=== PATIENT | male | born 1960 ===

== ENCOUNTER 2019-01-14 19:57 | Inpatient (IN) | payer BC ==
--- NOTE | 2019-01-14 20:28 | C.PDOC ---
History Of Present Illness The patient presents to the ED after being sent from his PMD's office for evaluation of abnormal labs noted today. Patient underwent blood work this morning and was found to have low hemoglobin and potassium levels. Patient denies chest pain, nausea, vomiting, diarrhea, and black/tarry stools. Time Seen by Provider: 01/14/19 20:28 Chief Complaint (Nursing): Abnormal Labs History Per: Patient History/Exam Limitations: no limitations Onset/Duration Of Symptoms: Hrs Current Symptoms Are (Timing): Still Present Additional History Per: Patient Past Medical History Reviewed: Historical Data, Nursing Documentation, Vital Signs Vital Signs: Last Vital Signs Temp 98.8 F 01/14/19 20:10 Pulse 100 H 01/14/19 20:10 Resp 20 01/14/19 20:10 BP 200/91 H 01/14/19 20:10 Pulse Ox 100 01/14/19 20:10 Primary Care Provider: Logan Aguirre - Medical History PMH: HTN Surgical History: Cholecystectomy Family History: States: Unknown Family Hx - Social History Hx Alcohol Use: No Hx Substance Use: No - Immunization History Hx Tetanus Toxoid Vaccination: No Hx Influenza Vaccination: No Hx Pneumococcal Vaccination: No Review Of Systems Constitutional: Positive for: Other (abnornal labs: low hemoglobin and potassium ). Negative for: Fever, Chills Cardiovascular: Negative for: Chest Pain, Palpitations Respiratory: Negative for: Cough, Shortness of Breath Gastrointestinal: Negative for: Nausea, Vomiting, Diarrhea, Hematochezia Genitourinary: Negative for: Dysuria, Frequency, Hematuria Musculoskeletal: Negative for: Back Pain Skin: Negative for: Rash, Lesions, Jaundice, Bruising Neurological: Negative for: Weakness, Numbness Physical Exam - Physical Exam Appears: Non-toxic, No Acute Distress Skin: Warm, Dry, Pale (slight) Head: Normacephalic Oral Mucosa: Moist Neck: Supple Chest: Symmetrical, No Deformity, No Tenderness Cardiovascular: Rhythm Regular, No Murmur Respiratory: No Rales, No Rhonchi, No Wheezing Extremity: Normal ROM Neurological/Psych: Oriented x3 ED Course And Treatment - Laboratory Results Result Diagrams: 01/14/19 20:40 01/14/19 20:40 ECG: Interpreted By Me, Viewed By Me ECG Rhythm: Sinus Rhythm (98), Nonspecific Changes O2 Sat by Pulse Oximetry: 100 (on RA) Pulse Ox Interpretation: Normal - Radiology CXR Interpretation: No: Infiltrates, Fracture, Pnemothorax Progress Note: Bloodwork, urinalysis, CXR, and EKG ordered and reviewed. Disposition Discussed With : Logan Aguirre Comment: acepted the pt on his service and took over the care at 9:34 PM Doctor Will See Patient In The: Hospital Counseled Patient/Family Regarding: Studies Performed, Diagnosis - Disposition Disposition: HOSPITALIZED Disposition Time: 20:28 Condition: FAIR Forms: #waywire (Kyrgyz) - POA Present On Arrival: Poor Glycemic Control - Clinical Impression Clinical Impression: Anemia, Renal failure, Hypokalemia - Scribe Statement The provider has reviewed the documentation as recorded by the Scribe (Fide Rose) Provider Attestation: All medical record entries made by the Scribe were at my direction and personally dictated by me. I have reviewed the chart and agree that the record accurately reflects my personal performance of the history, physical exam, medical decision making, and the department course for this patient. I have also personally directed, reviewed, and agree with the discharge instructions and disposition. Decision To Admit - Pt Status Changed To: Hospital Disposition Of: Observation - . Bed Request Type: Regular Admitting Physician: Logan Aguirre Patient Diagnosis: Anemia, Renal failure, Hypokalemia
[2019-01-14 20:45] LABS: BASO # 0.1 K/uL (0.0-0.2); EOS # 0.3 K/uL (0.0-0.7); EOS % 4.1 % (0.0-4.0); HEMOGLOBIN 7.5 g/dL (12.0-18.0); LYMPH # 1.2 K/uL (1.0-4.3); LYMPH % 17.6 % (20.0-40.0); MEAN CELL VOLUME 87.4 fL (80.0-94.0); MEAN CORPUSCULAR HEMOGLOBIN 30.4 pg (27.0-31.0); MEAN CORPUSCULAR HGB CONC 34.8 g/dL (33.0-37.0); MONO # 0.8 K/uL (0.0-0.8); MONO % 11.4 % (0.0-10.0); NEUT # 4.4 K/uL (1.8-7.0); NEUT % 65.9 % (50.0-75.0); RBC 2.48 Mil/uL (4.40-5.90); RED CELL DISTRIBUTION WIDTH 12.7 % (11.5-14.5); WHITE BLOOD COUNT 6.6 K/uL (4.8-10.8)
[2019-01-14 20:55] LABS: INR 1.1
[2019-01-14 21:15] LABS: ALB/GLOB RATIO 1.3 (1.0-2.1); ALBUMIN 3.4 g/dL (3.5-5.0); CALCIUM 6.4 mg/dl (8.6-10.4)
[2019-01-14] MEDS ORDERED: Potassium Chloride 10 mEq ER Tab PO STA (21:23)
[2019-01-14] MEDS ORDERED: Sodium Chloride 0.9% 1,000 ML IV ONE (21:26)
[2019-01-14] MEDS ORDERED: Potassium Chloride 20 mEq ER Tab PO ONE ×2 (21:38→22:37)
[2019-01-14] MEDS ORDERED: Potassium Chloride 20 mEq/15 ml LIQ UD PO ONE (21:59)
[2019-01-14 22:12] LABS: URINE BACTERIA RARE (<OCC); URINE BILIRUBIN NEGATIVE (NEGATIVE); URINE BLOOD 1+ (NEGATIVE); URINE CLARITY Clear (Clear); URINE COLOR Straw (YELLOW); URINE GLUCOSE (UA) 3+ mg/dL (Normal); URINE LEUKOCYTE ESTERASE NEG Leu/uL (Negative); URINE PROTEIN 2+ mg/dL (NEGATIVE); URINE UROBILINOGEN NORMAL mg/dL (0.2-1.0)
[2019-01-14] MEDS ORDERED: Magnesium Sulfate 1 gm in D5W 2 GM/200 ML BAG IVPB ONE (22:37)
[2019-01-14] MEDS: Magnesium Sulfate 1 gm in D5W 1 GM/100 ML BAG IVPB SCH ×2 (23:00→23:30)
--- NOTE | 2019-01-14 23:41 | CP.PCM.HP ---
History of Present Illness - History of Present Illness History of Present Illness: Chief complaint: Abnormal labs in the office, I advised the patient to go to the emergency room. History of present illness: 58-year-old male with h/o hypertension, diabetes, hypercholesterolemia, history of hyperuricemia, recurrent gout attack, renal insufficiency, uncontrolled diabetes, diabetic related complication including diabetic nephropathy. Patient recently came to my office, at that time he was complaining of increasing leg swelling. 3 weeks ago I did blood works in the office, he was noted to have high potassium level, creatinine was 7.7, and also hemoglobin was 7.8. At that time I advised the patient to go to the emergency room, patient refused to go. Then I advised the patient to come to the office, repeat blood test was done, as the patient persistently having high potassium level I advised the patient to st art Kayexalate. Patient started on Kayexalate, but he continues to take a daily. He came to the office with the complaining of leg cramps, immediately labs was done today, showing evidence of very low potassium level. He did not have any chest pain. No palpitation. No nausea no vomiting no other systemic symptoms. Blood sugar still on the high side. Patient supposed to have a follow-up with nephrology but the patient did not make any appointment until recently. He is currently full-time working. He has no problem in working. But complaining of increasing fatigue and weakness and tiredness. His leg swelling is improving. He describes that he is making good urine now Past medical history: Hypertension, diabetes, hypercholesterolemia, hyperuricemia, gout, diabetic nephropathy, renal in sufficiency Surgical history: Cholecystectomy in 2014, appendectomy many years ago. Family history: Father diabetes, hypertension Mother also in 2006 4 sisters and 4 brothers no medical history, no kids Social history: Occasional drinks alcohol. Denies any smoking now drinking daily walking exercise normally, he is working full-time Current medications: Glipizide 10 mg in the morning, 5 mg in the evening, Crestor 10 mg daily. Long-acting insulin ROS: No headache, occasional tiredness noted, no chest pain or shortness of breath, occasional lower back pain On and off leg swelling noted. Leg cramps present. Weakness present. Fatigue and tiredness easily noted. No chest pain. No palpitation. On examination: Patient has elevated blood pressure. Systolic pressure is more than diastolic. Chest bilateral good air entry Regular heart sounds noted Nontender abdomen. No pedal edema. [employer] alert awake oriented x3 No signs of uremia noted Reviewed the patient's labs. Hemoglobin is 7.5 Normal platelet count Sodium is 132, potassium is 2.8, BUN is 88, creatinine is 8.2. Calcium is 6.4, magnesium is 1.3 slight elevation of the liver enzymes present, also lipase is elevated. Urine analysis showing 2+ protein Patient is a creatinine level is 3.6 in December 2017. Assessment/recommendation: 58-year-old male with a history of uncontrolled diabetes Diabetes related complication Hypertension. Mostly uncontrolled. Hypercholesterolemia Renal insufficiency Likely anemia secondary to chronic disease. Now admitted to the hospital with multiple problems: Patient has possible pancreatitis secondary to medications, underlying pancreatic disease cannot be ruled out. Electrolyte imbalance. Will improve magnesium level first. Added potassium p.o. Worsening renal insufficiency Acute on chronic renal failure. We will control the blood pressure. Nephrology evaluation. DVT prophylaxis. Overall prognosis is guarded. I explained to the patient regarding the importance of dialysis. We will continue the telemetry monitoring. Nephrology evaluation, may need cardiology evaluation, echocardiogram, and further work-up. But the patient is clinically sound, he is alert awake oriented. He is not in any distress. We will continue to monitor in the telemetry. If there is any change will call ICU evaluation Orders placed already Present on Admission - Present on Admission Any Indicators Present on Admission: No History of DVT/PE: No History of Uncontrolled Diabetes: No Urinary Catheter: No Decubitus Ulcer Present: No Past Patient History - Infectious Disease Hx of Infectious Diseases: None - Past Social History Smoking Status: Never Smoked - CARDIAC Hx Hypertension: Yes - ENDOCRINE/METABOLIC Hx Endocrine Disorders: Yes Hx Diabetes Mellitus Type 1: Yes - PSYCHIATRIC Hx Substance Use: No - SURGICAL HISTORY Hx Cholecystectomy: Yes - ANESTHESIA Hx Anesthesia: Yes Hx Anesthesia Reactions: No Meds Allergies/Adverse Reactions: Allergies Allergy/AdvReac Type Severity Reaction Status Date / Time No Known Allergies Allergy Verified 01/14/19 20:14 Results - Vital Signs Recent Vital Signs: Last Vital Signs Temp 98.3 F 01/14/19 22:30 Pulse 98 H 01/14/19 22:30 Resp 14 01/14/19 22:30 BP 201/104 H 01/14/19 22:30 Pulse Ox 98 01/14/19 22:30 - Labs Result Diagrams: 01/14/19 20:40 01/14/19 20:40 Labs: Laboratory Results - last 24 hr 01/14/19 01/14/19 01/14/19 20:40 20:40 20:40 WBC 6.6 RBC 2.48 L Hgb 7.5 L Hct 21.6 L MCV 87.4 MCH 30.4 MCHC 34.8 RDW 12.7 Plt Count 248 MPV 8.0 Neut % (Auto) 65.9 Lymph % (Auto) 17.6 L [place] % (Auto) 11.4 H Eos % (Auto) 4.1 H Baso % (Auto) 1.0 Neut # (Auto) 4.4 Lymph # (Auto) 1.2 [place] # (Auto) 0.8 Eos # (Auto) 0.3 Baso # (Auto) 0.1 PT 12.0 INR 1.1 APTT 38.0 H Sodium 132 Potassium 2.8 L Chloride 95 L Carbon Dioxide 23 Anion Gap 17 BUN 88 H Creatinine 8.2 H* Est GFR ( Amer) 8 Est GFR (Non-Af Amer) 7 Random Glucose 396 H Calcium 6.4 L Magnesium 1.3 L Total Bilirubin 0.1 L AST 60 H ALT 91 H Alkaline Phosphatase 97 Total Protein 6.1 L Albumin 3.4 L Globulin 2.7 Albumin/Globulin Ratio 1.3 Lipase 1295 H Urine Color Urine Clarity Urine pH Ur Specific [place] Urine Protein Urine Glucose (UA) Urine Ketones Urine Blood Urine Nitrate Urine Bilirubin Urine Urobilinogen Ur Leukocyte Esterase Urine WBC (Auto) Urine RBC (Auto) Urine Bacteria Blood Type Antibody Screen 01/14/19 01/14/19 20:40 21:59 WBC RBC Hgb Hct MCV MCH MCHC RDW Plt Count MPV Neut % (Auto) Lymph % (Auto) [place] % (Auto) Eos % (Auto) Baso % (Auto) Neut # (Auto) Lymph # (Auto) [place] # (Auto) Eos # (Auto) Baso # (Auto) PT INR APTT Sodium Potassium Chloride Carbon Dioxide Anion Gap BUN Creatinine Est GFR ( Amer) Est GFR (Non-Af Amer) Random Glucose Calcium Magnesium Total Bilirubin AST ALT Alkaline Phosphatase Total Protein Albumin Globulin Albumin/Globulin Ratio Lipase Urine Color Straw Urine Clarity Clear Urine pH 7.0 Ur Specific [place] 1.005 Urine Protein 2+ H Urine Glucose (UA) 3+ H Urine Ketones Negative Urine Blood 1+ H Urine Nitrate Negative Urine Bilirubin Negative Urine Urobilinogen Normal Ur Leukocyte Esterase Neg Urine WBC (Auto) 1 Urine RBC (Auto) 2 Urine Bacteria Rare Blood Type A NEGATIVE Antibody Screen Negative
[2019-01-15 07:19] LABS: BASO # 0.1 K/uL (0.0-0.2); BASO % 0.9 % (0.0-2.0); EOS # 0.2 K/uL (0.0-0.7); EOS % 3.1 % (0.0-4.0); HEMOGLOBIN 7.6 g/dL (12.0-18.0); LYMPH % 15.1 % (20.0-40.0); MEAN CELL VOLUME 88.2 fL (80.0-94.0); MEAN CORPUSCULAR HEMOGLOBIN 30.2 pg (27.0-31.0); MEAN CORPUSCULAR HGB CONC 34.3 g/dL (33.0-37.0); MEAN PLATELET VOLUME 7.9 fL (7.2-11.7); MONO # 0.6 K/uL (0.0-0.8); MONO % 9.5 % (0.0-10.0); NEUT # 4.8 K/uL (1.8-7.0); NEUT % 71.4 % (50.0-75.0); RBC 2.53 Mil/uL (4.40-5.90); RED CELL DISTRIBUTION WIDTH 12.5 % (11.5-14.5); WHITE BLOOD COUNT 6.7 K/uL (4.8-10.8)
[2019-01-15 08:08] LABS: ALBUMIN 3.3 g/dL (3.5-5.0); CALCIUM 6.7 mg/dl (8.6-10.4)
[2019-01-15 08:26] LABS: % IRON SATURATION 21.15 (20-55)
[2019-01-15] MEDS ORDERED: Potassium Chloride 20 mEq ER Tab PO ONE (08:30)
[2019-01-15 08:35] LABS: CK-MB 1.22 ng/mL (0.0-3.38)
--- NOTE | 2019-01-15 08:54 | CP.PCM.PN ---
Subjective - Date & Time of Evaluation Date of Evaluation: 01/15/19 Time of Evaluation: 08:52 - Subjective Subjective: Patient is sitting up comfortably, he is not in any distress. He denies any chest pain. No palpitation noted. Denies any nausea no vomiting noted Patient today had abdominal sonogram and renal sonogram. Awaiting for nephrology consultation. I reviewed the patient's labs. Still potassium is on the low side. Hemoglobin is on the low side. Creatinine level is worsening at this time. I started the patient on IV supplementation of the potassium today. We will closely monitor the hemoglobin. Patient will benefit with Erythropoietin. Patient is with acute on chronic renal failure. Worsening at this time. We will also get an echocardiogram. We will follow the patient Objective - Vital Signs/Intake and Output Vital Signs (last 24 hours): Temp Pulse Resp BP Pulse Ox 98.8 F 89 20 190/88 H 98 01/15/19 08:40 01/15/19 08:40 01/15/19 08:40 01/15/19 08:40 01/15/19 08:40 Intake and Output: 01/15/19 01/15/19 06:59 18:59 Intake Total 250 Balance 250 - Medications Medications: Current Medications Amlodipine Besylate (Norvasc) 10 mg PO DAILY [facility] Carvedilol (Coreg) 6.25 mg PO BID [facility] Hydralazine HCl (Apresoline) 10 mg PO QID [facility] Sodium Chloride (Sodium Chloride 0.45%) 500 mls @ 50 mls/hr IV .Q10H [facility] Last Admin: 01/14/19 22:49 Dose: 50 mls/hr Potassium Chloride (Potassium Chloride 10 Meq/100 Ml) 10 meq in 100 mls @ 100 mls/hr IVPB Q1H [facility] Stop: 01/15/19 10:59 Potassium Chloride (Potassium Chloride 10 Meq/100 Ml) 10 meq in 100 mls @ 100 mls/hr IVPB ONCE ONE Stop: 01/15/19 09:49 Insulin Glargine (Lantus) 15 unit SC DAILY [facility] Insulin Human Regular (Novolin R) 0 unit SC ACHS [facility]; Protocol - Labs Labs: 01/15/19 06:44 01/15/19 06:44 PT 12.0 SECONDS (9.7-12.2) 01/14/19 20:40 INR 1.1 01/14/19 20:40 APTT 38.0 SECONDS (21-34) H 01/14/19 20:40
[2019-01-15 09:14] LABS: TROPONIN I 0.229 ng/mL (0.00-0.120)
[2019-01-15] MEDS: (Novolin R) Insulin Human Regular 100 units/ml vial SC SCH ×4 (09:18→21:18)
[2019-01-15] MEDS: (Lantus) Insulin Glargine, Recombinant SC SCH (09:19)
--- NOTE | 2019-01-15 10:27 | CP.PCM.CON ---
History of Present Illness - History of Present Illness History of Present Illness: 58-year-old male with h/o hypertension, diabetes type 2, hypercholesterolemia, history of hyperuricemia, recurrent gout attack, renal insufficiency with creatinine 3-4 range reported.Recently has had uncontrolled diabetes, diabetic related complication including diabetic nephropathy. Patient recently camePMD office, at that time he was complaining of increasing leg swelling. 3 weeks ago blood works revealed to have high potassium level, creatinine was 7.7, and also hemoglobin was 7.8. At that time the patient advised to go to the emergency room, patient refused to go. Then the patient to come to the office, repeat blood test was done, and due to persistently having high potassium level patient advised to start Kayexalate. PMH: DM 2 DIABETIC NEPHROPATHY HTN DL PSH: AP CJHOLEYCYSTECTOMY FH- NO CKD Review of Systems - Constitutional Constitutional: Fatigue, Weakness - EENT Eyes: absent: As Per HPI, Blind Spots, Blurred Vision, Change in Vision, Decreased Night Vision, Diplopia, Discharge, Dry Eye, Exophthalmos, Floaters, Irritation, Itchy Eyes, Loss of Peripheral Vision, Pain, Photophobia, Requires Corrective Lenses, Sees Flashes, Spots in Vision, Tunnel Vision, Other Visual Disturbances, Loss of Vision, Other Ears: absent: As Per HPI, Decreased Hearing, Ear Discharge, Ear Pain, Tinnitus, Abnormal Hearing, Disequilibrium, Dizziness, Other Nose/Mouth/Throat: absent: As Per HPI, Epistaxis, Nasal Congestion, Nasal Discharge, Nasal Obstruction, Nasal Trauma, Nose Pain, Post Nasal Drip, Sinus Pain, Sinus Pressure, Bleeding Gums, Change in Voice, Dental Pain, Dry Mouth, Dysphagia, Halitosis, Hoarsness, Lip Swelling, Mouth Lesions, Mouth Pain, Odynophagia, Sore Throat, Throat Swelling, Tongue Swelling, Facial Pain, Neck Pain, Neck Mass, Other - Cardiovascular Cardiovascular: Dyspnea on Exertion - Respiratory Respiratory: absent: As Per HPI, Cough, Dyspnea, Hemoptysis, Dyspnea on Exertion, Wheezing, Snoring, Stridor, Pain on Inspiration, Chest Congestion, Excessive Mucous Production, Change in Mucous Color, Pain with Coughing, Other - Gastrointestinal Gastrointestinal: absent: As Per HPI, Abdominal Pain, Belching, Bloating, Change in Bowel Habits, Change in Stool Character, Coffee Ground Emesis, Constipation, Cramping, Diarrhea, Dyspepsia, Dysphagia, Early Satiety, Excessive Flatus, Fecal Incontinence, Heartburn, Hematemesis, Hematochezia, Loose Stools, Melena, Nausea, Odynophagia, Temesmus, Vomiting, Other - Genitourinary Genitourinary: As Per HPI - Musculoskeletal Musculoskeletal: Muscle Weakness, Myalgias - Neurological Neurological: Weakness Past Patient History - Infectious Disease Hx of Infectious Diseases: None - Past Medical History & Family History Past Medical History?: Yes Past Family History: Reviewed and not pertinent - Past Social History Smoking Status: Never Smoked Chewing Tobacco Use: No Cigar Use: No Alcohol: None Drugs: Denies Home Situation {Lives}: With Family - CARDIAC Hx Hypertension: Yes - ENDOCRINE/METABOLIC Hx Endocrine Disorders: Yes Hx Diabetes Mellitus Type 1: Yes - MUSCULOSKELETAL/RHEUMATOLOGICAL Hx Falls: No - PSYCHIATRIC Hx Substance Use: No - SURGICAL HISTORY Hx Cholecystectomy: Yes - ANESTHESIA Hx Anesthesia: Yes Hx Anesthesia Reactions: No Meds Allergies/Adverse Reactions: Allergies Allergy/AdvReac Type Severity Reaction Status Date / Time No Known Allergies Allergy Verified 01/14/19 20:14 - Medications Medications: Current Medications Amlodipine Besylate (Norvasc) 10 mg PO DAILY [facility] Last Admin: 01/15/19 09:18 Dose: 10 mg Carvedilol (Coreg) 6.25 mg PO BID [facility] Last Admin: 01/15/19 09:19 Dose: 6.25 mg Heparin Sodium (Porcine) (Heparin) 5,000 units SC Q12 [facility] Hydralazine HCl (Apresoline) 10 mg PO QID [facility] Last Admin: 01/15/19 09:19 Dose: 10 mg Sodium Chloride (Sodium Chloride 0.45%) 500 mls @ 50 mls/hr IV .Q10H [facility] Last Admin: 01/15/19 08:59 Dose: 50 mls/hr Potassium Chloride (Potassium Chloride 10 Meq/100 Ml) 10 meq in 100 mls @ 100 mls/hr IVPB Q1H [facility] [place] Stop: 01/15/19 10:59 Last Admin: 01/15/19 08:59 Dose: 100 mls/hr Potassium Chloride (Potassium Chloride 10 Meq/100 Ml) 10 meq in 100 mls @ 100 mls/hr IVPB ONCE ONE Stop: 01/15/19 12:59 Insulin Glargine (Lantus) 15 unit SC DAILY [facility] Last Admin: 01/15/19 09:19 Dose: 15 u Insulin Human Regular (Novolin R) 0 unit SC ACHS [facility]; Protocol Last Admin: 01/15/19 09:18 Dose: 2 u Physical Exam - Constitutional Appears: No Acute Distress, Chronically Ill - Head Exam Head Exam: ATRAUMATIC, NORMAL INSPECTION - Eye Exam Eye Exam: EOMI, Normal appearance - Neck Exam Neck exam: Positive for: Normal Inspection. Negative for: Tenderness - Respiratory Exam Respiratory Exam: Clear to Auscultation Bilateral, NORMAL BREATHING PATTERN - Cardiovascular Exam Cardiovascular Exam: REGULAR RHYTHM, +S1 - GI/Abdominal Exam GI & Abdominal Exam: Soft. absent: Tenderness - Extremities Exam Extremities exam: Positive for: normal inspection. Negative for: tenderness - Neurological Exam Neurological exam: Alert, CN II-XII Intact - Skin Skin Exam: Dry, Warm Results - Vital Signs Recent Vital Signs: Last Vital Signs Temp 98.8 F 01/15/19 08:40 Pulse 99 H 01/15/19 09:23 Resp 20 01/15/19 09:23 BP 198/95 H 01/15/19 09:23 Pulse Ox 98 01/15/19 08:40 - Labs Result Diagrams: 01/15/19 06:44 01/15/19 06:44 Labs: Laboratory Results - last 24 hr 01/14/19 01/14/19 01/14/19 20:40 20:40 20:40 WBC 6.6 RBC 2.48 L Hgb 7.5 L Hct 21.6 L MCV 87.4 MCH 30.4 MCHC 34.8 RDW 12.7 Plt Count 248 MPV 8.0 Neut % (Auto) 65.9 Lymph % (Auto) 17.6 L [place] % (Auto) 11.4 H Eos % (Auto) 4.1 H Baso % (Auto) 1.0 Neut # (Auto) 4.4 Lymph # (Auto) 1.2 [place] # (Auto) 0.8 Eos # (Auto) 0.3 Baso # (Auto) 0.1 Retic Count PT 12.0 INR 1.1 APTT 38.0 H Sodium 132 Potassium 2.8 L Chloride 95 L Carbon Dioxide 23 Anion Gap 17 BUN 88 H Creatinine 8.2 H* Est GFR ( Amer) 8 Est GFR (Non-Af Amer) 7 POC Glucose (mg/dL) Random Glucose 396 H Uric Acid Calcium 6.4 L Phosphorus Magnesium 1.3 L Iron TIBC % Saturation Ferritin Total Bilirubin 0.1 L AST 60 H ALT 91 H Alkaline Phosphatase 97 Total Creatine Kinase CK-MB (Mass) Troponin I Total Protein 6.1 L Albumin 3.4 L Globulin 2.7 Albumin/Globulin Ratio 1.3 Lipase 1295 H Urine Color Urine Clarity Urine pH Ur Specific [place] Urine Protein Urine Glucose (UA) Urine Ketones Urine Blood Urine Nitrate Urine Bilirubin Urine Urobilinogen Ur Leukocyte Esterase Urine WBC (Auto) Urine RBC (Auto) Urine Bacteria Blood Type Antibody Screen 01/14/19 01/14/19 01/15/19 20:40 21:59 06:16 WBC RBC Hgb Hct MCV MCH MCHC RDW Plt Count MPV Neut % (Auto) Lymph % (Auto) [place] % (Auto) Eos % (Auto) Baso % (Auto) Neut # (Auto) Lymph # (Auto) [place] # (Auto) Eos # (Auto) Baso # (Auto) Retic Count PT INR APTT Sodium Potassium Chloride Carbon Dioxide Anion Gap BUN Creatinine Est GFR ( Amer) Est GFR (Non-Af Amer) POC Glucose (mg/dL) 204 H Random Glucose Uric Acid Calcium Phosphorus Magnesium Iron TIBC % Saturation Ferritin Total Bilirubin AST ALT Alkaline Phosphatase Total Creatine Kinase CK-MB (Mass) Troponin I Total Protein Albumin Globulin Albumin/Globulin Ratio Lipase Urine Color Straw Urine Clarity Clear Urine pH 7.0 Ur Specific [place] 1.005 Urine Protein 2+ H Urine Glucose (UA) 3+ H Urine Ketones Negative Urine Blood 1+ H Urine Nitrate Negative Urine Bilirubin Negative Urine Urobilinogen Normal Ur Leukocyte Esterase Neg Urine WBC (Auto) 1 Urine RBC (Auto) 2 Urine Bacteria Rare Blood Type A NEGATIVE Antibody Screen Negative 01/15/19 01/15/19 01/15/19 06:44 06:44 06:44 WBC 6.7 RBC 2.53 L Hgb 7.6 L Hct 22.3 L MCV 88.2 MCH 30.2 MCHC 34.3 RDW 12.5 Plt Count 258 MPV 7.9 Neut % (Auto) 71.4 Lymph % (Auto) 15.1 L [place] % (Auto) 9.5 Eos % (Auto) 3.1 Baso % (Auto) 0.9 Neut # (Auto) 4.8 Lymph # (Auto) 1.0 [place] # (Auto) 0.6 Eos # (Auto) 0.2 Baso # (Auto) 0.1 Retic Count 1.4 PT INR APTT Sodium 136 Potassium 2.4 L* Chloride 100 Carbon Dioxide 22 Anion Gap 17 BUN 90 H Creatinine 9.0 H* Est GFR ( Amer) 7 Est GFR (Non-Af Amer) 6 POC Glucose (mg/dL) Random Glucose 201 H D Uric Acid 15.0 H Calcium 6.7 L Phosphorus 6.4 H Magnesium 2.0 Iron 66 TIBC 312 % Saturation 21.15 Ferritin 104.0 Total Bilirubin 0.2 AST 67 H ALT 84 H Alkaline Phosphatase 93 Total Creatine Kinase 604 H CK-MB (Mass) 1.22 Troponin I 0.2290 H* Total Protein 6.6 Albumin 3.3 L Globulin 3.4 Albumin/Globulin Ratio 1.0 Lipase 1133 H Urine Color Urine Clarity Urine pH Ur Specific [place] Urine Protein Urine Glucose (UA) Urine Ketones Urine Blood Urine Nitrate Urine Bilirubin Urine Urobilinogen Ur Leukocyte Esterase Urine WBC (Auto) Urine RBC (Auto) Urine Bacteria Blood Type Antibody Screen Assessment & Plan (1) Chronic kidney disease, stage V Status: Acute (2) Type 2 diabetes mellitus with diabetic nephropathy Status: Acute (3) Hypertensive chronic kidney disease with stage 5 chronic kidney disease or end stage renal disease Status: Acute - Assessment and Plan (Free Text) Plan: renal US treat hypokalemia- low due to kayexalate check hep panel considering advanced azotemia, best to start dialysis - will need cath then dialysis in AM
--- NOTE | 2019-01-15 10:32 | RAD ---
Date of service: 01/14/2019 PROCEDURE: CHEST RADIOGRAPH, 1 VIEW HISTORY: SOB COMPARISON: None available. FINDINGS: LUNGS: No infiltrate. There is a vaguely nodular opacity in right upper lobe in the interspace between the anterior ends of the 1st and 2nd ribs. Recommend evaluation with computed tomography. PLEURA: No pneumothorax or pleural fluid seen. CARDIOVASCULAR: No aortic atherosclerotic calcification present. Normal. OSSEOUS STRUCTURES: No significant abnormalities. VISUALIZED UPPER ABDOMEN: Normal. OTHER FINDINGS: None. IMPRESSION: Possible nodule in right upper lobe. Recommend further evaluation with computed tomography.
--- NOTE | 2019-01-15 10:40 | CP.PCM.CON ---
History of Present Illness - History of Present Illness History of Present Illness: Vascular surgery consult note for Dr. Mode Dawkins, PGY-2 Pt seen/examined at bedside 58M w/PMH sig for ESRD requiring HD consulted for permacath placement. Pt sent to ED for abnormal labs on PMD office visit, had hyperkalemia. Pt treated with kayexelate with hypokalemia, sent to hospital. Pt reports still makes some urine. Denies N & V, F & C, SOB, changes in bowel or bladder habits, other complaints. PMH: ESRD requiring HD, DM, HTN, HLD, hx hyperuricemia, gout, diabetic nephropathy PSH: Appy, cholecystectomy All: NKDA SH: Denies ETOH, tobacco or illicit drug use PMD: Dr. Rodriguez Review of Systems - Review of Systems All systems: reviewed and no additional remarkable complaints except - Constitutional Constitutional: absent: Chills, Fever - EENT Ears: absent: Dizziness Nose/Mouth/Throat: absent: Sore Throat - Cardiovascular Cardiovascular: absent: Chest Pain - Gastrointestinal Gastrointestinal: absent: Abdominal Pain, Nausea, Vomiting - Genitourinary Genitourinary: absent: Change in Urinary Stream, Hematuria - Musculoskeletal Musculoskeletal: absent: Back Pain - Integumentary Integumentary: absent: Rash - Neurological Neurological: absent: Weakness - Psychiatric Psychiatric: absent: Change in Appetite Past Patient History - Infectious Disease Hx of Infectious Diseases: None - Past Medical History & Family History Past Medical History?: Yes Past Family History: Reviewed and not pertinent - Past Social History Smoking Status: Never Smoked Chewing Tobacco Use: No Cigar Use: No Alcohol: None Drugs: Denies Home Situation {Lives}: With Family - CARDIAC Hx Hypertension: Yes - ENDOCRINE/METABOLIC Hx Endocrine Disorders: Yes Hx Diabetes Mellitus Type 1: Yes - MUSCULOSKELETAL/RHEUMATOLOGICAL Hx Falls: No - PSYCHIATRIC Hx Substance Use: No - SURGICAL HISTORY Hx Cholecystectomy: Yes - ANESTHESIA Hx Anesthesia: Yes Hx Anesthesia Reactions: No Meds Allergies/Adverse Reactions: Allergies Allergy/AdvReac Type Severity Reaction Status Date / Time No Known Allergies Allergy Verified 01/14/19 20:14 - Medications Medications: Current Medications Amlodipine Besylate (Norvasc) 10 mg PO DAILY [facility] Last Admin: 01/15/19 09:18 Dose: 10 mg Carvedilol (Coreg) 6.25 mg PO BID [facility] Last Admin: 01/15/19 09:19 Dose: 6.25 mg Heparin Sodium (Porcine) (Heparin) 5,000 units SC Q12 [facility] Hydralazine HCl (Apresoline) 10 mg PO QID [facility] Last Admin: 01/15/19 09:19 Dose: 10 mg Sodium Chloride (Sodium Chloride 0.45%) 500 mls @ 50 mls/hr IV .Q10H [facility] Last Admin: 01/15/19 08:59 Dose: 50 mls/hr Potassium Chloride (Potassium Chloride 10 Meq/100 Ml) 10 meq in 100 mls @ 100 mls/hr IVPB Q1H [facility] Stop: 01/15/19 10:59 Last Admin: 01/15/19 08:59 Dose: 100 mls/hr Potassium Chloride (Potassium Chloride 10 Meq/100 Ml) 10 meq in 100 mls @ 100 mls/hr IVPB ONCE ONE Stop: 01/15/19 12:59 Insulin Glargine (Lantus) 15 unit SC DAILY [facility] Last Admin: 01/15/19 09:19 Dose: 15 u Insulin Human Regular (Novolin R) 0 unit SC ACHS [facility]; Protocol Last Admin: 01/15/19 09:18 Dose: 2 u Physical Exam - Constitutional Appears: Non-toxic, No Acute Distress - Head Exam Head Exam: ATRAUMATIC, NORMAL INSPECTION, NORMOCEPHALIC - Eye Exam Eye Exam: EOMI, Normal appearance - ENT Exam ENT Exam: Mucous Membranes Moist, Normal Exam - Neck Exam Neck exam: Positive for: Full Rom, Normal Inspection - Respiratory Exam Respiratory Exam: NORMAL BREATHING PATTERN - Cardiovascular Exam Cardiovascular Exam: REGULAR RHYTHM, +S1, +S2 - GI/Abdominal Exam GI & Abdominal Exam: Normal Bowel Sounds, Soft. absent: Tenderness Additional comments: well healed linear scar over RLQ, RUQ - Extremities Exam Extremities exam: Positive for: normal inspection - Neurological Exam Neurological exam: Alert, CN II-XII Intact, Oriented x3 - Psychiatric Exam Psychiatric exam: Normal Affect, Normal Mood - Skin Skin Exam: Dry, Intact, Normal Color, Warm Results - Vital Signs Recent Vital Signs: Last Vital Signs Temp 98.8 F 01/15/19 08:40 Pulse 99 H 01/15/19 09:23 Resp 20 01/15/19 09:23 BP 198/95 H 01/15/19 09:23 Pulse Ox 98 01/15/19 08:40 - Labs Result Diagrams: 01/15/19 06:44 01/15/19 06:44 Labs: Laboratory Results - last 24 hr 01/14/19 01/14/19 01/14/19 20:40 20:40 20:40 WBC 6.6 RBC 2.48 L Hgb 7.5 L Hct 21.6 L MCV 87.4 MCH 30.4 MCHC 34.8 RDW 12.7 Plt Count 248 MPV 8.0 Neut % (Auto) 65.9 Lymph % (Auto) 17.6 L [place] % (Auto) 11.4 H Eos % (Auto) 4.1 H Baso % (Auto) 1.0 Neut # (Auto) 4.4 Lymph # (Auto) 1.2 [place] # (Auto) 0.8 Eos # (Auto) 0.3 Baso # (Auto) 0.1 Retic Count PT 12.0 INR 1.1 APTT 38.0 H Sodium 132 Potassium 2.8 L Chloride 95 L Carbon Dioxide 23 Anion Gap 17 BUN 88 H Creatinine 8.2 H* Est GFR ( Amer) 8 Est GFR (Non-Af Amer) 7 POC Glucose (mg/dL) Random Glucose 396 H Uric Acid Calcium 6.4 L Phosphorus Magnesium 1.3 L Iron TIBC % Saturation Ferritin Total Bilirubin 0.1 L AST 60 H ALT 91 H Alkaline Phosphatase 97 Total Creatine Kinase CK-MB (Mass) Troponin I Total Protein 6.1 L Albumin 3.4 L Globulin 2.7 Albumin/Globulin Ratio 1.3 Lipase 1295 H Urine Color Urine Clarity Urine pH Ur Specific [place] Urine Protein Urine Glucose (UA) Urine Ketones Urine Blood Urine Nitrate Urine Bilirubin Urine Urobilinogen Ur Leukocyte Esterase Urine WBC (Auto) Urine RBC (Auto) Urine Bacteria Blood Type Antibody Screen 01/14/19 01/14/19 01/15/19 20:40 21:59 06:16 WBC RBC Hgb Hct MCV MCH MCHC RDW Plt Count MPV Neut % (Auto) Lymph % (Auto) [place] % (Auto) Eos % (Auto) Baso % (Auto) Neut # (Auto) Lymph # (Auto) [place] # (Auto) Eos # (Auto) Baso # (Auto) Retic Count PT INR APTT Sodium Potassium Chloride Carbon Dioxide Anion Gap BUN Creatinine Est GFR ( Amer) Est GFR (Non-Af Amer) POC Glucose (mg/dL) 204 H Random Glucose Uric Acid Calcium Phosphorus Magnesium Iron TIBC % Saturation Ferritin Total Bilirubin AST ALT Alkaline Phosphatase Total Creatine Kinase CK-MB (Mass) Troponin I Total Protein Albumin Globulin Albumin/Globulin Ratio Lipase Urine Color Straw Urine Clarity Clear Urine pH 7.0 Ur Specific [place] 1.005 Urine Protein 2+ H Urine Glucose (UA) 3+ H Urine Ketones Negative Urine Blood 1+ H Urine Nitrate Negative Urine Bilirubin Negative Urine Urobilinogen Normal Ur Leukocyte Esterase Neg Urine WBC (Auto) 1 Urine RBC (Auto) 2 Urine Bacteria Rare Blood Type A NEGATIVE Antibody Screen Negative 01/15/19 01/15/19 01/15/19 06:44 06:44 06:44 WBC 6.7 RBC 2.53 L Hgb 7.6 L Hct 22.3 L MCV 88.2 MCH 30.2 MCHC 34.3 RDW 12.5 Plt Count 258 MPV 7.9 Neut % (Auto) 71.4 Lymph % (Auto) 15.1 L [place] % (Auto) 9.5 Eos % (Auto) 3.1 Baso % (Auto) 0.9 Neut # (Auto) 4.8 Lymph # (Auto) 1.0 [place] # (Auto) 0.6 Eos # (Auto) 0.2 Baso # (Auto) 0.1 Retic Count 1.4 PT INR APTT Sodium 136 Potassium 2.4 L* Chloride 100 Carbon Dioxide 22 Anion Gap 17 BUN 90 H Creatinine 9.0 H* Est GFR ( Amer) 7 Est GFR (Non-Af Amer) 6 POC Glucose (mg/dL) Random Glucose 201 H D Uric Acid 15.0 H Calcium 6.7 L Phosphorus 6.4 H Magnesium 2.0 Iron 66 TIBC 312 % Saturation 21.15 Ferritin 104.0 Total Bilirubin 0.2 AST 67 H ALT 84 H Alkaline Phosphatase 93 Total Creatine Kinase 604 H CK-MB (Mass) 1.22 Troponin I 0.2290 H* Total Protein 6.6 Albumin 3.3 L Globulin 3.4 Albumin/Globulin Ratio 1.0 Lipase 1133 H Urine Color Urine Clarity Urine pH Ur Specific [place] Urine Protein Urine Glucose (UA) Urine Ketones Urine Blood Urine Nitrate Urine Bilirubin Urine Urobilinogen Ur Leukocyte Esterase Urine WBC (Auto) Urine RBC (Auto) Urine Bacteria Blood Type Antibody Screen Assessment & Plan - Assessment and Plan (Free Text) Assessment: 58M w/ESRD requiring HD access Plan: NPO pMN Plan for permacath placement on 01/16 Hold [facility] Further care as per primary team DW Dr. Amna Dawkins, PGY-2 - Date & Time Date: 01/15/19 Time: 10:43
--- NOTE | 2019-01-15 11:54 | US ---
Abdominal ultrasound HISTORY: Chronic renal insufficiency. Pancreatitis. Abdominal pain. COMPARISON: Renal ultrasound dated 01/15/2018 TECHNIQUE: Real-time sonography was performed through the abdomen. FINDINGS: Liver: 14.4 centimeters in length. Increased echogenicity of the hepatic parenchymal cortex suggestive for fatty infiltration versus hepatic parenchymal disease. Clinical correlation. Gallbladder: Prior cholecystectomy. Common bile duct measures 3.7 millimeters, within normal limits. Heterogeneous appearance of the pancreas with limited visualization of the pancreatic head and tail. Clinical correlation. Correlation with CT scan may be helpful if clinically indicated to better evaluate the pancreas. Spleen measures 9.2 centimeters in length, within normal limits. Visualized aorta and IVC are preserved. Right kidney: 11.1 x 5.9 x 5.8 centimeters. Increased echogenicity of the renal parenchymal cortex suggestive for medical renal disease. No calculi or hydronephrosis. Upper pole hypoechoic cyst measuring 9.2 x 7.2 x 8.0 centimeters. Additional midpole hypoechoic cyst measuring 1.4 x 1.4 x 1.3 centimeters. Left Kidney: 11.3 x 5.3 x 5.0 centimeters. Increased echogenicity of the renal parenchymal cortex suggestive for medical renal disease. No calculi or hydronephrosis. Midpole hypoechoic cyst measuring 1.6 x 1.1 x 1.2 centimeters. Additional lower pole hypoechoic cyst measuring 1.4 x 1.3 x 1.4 centimeters. Impression: 1. Increased echogenicity of the bilateral renal parenchymal cortices suggestive for medical renal disease. Clinical correlation. 2. Bilateral renal cysts, the largest of which measures up to 9.2 centimeters in the upper pole of the right kidney. 3. Heterogeneous appearance of the visualized pancreas. If there is concern for pancreatitis, correlation with contrast-enhanced CT scan of the abdomen and pelvis may be helpful if clinically indicated. Clinical correlation. 4. Increased echogenicity of the hepatic parenchymal cortex suggestive for fatty infiltration versus hepatic parenchymal disease. Clinical correlation. 5. Prior cholecystectomy.
--- NOTE | 2019-01-15 12:10 | CARD ---
APPROVED REPORT Date of service: 01/14/2019 EKG Measurement Heart [id number] <Conclusion> Normal sinus rhythm ST & T wave abnormality, consider inferior ischemia Prolonged QT Abnormal ECG
--- NOTE | 2019-01-15 12:49 | CARD ---
APPROVED REPORT Date of service: 01/15/2019 EXAM: Two-dimensional and M-mode echocardiogram with Doppler and color Doppler. INDICATION Chest Pain RISK FACTORS Hypertension Hyperlipidemia Diabetes 2D DIMENSIONS IVSd1.1 (0.7-1.1cm)LVDd4.6 (3.9-5.9cm) PWd1.2 (0.7-1.1cm)LA [id number] (18-58mL) LVDs2.9 (2.5-4.0cm)FS (%) 37.1 % LVEF (%)67.0 (>50%)LVEF (Steel's)64.87 % M-Mode DIMENSIONS Left Atrium (MM)4.16 (2.5-4.0cm)IVSd1.24 (0.7-1.1cm) Aortic Root3.70 (2.2-3.7cm)LVDd4.56 (4.0-5.6cm) Aortic Cusp Exc.1.84 (1.5-2.0cm)PWd1.24 (0.7-1.1cm) FS (%) 34 %LVDs3.01 (2.0-3.8cm) LVEF (%)63 (>50%) Mitral Valve MV E Updrsauk11.3cm/sMV A Slyorlpl549.6cm/sE/A ratio0.6 TDI Lateral E' Peak V8.04cm/sMedial E' Peak V6.32cm/sE/Lateral E'8.9 E/Medial E'11.3 Tricuspid Valve TR Peak Hftqgnso621jj/sTR Peak Gr.90nkJuKIRV22exCb LEFT VENTRICLE The left ventricle is normal size. There is normal left ventricular wall thickness. The left ventricular function is normal. The left ventricular ejection fraction is within the normal range. No regional wall motion abnormalities noted. Transmitral Doppler flow pattern is Grade I-abnormal relaxation pattern. No left ventricle thrombus noted on this study. There is no ventricular septal defect visualized. There is no left ventricular aneurysm. There is no mass noted in the left ventricle. RIGHT VENTRICLE The right ventricle is normal size. There is normal right ventricular wall thickness. The right ventricular systolic function is normal. ATRIA The left atrium size is normal. The right atrium size is normal. The interatrial septum is intact with no evidence for an atrial septal defect. AORTIC VALVE The aortic valve is normal in structure and function. No aortic regurgitation is present. There is no aortic valvular stenosis. There is no aortic valvular vegetation. MITRAL VALVE The mitral valve is normal in structure and function. There is no evidence of mitral valve prolapse. There is no mitral valve stenosis. Mitral regurgitation is mild. TRICUSPID VALVE The tricuspid valve is normal in structure and function. There is mild tricuspid regurgitation. Right ventricular systolic pressure is estimated at less than 30 mmHg. There is no tricuspid valve prolapse or vegetation. There is no tricuspid valve stenosis. PULMONIC VALVE The pulmonary valve is normal in structure and function. There is no pulmonic valvular regurgitation. There is no pulmonic valvular stenosis. GREAT VESSELS The aortic root is normal in size. The ascending aorta is normal in size. The pulmonary artery is normal. The IVC is normal in size and collapses >50% with inspiration. PERICARDIAL EFFUSION The pericardium appears normal. There is no pleural effusion. <Conclusion> The left ventricular function is normal. The left ventricular ejection fraction is within the normal range. No regional wall motion abnormalities noted. Mitral regurgitation is mild.
[2019-01-15 14:20] LABS: BLOOD UREA NITROGEN 82 mg/dL (9-20); CALCIUM 6.8 mg/dl (8.6-10.4); GFR NON-AFRICAN AMERICAN 6
[2019-01-15 14:46] LABS: HEPATITIS B SURFACE AG Negative (NEGATIVE)
[2019-01-15 14:51] LABS: HEPATITIS B CORE AB NEGATIVE (NEGATIVE)
[2019-01-15 15:03] LABS: HEPATITIS C ANTIBODY NEGATIVE (NEGATIVE)
[2019-01-16 07:16] LABS: HEMOGLOBIN 8.9 g/dL (12.0-18.0); MEAN CELL VOLUME 88.8 fL (80.0-94.0); MEAN CORPUSCULAR HEMOGLOBIN 30.4 pg (27.0-31.0); MEAN CORPUSCULAR HGB CONC 34.2 g/dL (33.0-37.0); MEAN PLATELET VOLUME 7.9 fL (7.2-11.7); RBC 2.94 Mil/uL (4.40-5.90); RED CELL DISTRIBUTION WIDTH 12.9 % (11.5-14.5); WHITE BLOOD COUNT 6.8 K/uL (4.8-10.8)
[2019-01-16] MEDS: (Novolin R) Insulin Human Regular 100 units/ml vial SC SCH ×4 (07:20→21:26)
[2019-01-16 07:52] LABS: ALBUMIN (PEP) 2.6 g/dL (3.8-4.8); ALPHA-1-GLOBULIN (PEP) 0.4 g/dL (0.2-0.3)
[2019-01-16 08:10] LABS: ALBUMIN 3.4 g/dL (3.5-5.0); CALCIUM 7.4 mg/dl (8.6-10.4)
--- NOTE | 2019-01-16 08:10 | CP.PCM.CON ---
History of Present Illness - History of Present Illness History of Present Illness: ASked to see pt for anemia. PMH- DM, HTN- now with elev Cr- for HD Denies GI bleed Review of Systems - Constitutional Constitutional: Fatigue. absent: Weight Loss - EENT Eyes: absent: Diplopia Nose/Mouth/Throat: absent: Mouth Pain - Cardiovascular Cardiovascular: absent: Chest Pain, Dyspnea - Respiratory Respiratory: absent: Dyspnea, Hemoptysis, Wheezing - Gastrointestinal Gastrointestinal: absent: Abdominal Pain, Belching, Coffee Ground Emesis, Dysphagia, Heartburn, Hematemesis, Hematochezia, Loose Stools, Melena, Nausea, Odynophagia, Vomiting - Genitourinary Genitourinary: absent: Hematuria, Nocturia - Musculoskeletal Musculoskeletal: absent: Muscle Cramps - Integumentary Integumentary: absent: Rash, Jaundice - Neurological Neurological: absent: Convulsions Past Patient History - Infectious Disease Hx of Infectious Diseases: None - Past Medical History & Family History Past Medical History?: Yes Past Family History: Reviewed and not pertinent - Past Social History Smoking Status: Never Smoked Chewing Tobacco Use: No Cigar Use: No Alcohol: None Drugs: Denies Home Situation {Lives}: With Family - CARDIAC Hx Hypertension: Yes - PULMONARY Hx Respiratory Disorders: No - NEUROLOGICAL Hx Neurological Disorder: No - RENAL Hx Chronic Kidney Disease: Yes - ENDOCRINE/METABOLIC Hx Endocrine Disorders: Yes Hx Diabetes Mellitus Type 1: Yes - HEMATOLOGICAL/ONCOLOGICAL Hx Blood Disorders: No - INTEGUMENTARY Hx Dermatological Problems: No - MUSCULOSKELETAL/RHEUMATOLOGICAL Hx Falls: No - GASTROINTESTINAL Hx Gastrointestinal Disorders: No - GENITOURINARY/GYNECOLOGICAL Hx Genitourinary Disorders: No - PSYCHIATRIC Hx Substance Use: No - SURGICAL HISTORY Hx Cholecystectomy: Yes - ANESTHESIA Hx Anesthesia: Yes Hx Anesthesia Reactions: No Meds Allergies/Adverse Reactions: Allergies Allergy/AdvReac Type Severity Reaction Status Date / Time No Known Allergies Allergy Verified 01/14/19 20:14 - Medications Medications: Current Medications Amlodipine Besylate (Norvasc) 10 mg PO DAILY [facility] Last Admin: 01/15/19 09:18 Dose: 10 mg Carvedilol (Coreg) 6.25 mg PO BID [facility] Last Admin: 01/15/19 17:01 Dose: 6.25 mg Heparin Sodium (Porcine) (Heparin) 5,000 units SC Q12 [facility] Last Admin: 01/15/19 11:59 Dose: 5,000 units Hydralazine HCl (Apresoline) 10 mg PO QID [facility] Last Admin: 01/15/19 21:44 Dose: 10 mg Sodium Chloride (Sodium Chloride 0.45%) 500 mls @ 50 mls/hr IV .Q10H [facility] Last Admin: 01/16/19 05:09 Dose: Not Given Insulin Glargine (Lantus) 15 unit SC DAILY [facility] Last Admin: 01/15/19 09:19 Dose: 15 u Insulin Human Regular (Novolin R) 0 unit SC ACHS [facility]; Protocol Last Admin: 01/16/19 07:20 Dose: Not Given Physical Exam - Constitutional Appears: Well - Neck Exam Neck exam: Negative for: Tenderness - Respiratory Exam Respiratory Exam: Clear to Auscultation Bilateral - Cardiovascular Exam Cardiovascular Exam: RRR - GI/Abdominal Exam GI & Abdominal Exam: Normal Bowel Sounds, Soft. absent: Distended, Guarding, Mass, Rebound, Tenderness - Extremities Exam Extremities exam: Positive for: pedal edema - Neurological Exam Neurological exam: Alert, Oriented x3 - Psychiatric Exam Psychiatric exam: Normal Mood - Skin Skin Exam: Intact Results - Vital Signs Recent Vital Signs: Last Vital Signs Temp 97.9 F 01/16/19 07:10 Pulse 93 H 01/16/19 07:10 Resp 20 01/16/19 07:10 BP 170/90 H 01/16/19 07:10 Pulse Ox 96 01/16/19 07:10 - Labs Result Diagrams: 01/16/19 06:45 01/15/19 13:44 Labs: Laboratory Results - last 24 hr 01/14/19 01/15/19 01/15/19 20:40 06:16 06:44 WBC RBC Hgb Hct MCV MCH MCHC RDW Plt Count MPV Sodium 136 Potassium 2.4 L* Chloride 100 Carbon Dioxide 22 Anion Gap 17 BUN 90 H Creatinine 9.0 H* Est GFR ( Amer) 7 Est GFR (Non-Af Amer) 6 POC Glucose (mg/dL) 204 H Random Glucose 201 H D Uric Acid 15.0 H Calcium 6.7 L Phosphorus 6.4 H Magnesium 2.0 % Saturation Ferritin 104.0 Total Bilirubin 0.2 AST 67 H ALT 84 H Alkaline Phosphatase 93 Total Creatine Kinase 604 H CK-MB (Mass) 1.22 Troponin I 0.2290 H* Total Protein 6.6 Total Protein (PEP) Albumin 3.3 L Albumin (PEP) Globulin 3.4 Albumin/Globulin Ratio 1.0 Meldr-0-Enwdsceab Fxhvm-8-Paoazdahd Qpri-1-Cigyvhkl Kpxv-5-Anxbjrvk Gamma Globulins Abnorm Protein Band 1 Abnorm Protein Band 2 Abnorm Protein Band 3 Lipase 1133 H Stool Occult Blood VIC & SPEP Interp Hep Bs Antigen Hep Bs Antibody Hep B Core IgM Ab Hepatitis C Antibody Blood Type A NEGATIVE Blood Type Confirm A NEGATIVE Antibody Screen Negative 01/15/19 01/15/19 01/15/19 06:44 06:44 13:44 WBC RBC Hgb Hct MCV MCH MCHC RDW Plt Count MPV Sodium 134 Potassium 3.4 L Chloride 98 Carbon Dioxide 22 Anion Gap 17 BUN 82 H Creatinine 8.6 H* Est GFR ( Amer) 8 Est GFR (Non-Af Amer) 6 POC Glucose (mg/dL) Random Glucose 366 H D Uric Acid Calcium 6.8 L Phosphorus 7.2 H Magnesium % Saturation 21.15 Ferritin 130.0 Total Bilirubin AST ALT Alkaline Phosphatase Total Creatine Kinase CK-MB (Mass) Troponin I Total Protein Total Protein (PEP) 5.7 L Albumin Albumin (PEP) 2.6 L Globulin Albumin/Globulin Ratio Abhws-0-Vwiaijdfx 0.4 H Pmkxf-6-Chdqqydsh 0.9 Ilqh-8-Usxlhvga 0.4 Fthj-9-Czddhbfu 0.4 Gamma Globulins 1.0 Abnorm Protein Band 1 TEST NOT PERFORMED Abnorm Protein Band 2 TEST NOT PERFORMED Abnorm Protein Band 3 TEST NOT PERFORMED Lipase Stool Occult Blood VIC & SPEP Interp See note Hep Bs Antigen Negative Hep Bs Antibody Hep B Core IgM Ab Negative Hepatitis C Antibody Negative Blood Type Blood Type Confirm Antibody Screen 01/15/19 01/15/19 01/15/19 13:44 13:44 16:19 WBC RBC Hgb Hct MCV MCH MCHC RDW Plt Count MPV Sodium Potassium Chloride Carbon Dioxide Anion Gap BUN Creatinine Est GFR ( Amer) Est GFR (Non-Af Amer) POC Glucose (mg/dL) 274 H Random Glucose Uric Acid Calcium Phosphorus Magnesium % Saturation 24 Ferritin Total Bilirubin AST ALT Alkaline Phosphatase Total Creatine Kinase CK-MB (Mass) Troponin I Total Protein Total Protein (PEP) Albumin Albumin (PEP) Globulin Albumin/Globulin Ratio Jmtly-1-Rmjvfbkqg Khbbe-1-Moslstxvv Hose-1-Goyuqzvb Wbwz-6-Nvrowcgg Gamma Globulins Abnorm Protein Band 1 Abnorm Protein Band 2 Abnorm Protein Band 3 Lipase Stool Occult Blood VIC & SPEP Interp Hep Bs Antigen Hep Bs Antibody Positive Hep B Core IgM Ab Hepatitis C Antibody Blood Type Blood Type Confirm Antibody Screen 01/15/19 01/15/19 01/16/19 16:27 20:58 06:23 WBC RBC Hgb Hct MCV MCH MCHC RDW Plt Count MPV Sodium Potassium Chloride Carbon Dioxide Anion Gap BUN Creatinine Est GFR ( Amer) Est GFR (Non-Af Amer) POC Glucose (mg/dL) 312 H 261 H Random Glucose Uric Acid Calcium Phosphorus Magnesium % Saturation Ferritin Total Bilirubin AST ALT Alkaline Phosphatase Total Creatine Kinase CK-MB (Mass) Troponin I Total Protein Total Protein (PEP) Albumin Albumin (PEP) Globulin Albumin/Globulin Ratio Nadgn-9-Belgmwmdw Pdjuz-2-Pfhqikctc Jjbv-4-Dtnhccfb Byst-9-Dkrxbztb Gamma Globulins Abnorm Protein Band 1 Abnorm Protein Band 2 Abnorm Protein Band 3 Lipase Stool Occult Blood Positive H VIC & SPEP Interp Hep Bs Antigen Hep Bs Antibody Hep B Core IgM Ab Hepatitis C Antibody Blood Type Blood Type Confirm Antibody Screen 01/16/19 06:45 WBC 6.8 RBC 2.94 L Hgb 8.9 L Hct 26.1 L MCV 88.8 MCH 30.4 MCHC 34.2 RDW 12.9 Plt Count 268 MPV 7.9 Sodium Potassium Chloride Carbon Dioxide Anion Gap BUN Creatinine Est GFR ( Amer) Est GFR (Non-Af Amer) POC Glucose (mg/dL) Random Glucose Uric Acid Calcium Phosphorus Magnesium % Saturation Ferritin Total Bilirubin AST ALT Alkaline Phosphatase Total Creatine Kinase CK-MB (Mass) Troponin I Total Protein Total Protein (PEP) Albumin Albumin (PEP) Globulin Albumin/Globulin Ratio Cvwtu-0-Jzvmyvvjv Dwphw-0-Vrdiyoeyo Yzzb-2-Zgderwrc Osyy-3-Qguvwdxw Gamma Globulins Abnorm Protein Band 1 Abnorm Protein Band 2 Abnorm Protein Band 3 Lipase Stool Occult Blood VIC & SPEP Interp Hep Bs Antigen Hep Bs Antibody Hep B Core IgM Ab Hepatitis C Antibody Blood Type Blood Type Confirm Antibody Screen Assessment & Plan (1) OB + stool Assessment and Plan: anemia. Anemia is likely c hronic- CRF. G pos- consider hemorrhoids, gastritis, polyp. Denies GI symptoms. Rec- PPI, check Hb. Will need colonsocopy. Consider EGD. Status: Acute (2) Anemia Status: Acute (3) Chronic kidney disease, stage V Status: Acute (4) Renal failure Status: Acute (5) Type 2 diabetes mellitus with diabetic nephropathy Status: Acute
[2019-01-16] MEDS ORDERED: Potassium Chloride 20 mEq ER Tab PO ONE (08:29)
[2019-01-16] MEDS: (Lantus) Insulin Glargine, Recombinant SC SCH (09:53)
[2019-01-16] MEDS: Pantoprazole 40 mg EC Tab PO SCH (10:10)
[2019-01-16] MEDS ORDERED: HEPARIN-NS 5,000 UNITS/500 ML 5,000 UNIT/500 ML BAG IV ONE (10:36)
--- NOTE | 2019-01-16 11:20 | CP.PCM.PN ---
Subjective - Date & Time of Evaluation Date of Evaluation: 01/16/19 Time of Evaluation: 11:17 - Subjective Subjective: for permcath now K still low despite repletion HTN elevated Hg low phos elevated feels about same- no new complaint no dyspnea, CP, n, v, diarrhea Objective - Vital Signs/Intake and Output Vital Signs (last 24 hours): Temp Pulse Resp BP Pulse Ox 97.9 F 93 H 20 161/85 H 96 01/16/19 07:10 01/16/19 10:10 01/16/19 07:10 01/16/19 10:10 01/16/19 07:10 Intake and Output: 01/16/19 01/16/19 06:59 18:59 Intake Total 0 Balance 0 - Medications Medications: Current Medications Amlodipine Besylate (Norvasc) 10 mg PO DAILY [facility] Last Admin: 01/15/19 09:18 Dose: 10 mg Carvedilol (Coreg) 6.25 mg PO BID [facility] Last Admin: 01/16/19 10:10 Dose: 6.25 mg Heparin Sodium (Porcine) (Heparin) 5,000 units SC Q12 [facility] Last Admin: 01/15/19 11:59 Dose: 5,000 units Hydralazine HCl (Apresoline) 10 mg PO QID [facility] Last Admin: 01/15/19 21:44 Dose: 10 mg Sodium Chloride (Sodium Chloride 0.45%) 500 mls @ 50 mls/hr IV .Q10H [facility] Last Admin: 01/16/19 05:09 Dose: Not Given Insulin Glargine (Lantus) 15 unit SC DAILY [facility] Last Admin: 01/16/19 09:53 Dose: Not Given Insulin Human Regular (Novolin R) 0 unit SC [facility]; Protocol Last Admin: 01/16/19 07:20 Dose: Not Given Pantoprazole Sodium (Protonix Ec Tab) 40 mg PO DAILY [facility] Last Admin: 01/16/19 10:10 Dose: 40 mg - Labs Labs: 01/16/19 06:45 01/16/19 06:45 PT 12.0 SECONDS (9.7-12.2) 01/14/19 20:40 INR 1.1 01/14/19 20:40 APTT 38.0 SECONDS (21-34) H 01/14/19 20:40 - Constitutional Appears: No Acute Distress, Chronically Ill - Head Exam Head Exam: ATRAUMATIC, NORMAL INSPECTION - Eye Exam Eye Exam: EOMI, Normal appearance - Neck Exam Neck Exam: Normal Inspection. absent: Tenderness - Respiratory Exam Respiratory Exam: Clear to Ausculation Bilateral, NORMAL BREATHING PATTERN - Cardiovascular Exam Cardiovascular Exam: REGULAR RHYTHM, +S1 - GI/Abdominal Exam GI & Abdominal Exam: Soft. absent: Tenderness - Extremities Exam Extremities Exam: Normal Inspection. absent: Tenderness - Neurological Exam Neurological Exam: Awake, CN II-XII Intact - Skin Skin Exam: Dry, Warm Assessment and Plan (1) Chronic kidney disease, stage V Status: Acute (2) Type 2 diabetes mellitus with diabetic nephropathy Status: Acute (3) Hypertensive chronic kidney disease with stage 5 chronic kidney disease or end stage renal disease Status: Acute (4) ESRD (end stage renal disease) Status: Acute - Assessment and Plan (Free Text) Plan: dialysis post cath- 3X weekly 4K dialysate bath EPO IV Fe phos binders better BP control
[2019-01-16] MEDS ORDERED: Lactated Ringer's 1,000 ML IV ONE (12:05)
[2019-01-16] MEDS: ceFAZolin 1 gm in NS 2 GM/200 ML BAG IVPB ONE ×2 (12:10→12:34)
[2019-01-16] MEDS ORDERED: Lidocaine Hydrochloride 0 ML INJ ONE (12:11)
[2019-01-16] MEDS: LIDOCAINE 2% PF (2ML) ONE ×2 (12:12→12:34)
--- NOTE | 2019-01-16 12:47 | PCM.SURG1 ---
Surgeon's Initial Post Op Note - Surgeon's Notes Surgeon: kenneth Control Room Agent: 0 Type of Anesthesia: IV Sedation Anesthesia Administered By: darwin Pre-Operative Diagnosis: renal failure Operative Findings: cath to svc right jugular Post-Operative Diagnosis: same Operation Performed: permacath via right jugular Specimen/Specimens Removed: 0 Estimated Blood Loss: EBL {In ML}: 5 Blood Products Given: N/A Drains Used: No Drains Post-Op Condition: Good Date of Surgery/Procedure: 01/16/19 Time of Surgery/Procedure: 12:47
--- NOTE | 2019-01-16 12:58 | VASCLAB ---
Date of service: 01/15/2019 PROCEDURE: Lower Extremity Venous Duplex Exam. HISTORY: DVT PRIORS: None. TECHNIQUE: Bilateral common femoral, femoral, popliteal and posterior tibial, peroneal and great saphenous veins were evaluated. Flow was assessed with color Doppler, compressibility, assessment of phasic flow and augmentation response. Report prepared by MONSE Agee, RVT FINDINGS: RIGHT: 1. Common Femoral Vein: 1.1. Compressibility - Fully compressible: Thrombus - None : Flow - Phasic: Augmentation -Normal: Reflux - None. 2. Femoral Vein: 2.1. Compressibility - Fully compressible: Thrombus - None : Flow - Phasic: Augmentation -Normal: Reflux - None. 3. Popliteal Vein: 3.1. Compressibility - Fully compressible: Thrombus - None : Flow - Phasic: Augmentation -Normal: Reflux - None. 4. Posterior Tibial Vein: 4.1. Compressibility - Fully compressible: Thrombus - None: Flow - Phasic: Augmentation -Normal: Reflux - None. 5. Peroneal Vein: 5.1. Compressibility - Fully compressible: Thrombus - None: Flow - Phasic: Augmentation -Normal: Reflux - None. 6. Great Saphenous Vein: 6.1. Compressibility - Fully compressible: Thrombus - None: Flow - Phasic: Augmentation - Normal: Reflux - Severe >4.74s LEFT: 1. Common Femoral Vein: 1.1. Compressibility - Fully compressible: Thrombus - None: Flow - Phasic: Augmentation -Normal: Reflux - None. 2. Femoral Vein: 2.1. Compressibility - Fully compressible: Thrombus - None: Flow - Phasic: Augmentation -Normal: Reflux - None. 3. Popliteal Vein: 3.1. Compressibility - Fully compressible: Thrombus - None : Flow - Phasic: Augmentation -Normal: Reflux - None. 4. Posterior Tibial Vein: 4.1. Compressibility - Fully compressible: Thrombus - None: Flow - Phasic: Augmentation -Normal: Reflux - None. 5. Peroneal Vein: 5.1. Compressibility - Fully compressible: Thrombus - None: Flow - Phasic: Augmentation -Normal: Reflux - None. 6. Great Saphenous Vein: 6.1. Compressibility - Fully compressible: Thrombus - None: Flow - Phasic: Augmentation - Normal: Reflux - None. OTHER FINDINGS: None significant. IMPRESSION: Right: No evidence of deep vein thrombosis or venous obstruction in the right lower extremity. Severe valvular incompetence noted of the right great saphenous vein. Left: No evidence of deep or superficial vein thrombosis of the left lower extremity. Normal valve function noted of the left side.
--- NOTE | 2019-01-16 13:57 | RAD ---
Date of service: 01/16/2019 HISTORY: permacath placement COMPARISON: 01/14/2019 FINDINGS: Right-sided dual-lumen dialysis catheter terminates in the right atrium. LUNGS: The lungs are well inflated and clear. PLEURA: No pleural effusions or pneumothorax. CARDIOVASCULAR: The heart is normal in size. No aortic atherosclerotic calcifications present. OSSEOUS STRUCTURES: Within normal limits for the patient's age. VISUALIZED UPPER ABDOMEN: Normal. OTHER FINDINGS: None. IMPRESSION: Right-sided dialysis catheter terminates in the right atrium. No acute findings.
[2019-01-16 14:47] LABS: URINE CREATININE 45.4 mg/dL
[2019-01-16 15:08] LABS: URINE 24 HOUR TOTAL PROTEIN 20562.8 {null, mg/24hr} (42-225)
[2019-01-16] MEDS: Epoetin Alfa 10,000 unit/ml Dialysis IV SCH (17:35)
[2019-01-16] MEDS: Ferric Sodium Gluconat Complex 62.5 mg/5 ml Vial IVPB SCH (18:30)
--- NOTE | 2019-01-16 21:19 | CP.PCM.PN ---
Subjective - Date & Time of Evaluation Date of Evaluation: 01/16/19 Time of Evaluation: 21:17 - Subjective Subjective: Patient today seen by editor news, vascular surgery, senior stereo compiler team lead and cardiology. Patient received a permacath on the right side of the neck. Also patient had hemodialysis today. During the hemodialysis 500 mL fluid removed Patient did not feel any changes. He is feeling okay. He has no chest pain. No shortness of breath. No leg swelling Vital signs are stable. Chest good air entry bilaterally Regular regular heart sounds Currently receiving intravenous iron infusion Patient's labs reviewed I spoke with principal librarian. Possible angiogram may be needed. We will continue the current supportive treatment. Glucose control. Patient is a 58-year-old male with a history of diabetes. Diabetic related complication. Diabetic nephropathy. Nephrotic syndrome. Renal insufficiency acute on chronic. Electrolyte imbalance. Hypertension. Spoke with the patient in detail as well as patient's family regarding the further management. We will continue the antihypertensives glucose control DVT prophylaxis and will follow the patient Objective - Vital Signs/Intake and Output Vital Signs (last 24 hours): Temp Pulse Resp BP Pulse Ox 98.4 F 89 20 139/73 95 01/16/19 20:45 01/16/19 20:45 01/16/19 20:45 01/16/19 20:45 01/16/19 20:45 - Medications Medications: Current Medications Amlodipine Besylate (Norvasc) 10 mg PO DAILY [facility] Last Admin: 01/16/19 17:33 Dose: 10 mg Calcium Acetate (Phoslo) 667 mg PO TIDCC [facility] Last Admin: 01/16/19 18:30 Dose: 667 mg Carvedilol (Coreg) 12.5 mg PO BID [facility] Last Admin: 01/16/19 17:33 Dose: 12.5 mg Epoetin Venu (Procrit) 10,000 unit IV MWF [facility] Last Admin: 01/16/19 17:35 Dose: 10,000 unit Ferric Sodium Gluconate Complex (Ferrlecit) 125 mg IVPB DAILY [facility] Stop: 01/22/19 12:31 Last Admin: 01/16/19 18:30 Dose: 125 mg Heparin Sodium (Porcine) (Heparin) 5,000 units SC Q12 [facility] Last Admin: 01/15/19 11:59 Dose: 5,000 units Hydralazine HCl (Apresoline) 10 mg PO QID [facility] Last Admin: 01/16/19 18:39 Dose: 10 mg Insulin Glargine (Lantus) 15 unit SC DAILY [facility] Last Admin: 01/16/19 09:53 Dose: Not Given Insulin Human Regular (Novolin R) 0 unit SC ACHS [facility]; Protocol Last Admin: 01/16/19 18:29 Dose: 3 u Pantoprazole Sodium (Protonix Ec Tab) 40 mg PO DAILY [facility] Last Admin: 01/16/19 10:10 Dose: 40 mg - Labs Labs: 01/16/19 06:45 01/16/19 14:28 PT 12.0 SECONDS (9.7-12.2) 01/14/19 20:40 INR 1.1 01/14/19 20:40 APTT 38.0 SECONDS (21-34) H 01/14/19 20:40
--- NOTE | 2019-01-16 21:54 | CP.PCM.CON ---
History of Present Illness - History of Present Illness History of Present Illness: The patient presents to the ED after being sent from his PMD's office for evaluation of abnormal labs noted today. Patient underwent blood work this morning and was found to have low hemoglobin and potassium levels. Patient denies chest pain, nausea, vomiting, diarrhea, and black/tarry stools. Chief Complaint (Nursing): Abnormal Labs History Per: Patient History/Exam Limitations: no limitations Onset/Duration Of Symptoms: Hrs Current Symptoms Are (Timing): Still Present Additional History Per: Patient Primary Care Provider: Logan Aguirre - Medical History PMH: HTN Surgical History: Cholecystectomy Family History: States: Unknown Family Hx - Social History Hx Alcohol Use: No Hx Substance Use: No - Immunization History Hx Tetanus Toxoid Vaccination: No Hx Influenza Vaccination: No Hx Pneumococcal Vaccination: No Review Of Systems Constitutional: Positive for: Other (abnornal labs: low hemoglobin and potassium ). Negative for: Fever, Chills Cardiovascular: Negative for: Chest Pain, Palpitations Respiratory: Negative for: Cough, Shortness of Breath Gastrointestinal: Negative for: Nausea, Vomiting, Diarrhea, Hematochezia Genitourinary: Negative for: Dysuria, Frequency, Hematuria Musculoskeletal: Negative for: Back Pain Skin: Negative for: Rash, Lesions, Jaundice, Bruising Neurological: Negative for: Weakness, Numbness Physical Exam - Physical Exam Appears: Non-toxic, No Acute Distress Skin: Warm, Dry, Pale (slight) Head: Normacephalic Oral Mucosa: Moist Neck: Supple Chest: Symmetrical, No Deformity, No Tenderness Cardiovascular: Rhythm Regular, No Murmur Respiratory: No Rales, No Rhonchi, No Wheezing Extremity: Normal ROM Neurological/Psych: Oriented x3 Past Patient History - Infectious Disease Hx of Infectious Diseases: None - Past Medical History & Family History Past Medical History?: Yes Past Family History: Reviewed and not pertinent - Past Social History Smoking Status: Never Smoked Chewing Tobacco Use: No Cigar Use: No Alcohol: None Drugs: Denies Home Situation {Lives}: With Family - CARDIAC Hx Hypertension: Yes - PULMONARY Hx Respiratory Disorders: No - NEUROLOGICAL Hx Neurological Disorder: No - RENAL Hx Chronic Kidney Disease: Yes - ENDOCRINE/METABOLIC Hx Endocrine Disorders: Yes Hx Diabetes Mellitus Type 1: Yes - HEMATOLOGICAL/ONCOLOGICAL Hx Blood Disorders: No - INTEGUMENTARY Hx Dermatological Problems: No - MUSCULOSKELETAL/RHEUMATOLOGICAL Hx Falls: No - GASTROINTESTINAL Hx Gastrointestinal Disorders: No - GENITOURINARY/GYNECOLOGICAL Hx Genitourinary Disorders: No - PSYCHIATRIC Hx Substance Use: No - SURGICAL HISTORY Hx Cholecystectomy: Yes - ANESTHESIA Hx Anesthesia: Yes Hx Anesthesia Reactions: No Meds Allergies/Adverse Reactions: Allergies Allergy/AdvReac Type Severity Reaction Status Date / Time No Known Allergies Allergy Verified 01/14/19 20:14 - Medications Medications: Current Medications Amlodipine Besylate (Norvasc) 10 mg PO DAILY [facility] Last Admin: 01/16/19 17:33 Dose: 10 mg Calcium Acetate (Phoslo) 667 mg PO TIDCC [facility] Last Admin: 01/16/19 18:30 Dose: 667 mg Carvedilol (Coreg) 12.5 mg PO BID [facility] Last Admin: 01/16/19 17:33 Dose: 12.5 mg Epoetin Venu (Procrit) 10,000 unit IV MWF [facility] Last Admin: 01/16/19 17:35 Dose: 10,000 unit Ferric Sodium Gluconate Complex (Ferrlecit) 125 mg IVPB DAILY [facility] Stop: 01/22/19 12:31 Last Admin: 01/16/19 18:30 Dose: 125 mg Heparin Sodium (Porcine) (Heparin) 5,000 units SC Q12 [facility] Last Admin: 01/16/19 21:43 Dose: 5,000 units Hydralazine HCl (Apresoline) 10 mg PO QID [facility] Last Admin: 01/16/19 21:43 Dose: 10 mg Insulin Glargine (Lantus) 15 unit SC DAILY [facility] Last Admin: 01/16/19 09:53 Dose: Not Given Insulin Human Regular (Novolin R) 0 unit SC [facility]; Protocol Last Admin: 01/16/19 21:26 Dose: Not Given Pantoprazole Sodium (Protonix Ec Tab) 40 mg PO DAILY [facility] Last Admin: 01/16/19 10:10 Dose: 40 mg Results - Vital Signs Recent Vital Signs: Last Vital Signs Temp 98.4 F 01/16/19 20:45 Pulse 89 01/16/19 20:45 Resp 20 01/16/19 20:45 BP 139/73 01/16/19 20:45 Pulse Ox 95 01/16/19 20:45 - Labs Result Diagrams: 01/16/19 06:45 01/16/19 14:28 Labs: Laboratory Results - last 24 hr 01/14/19 01/15/19 01/15/19 20:40 06:44 13:44 WBC RBC Hgb Hct MCV MCH MCHC RDW Plt Count MPV Sodium Potassium Chloride Carbon Dioxide Anion Gap BUN Creatinine Est GFR ( Amer) Est GFR (Non-Af Amer) POC Glucose (mg/dL) Random Glucose Calcium Total Bilirubin AST ALT Alkaline Phosphatase Total Protein Total Protein (PEP) 5.7 L Albumin Albumin (PEP) 2.6 L Globulin Albumin/Globulin Ratio Xwdda-4-Yustdgjwv 0.4 H Wvlju-0-Ojkznzwfh 0.9 Xrdu-7-Cbfmnwpp 0.4 Jtid-0-Cdrmduay 0.4 Gamma Globulins 1.0 Abnorm Protein Band 1 TEST NOT PERFORMED Abnorm Protein Band 2 TEST NOT PERFORMED Abnorm Protein Band 3 TEST NOT PERFORMED PTH Intact Whole Molec 483 H Urine Collection Time Urine Total Volume Ur Creatinine 24 Hour Creatinine Clearance Ur Protein 24 Hr Calc VIC & SPEP Interp See note Blood Type A NEGATIVE Blood Type Confirm A NEGATIVE Antibody Screen Negative 01/16/19 01/16/19 01/16/19 06:23 06:45 06:45 WBC 6.8 RBC 2.94 L Hgb 8.9 L Hct 26.1 L MCV 88.8 MCH 30.4 MCHC 34.2 RDW 12.9 Plt Count 268 MPV 7.9 Sodium 135 Potassium 3.0 L Chloride 101 Carbon Dioxide 20 L Anion Gap 18 BUN 83 H Creatinine 8.7 H* Est GFR ( Amer) 8 Est GFR (Non-Af Amer) 6 POC Glucose (mg/dL) 261 H Random Glucose 243 H D Calcium 7.4 L Total Bilirubin 0.3 AST 36 ALT 71 Alkaline Phosphatase 91 Total Protein 6.6 Total Protein (PEP) Albumin 3.4 L Albumin (PEP) Globulin 3.3 Albumin/Globulin Ratio 1.0 Suhns-2-Hdjzikttt Mpopw-1-Jcnxtjokf Kcrp-5-Abnedqcd Ejuf-9-Jercgoqa Gamma Globulins Abnorm Protein Band 1 Abnorm Protein Band 2 Abnorm Protein Band 3 PTH Intact Whole Molec Urine Collection Time Urine Total Volume Ur Creatinine 24 Hour Creatinine Clearance Ur Protein 24 Hr Calc VIC & SPEP Interp Blood Type Blood Type Confirm Antibody Screen 01/16/19 01/16/19 01/16/19 11:09 13:09 14:28 WBC RBC Hgb Hct MCV MCH MCHC RDW Plt Count MPV Sodium Potassium Chloride Carbon Dioxide Anion Gap BUN Creatinine 8.7 H* Est GFR ( Amer) Est GFR (Non-Af Amer) POC Glucose (mg/dL) 193 H 171 H Random Glucose Calcium Total Bilirubin AST ALT Alkaline Phosphatase Total Protein Total Protein (PEP) Albumin Albumin (PEP) Globulin Albumin/Globulin Ratio Zoaiu-2-Yvbrrbmqv Qvhuj-3-Cjuexwurb Tzzq-7-Wrasntig Kvxz-4-Bojkoggh Gamma Globulins Abnorm Protein Band 1 Abnorm Protein Band 2 Abnorm Protein Band 3 PTH Intact Whole Molec Urine Collection Time 24 Urine Total Volume 2925 Ur Creatinine 24 Hour 1328.0 Creatinine Clearance 10.0 L Ur Protein 24 Hr Calc 52616.8 H VIC & SPEP Interp Blood Type Blood Type Confirm Antibody Screen 01/16/19 16:41 WBC RBC Hgb Hct MCV MCH MCHC RDW Plt Count MPV Sodium Potassium Chloride Carbon Dioxide Anion Gap BUN Creatinine Est GFR ( Amer) Est GFR (Non-Af Amer) POC Glucose (mg/dL) 208 H Random Glucose Calcium Total Bilirubin AST ALT Alkaline Phosphatase Total Protein Total Protein (PEP) Albumin Albumin (PEP) Globulin Albumin/Globulin Ratio Sqbau-4-Ostkjpurc Htboz-2-Rdklosyto Ctds-2-Euhplepf Vxks-4-Gouljoec Gamma Globulins Abnorm Protein Band 1 Abnorm Protein Band 2 Abnorm Protein Band 3 PTH Intact Whole Molec Urine Collection Time Urine Total Volume Ur Creatinine 24 Hour Creatinine Clearance Ur Protein 24 Hr Calc VIC & SPEP Interp Blood Type Blood Type Confirm Antibody Screen Assessment & Plan - Assessment and Plan (Free Text) Assessment: Patient is a 58-year-old male with a history of diabetes. Diabetic related complication. Diabetic nephropathy. Nephrotic syndrome. Renal insufficiency acute on chronic. Electrolyte imbalance. Hypertension. NonSTMI Cardiac cath Saturday
--- NOTE | 2019-01-16 22:35 | OP ---
PROCEDURE DATE: 01/16/2019 PREOPERATIVE DIAGNOSIS: Renal failure. POSTOPERATIVE DIAGNOSIS: Renal failure. PROCEDURE: PermCath in the right jugular vein with C-arm fluoroscopy, ultrasound-guided puncture, and micropuncture technique. SURGEON: Anoop Woo Jr, MD DIRECTOR OF ACQUISITIONS: None. ANESTHESIOLOGIST: . ESTIMATED BLOOD LOSS: 5 mL. INDICATIONS: The patient is a 58-year-old [place] man, recently admitted with renal failure and now requiring dialysis. OPERATIVE FINDINGS: Catheter was inserted uneventfully into the right jugular vein. DESCRIPTION OF PROCEDURE: The patient was given local anesthesia. Using ultrasound guidance and micropuncture technique, the right jugular vein was punctured. Under fluoroscopic control, a guidewire and a small sheath dilator were then passed centrally. This was exchanged for an 0.035 wire and then the catheter was delivered with the tip in the superior vena cava and right atrial junction, drooped down on the right chest wall. It originated on the right chest wall, went through the jugular vein and terminated in the superior vena cava. It was secured to the skin. Blood loss for the procedure was 5 mL. OPERATION CARRIED OUT: PermCath in the right jugular vein. Ultrasound images of the neck showed that the vein was approximately 12 mm in diameter with normal compressibility and no intraluminal thrombosis. Anoop Woo Jr., MD
[2019-01-17 07:01] LABS: ALBUMIN 3.3 g/dL (3.5-5.0); CALCIUM 8.4 mg/dl (8.6-10.4)
[2019-01-17 07:35] LABS: HEMOGLOBIN 9.5 g/dL (12.0-18.0); MEAN CELL VOLUME 89.4 fL (80.0-94.0); MEAN CORPUSCULAR HEMOGLOBIN 32.1 pg (27.0-31.0); MEAN PLATELET VOLUME 7.9 fL (7.2-11.7); RBC 2.95 Mil/uL (4.40-5.90); RED CELL DISTRIBUTION WIDTH 13.1 % (11.5-14.5); WHITE BLOOD COUNT 6.5 K/uL (4.8-10.8)
[2019-01-17] MEDS: (Novolin R) Insulin Human Regular 100 units/ml vial SC SCH ×4 (08:12→21:46)
[2019-01-17] MEDS: Ferric Sodium Gluconat Complex 62.5 mg/5 ml Vial IVPB SCH (09:34)
[2019-01-17] MEDS: (Lantus) Insulin Glargine, Recombinant SC SCH ×2 (09:34→22:53)
[2019-01-17] MEDS: Pantoprazole 40 mg EC Tab PO SCH (09:35)
--- NOTE | 2019-01-17 09:43 | CP.PCM.PN ---
Subjective - Date & Time of Evaluation Date of Evaluation: 01/17/19 Time of Evaluation: 09:41 - Subjective Subjective: post first dialysis 01/16- tolerated well; UF- 500ml feels better PTH elevated HTN controlled Objective - Vital Signs/Intake and Output Vital Signs (last 24 hours): Temp Pulse Resp BP Pulse Ox 97.7 F 101 H 20 143/88 96 01/17/19 08:23 01/17/19 08:23 01/17/19 08:23 01/17/19 09:35 01/17/19 08:23 - Medications Medications: Current Medications Amlodipine Besylate (Norvasc) 10 mg PO DAILY [facility] Last Admin: 01/17/19 09:35 Dose: 10 mg Calcium Acetate (Phoslo) 667 mg PO TIDCC [facility] Last Admin: 01/17/19 08:12 Dose: 667 mg Carvedilol (Coreg) 12.5 mg PO BID [facility] Last Admin: 01/17/19 09:35 Dose: 12.5 mg Epoetin Venu (Procrit) 10,000 unit IV MWF [facility] Last Admin: 01/16/19 17:35 Dose: 10,000 unit Ferric Sodium Gluconate Complex (Ferrlecit) 125 mg IVPB DAILY [facility] Stop: 01/22/19 12:31 Last Admin: 01/17/19 09:34 Dose: 125 mg Heparin Sodium (Porcine) (Heparin) 5,000 units SC Q12 [facility] Last Admin: 01/17/19 09:32 Dose: 5,000 units Hydralazine HCl (Apresoline) 10 mg PO QID [facility] Last Admin: 01/17/19 09:35 Dose: 10 mg Insulin Glargine (Lantus) 15 unit SC DAILY [facility] Last Admin: 01/17/19 09:34 Dose: 15 u Insulin Human Regular (Novolin R) 0 unit SC ACHS [facility]; Protocol Last Admin: 01/17/19 08:12 Dose: 4 u Pantoprazole Sodium (Protonix Ec Tab) 40 mg PO DAILY [facility] Last Admin: 01/17/19 09:35 Dose: 40 mg - Labs Labs: 01/17/19 06:36 01/17/19 06:36 PT 12.0 SECONDS (9.7-12.2) 01/14/19 20:40 INR 1.1 01/14/19 20:40 APTT 38.0 SECONDS (21-34) H 01/14/19 20:40 - Constitutional Appears: No Acute Distress, Chronically Ill - Head Exam Head Exam: ATRAUMATIC, NORMAL INSPECTION - Eye Exam Eye Exam: EOMI, Normal appearance - Neck Exam Neck Exam: Normal Inspection. absent: Tenderness - Respiratory Exam Respiratory Exam: Clear to Ausculation Bilateral, NORMAL BREATHING PATTERN - Cardiovascular Exam Cardiovascular Exam: REGULAR RHYTHM, +S1 - GI/Abdominal Exam GI & Abdominal Exam: Soft. absent: Tenderness - Extremities Exam Extremities Exam: Normal Inspection. absent: Tenderness - Neurological Exam Neurological Exam: Awake, CN II-XII Intact - Skin Skin Exam: Dry, Warm Assessment and Plan (1) Chronic kidney disease, stage V Status: Acute (2) Type 2 diabetes mellitus with diabetic nephropathy Status: Acute (3) Hypertensive chronic kidney disease with stage 5 chronic kidney disease or end stage renal disease Status: Acute (4) ESRD (end stage renal disease) Status: Acute - Assessment and Plan (Free Text) Plan: repeat dialysis today then MWF add calcitriol continue ESAs, IV Fe will need LAURY eventual HD placememt
--- NOTE | 2019-01-17 10:51 | CP.PCM.PN ---
Subjective - Date & Time of Evaluation Date of Evaluation: 01/17/19 Time of Evaluation: 10:48 - Subjective Subjective: Patient denies having nausea, vomiting, abdominal pain. He had a formed bowel movement this morning. Objective - Vital Signs/Intake and Output Vital Signs (last 24 hours): Temp Pulse Resp BP Pulse Ox 97.7 F 101 H 20 143/88 96 01/17/19 08:23 01/17/19 08:23 01/17/19 08:23 01/17/19 09:35 01/17/19 08:23 - Medications Medications: Current Medications Amlodipine Besylate (Norvasc) 10 mg PO DAILY [facility] Last Admin: 01/17/19 09:35 Dose: 10 mg Calcitriol (Rocaltrol) 0.25 mcg PO DAILY [facility] Last Admin: 01/17/19 10:44 Dose: 0.25 mcg Calcium Acetate (Phoslo) 667 mg PO TIDCC [facility] Last Admin: 01/17/19 08:12 Dose: 667 mg Carvedilol (Coreg) 12.5 mg PO BID [facility] Last Admin: 01/17/19 09:35 Dose: 12.5 mg Epoetin Venu (Procrit) 10,000 unit IV MWF [facility] Last Admin: 01/16/19 17:35 Dose: 10,000 unit Ferric Sodium Gluconate Complex (Ferrlecit) 125 mg IVPB DAILY [facility] Stop: 01/22/19 12:31 Last Admin: 01/17/19 09:34 Dose: 125 mg Heparin Sodium (Porcine) (Heparin) 5,000 units SC Q12 [facility] Last Admin: 01/17/19 09:32 Dose: 5,000 units Hydralazine HCl (Apresoline) 10 mg PO QID [facility] Last Admin: 01/17/19 09:35 Dose: 10 mg Insulin Glargine (Lantus) 15 unit SC DAILY [facility] Last Admin: 01/17/19 09:34 Dose: 15 u Insulin Human Regular (Novolin R) 0 unit SC ACHS [facility]; Protocol Last Admin: 01/17/19 08:12 Dose: 4 u Pantoprazole Sodium (Protonix Ec Tab) 40 mg PO DAILY [facility] Last Admin: 01/17/19 09:35 Dose: 40 mg - Labs Labs: 01/17/19 06:36 01/17/19 06:36 PT 12.0 SECONDS (9.7-12.2) 01/14/19 20:40 INR 1.1 01/14/19 20:40 APTT 38.0 SECONDS (21-34) H 01/14/19 20:40 - Constitutional Appears: No Acute Distress - Head Exam Head Exam: ATRAUMATIC, NORMOCEPHALIC - Eye Exam Eye Exam: EOMI, PERRL - Neck Exam Neck Exam: absent: Lymphadenopathy, Thyromegaly - Respiratory Exam Respiratory Exam: NORMAL BREATHING PATTERN. absent: Rales, Rhonchi, Wheezes - Cardiovascular Exam Cardiovascular Exam: REGULAR RHYTHM, +S1, +S2. absent: Gallop, Rubs, Murmur - GI/Abdominal Exam GI & Abdominal Exam: Soft, Normal Bowel Sounds. absent: Tenderness, Mass, Organomegaly - Rectal Exam Rectal Exam: Deferred - Extremities Exam Extremities Exam: absent: Calf Tenderness, Pedal Edema Assessment and Plan (1) OB + stool Assessment & Plan: Patient has not had any overt bleeding. Hemoglobin is stable at 9.5. Plan is for colonoscopy, possible EGD; may be done as an outpatient. Status: Acute
--- NOTE | 2019-01-17 14:24 | CARD ---
APPROVED REPORT Date of service: 01/15/2019 EKG Measurement Heart [id number] <Conclusion> Normal sinus rhythm Nonspecific ST and T wave abnormality Prolonged QT Abnormal ECG
--- NOTE | 2019-01-17 19:53 | CP.PCM.PN ---
Subjective - Date & Time of Evaluation Date of Evaluation: 01/17/19 Time of Evaluation: 19:53 - Subjective Subjective: Patient had his a second hemodialysis today. He is feeling well. He did not have any new symptoms. He is feeling as usual. He has no leg swelling no. He is eating well, no chest pain, no shortness of breath noted. left arm will be used for AV fistula. Patient has a right internal jugular vein hemodialysis catheter. On examination: Today vital signs are stable. Blood pressure is controlled well than before. Heart rate is also better. He is still making good urine output. Chest bilateral good air entry regular heart sounds, nontender abdomen, no pedal edema. Today labs reviewed Nonspecific. Hemoglobin is 9.5 BUN is 38 creatinine is 5.7 blood sugar is varying Assessment and recommendation: Patient is a 58-year-old male with a history of renal disease diabetes hypertension high cholesterol. Patient has a diabetic nephropathy with significant proteinuria nephrotic syndrome. With worsening acute on chronic renal failure with hyperkalemia hypokalemia and also uremia. I adjusted the Lantus. Added Januvia and Glucotrol. Added Cozaar 25 mg daily Reduce hydralazine 10 mg 3 times daily Monitor the labs closely. On iron supplementation, EP and will follow the patient Objective - Vital Signs/Intake and Output Vital Signs (last 24 hours): Temp Pulse Resp BP Pulse Ox 97.7 F 90 16 140/84 97 01/17/19 16:55 01/17/19 16:55 01/17/19 16:55 01/17/19 17:37 01/17/19 16:55 Intake and Output: 01/17/19 01/18/19 18:59 06:59 Intake Total 430 Balance 430 - Medications Medications: Current Medications Amlodipine Besylate (Norvasc) 10 mg PO DAILY [facility] Last Admin: 01/17/19 09:35 Dose: 10 mg Calcitriol (Rocaltrol) 0.25 mcg PO DAILY [facility] Last Admin: 01/17/19 10:44 Dose: 0.25 mcg Calcium Acetate (Phoslo) 667 mg PO TIDCC [facility] Last Admin: 01/17/19 17:37 Dose: 667 mg Carvedilol (Coreg) 12.5 mg PO BID [facility] Last Admin: 01/17/19 17:37 Dose: 12.5 mg Epoetin Venu (Procrit) 10,000 unit IV MWF [facility] Last Admin: 01/16/19 17:35 Dose: 10,000 unit Ferric Sodium Gluconate Complex (Ferrlecit) 125 mg IVPB DAILY [facility] Stop: 01/22/19 12:31 Last Admin: 01/17/19 09:34 Dose: 125 mg Heparin Sodium (Porcine) (Heparin) 5,000 units SC Q12 [facility] Last Admin: 01/17/19 09:32 Dose: 5,000 units Hydralazine HCl (Apresoline) 10 mg PO QID [facility] Last Admin: 01/17/19 17:37 Dose: 10 mg Insulin Glargine (Lantus) 15 unit SC DAILY [facility] Last Admin: 01/17/19 09:34 Dose: 15 u Insulin Human Regular (Novolin R) 0 unit SC ACHS [facility]; Protocol Last Admin: 01/17/19 18:11 Dose: Not Given Pantoprazole Sodium (Protonix Ec Tab) 40 mg PO DAILY [facility] Last Admin: 01/17/19 09:35 Dose: 40 mg - Labs Labs: 01/17/19 06:36 01/17/19 06:36 PT 12.0 SECONDS (9.7-12.2) 01/14/19 20:40 INR 1.1 01/14/19 20:40 APTT 38.0 SECONDS (21-34) H 01/14/19 20:40
[2019-01-18] MEDS: (Novolin R) Insulin Human Regular 100 units/ml vial SC SCH ×4 (08:24→21:18)
[2019-01-18] MEDS: Ferric Sodium Gluconat Complex 62.5 mg/5 ml Vial IVPB SCH (09:37)
[2019-01-18] MEDS: Pantoprazole 40 mg EC Tab PO SCH (09:38)
[2019-01-18] MEDS: (Lantus) Insulin Glargine, Recombinant SC SCH (21:18)
--- NOTE | 2019-01-18 23:32 | CP.PCM.PN ---
Subjective - Date & Time of Evaluation Date of Evaluation: 01/18/19 Time of Evaluation: 18:40 - Subjective Subjective: Patient seen and evaluated Abnormal Trop For Cath Saturday Objective - Vital Signs/Intake and Output Vital Signs (last 24 hours): Temp Pulse Resp BP Pulse Ox 98.1 F 93 H 20 140/90 96 01/18/19 09:00 01/18/19 09:00 01/18/19 09:00 01/18/19 21:27 01/18/19 09:00 - Medications Medications: Current Medications Amlodipine Besylate (Norvasc) 10 mg PO DAILY [facility] Last Admin: 01/18/19 09:40 Dose: 10 mg Calcitriol (Rocaltrol) 0.25 mcg PO DAILY [facility] Last Admin: 01/18/19 09:39 Dose: 0.25 mcg Calcium Acetate (Phoslo) 667 mg PO TIDCC [facility] Last Admin: 01/18/19 17:34 Dose: 667 mg Carvedilol (Coreg) 6.25 mg PO BID [facility] Last Admin: 01/18/19 17:34 Dose: 6.25 mg Epoetin Venu (Procrit) 10,000 unit IV MWF [facility] Last Admin: 01/16/19 17:35 Dose: 10,000 unit Ferric Sodium Gluconate Complex (Ferrlecit) 125 mg IVPB DAILY [facility] Stop: 01/22/19 12:31 Last Admin: 01/18/19 09:37 Dose: 125 mg Glipizide (Glucotrol) 5 mg PO ACB [facility] Last Admin: 01/18/19 08:24 Dose: 5 mg Heparin Sodium (Porcine) (Heparin) 5,000 units SC Q12 [facility] Last Admin: 01/18/19 21:25 Dose: 5,000 units Hydralazine HCl (Apresoline) 10 mg PO Q8 [facility] Last Admin: 01/18/19 21:25 Dose: 10 mg Insulin Glargine (Lantus) 20 unit SC HS [facility] Last Admin: 01/18/19 21:18 Dose: Not Given Insulin Human Regular (Novolin R) 0 unit SC ACHS [facility]; Protocol Last Admin: 01/18/19 21:18 Dose: Not Given Losartan Potassium (Cozaar) 25 mg PO DAILY [facility] Last Admin: 01/18/19 09:39 Dose: 25 mg Pantoprazole Sodium (Protonix Ec Tab) 40 mg PO DAILY [facility] Last Admin: 01/18/19 09:38 Dose: 40 mg Sitagliptin Phosphate (Januvia) 25 mg PO DAILY [facility] Last Admin: 01/18/19 09:39 Dose: 25 mg - Labs Labs: 01/17/19 06:36 01/17/19 06:36 PT 12.0 SECONDS (9.7-12.2) 01/14/19 20:40 INR 1.1 01/14/19 20:40 APTT 38.0 SECONDS (21-34) H 01/14/19 20:40
--- NOTE | 2019-01-18 23:32 | CP.PCM.PN ---
Subjective - Date & Time of Evaluation Date of Evaluation: 01/17/19 Time of Evaluation: 09:45 - Subjective Subjective: Patient seen and evaluated Abnormal Trop For Cath Saturday Objective - Vital Signs/Intake and Output Vital Signs (last 24 hours): Temp Pulse Resp BP Pulse Ox 98.1 F 93 H 20 140/90 96 01/18/19 09:00 01/18/19 09:00 01/18/19 09:00 01/18/19 21:27 01/18/19 09:00 - Medications Medications: Current Medications Amlodipine Besylate (Norvasc) 10 mg PO DAILY [facility] Last Admin: 01/18/19 09:40 Dose: 10 mg Calcitriol (Rocaltrol) 0.25 mcg PO DAILY [facility] Last Admin: 01/18/19 09:39 Dose: 0.25 mcg Calcium Acetate (Phoslo) 667 mg PO TIDCC [facility] Last Admin: 01/18/19 17:34 Dose: 667 mg Carvedilol (Coreg) 6.25 mg PO BID [facility] Last Admin: 01/18/19 17:34 Dose: 6.25 mg Epoetin Venu (Procrit) 10,000 unit IV MWF [facility] Last Admin: 01/16/19 17:35 Dose: 10,000 unit Ferric Sodium Gluconate Complex (Ferrlecit) 125 mg IVPB DAILY [facility] Stop: 01/22/19 12:31 Last Admin: 01/18/19 09:37 Dose: 125 mg Glipizide (Glucotrol) 5 mg PO ACB [facility] Last Admin: 01/18/19 08:24 Dose: 5 mg Heparin Sodium (Porcine) (Heparin) 5,000 units SC Q12 [facility] Last Admin: 01/18/19 21:25 Dose: 5,000 units Hydralazine HCl (Apresoline) 10 mg PO Q8 [facility] Last Admin: 01/18/19 21:25 Dose: 10 mg Insulin Glargine (Lantus) 20 unit SC HS [facility] Last Admin: 01/18/19 21:18 Dose: Not Given Insulin Human Regular (Novolin R) 0 unit SC ACHS [facility]; Protocol Last Admin: 01/18/19 21:18 Dose: Not Given Losartan Potassium (Cozaar) 25 mg PO DAILY [facility] Last Admin: 01/18/19 09:39 Dose: 25 mg Pantoprazole Sodium (Protonix Ec Tab) 40 mg PO DAILY [facility] Last Admin: 01/18/19 09:38 Dose: 40 mg Sitagliptin Phosphate (Januvia) 25 mg PO DAILY [facility] Last Admin: 01/18/19 09:39 Dose: 25 mg - Labs Labs: 01/17/19 06:36 01/17/19 06:36 PT 12.0 SECONDS (9.7-12.2) 01/14/19 20:40 INR 1.1 01/14/19 20:40 APTT 38.0 SECONDS (21-34) H 01/14/19 20:40
[2019-01-19] MEDS: (Novolin R) Insulin Human Regular 100 units/ml vial SC SCH ×4 (07:30→21:35)
--- NOTE | 2019-01-19 07:53 | CP.PCM.PN ---
Subjective - Date & Time of Evaluation Date of Evaluation: 01/19/19 Time of Evaluation: 07:52 - Subjective Subjective: Vascular surgery progress note for Dr. Mode Dawkins, PGY-2 Pt seen/examined at bedside Pt resting comfortably in bed, no complaints. Pt reports having HD via permacath without problems. Denies N & V, F & C, SOB, CP. Objective - Vital Signs/Intake and Output Vital Signs (last 24 hours): Temp Pulse Resp BP Pulse Ox 98.3 F 92 H 20 146/71 96 01/18/19 23:10 01/19/19 05:30 01/18/19 23:10 01/19/19 05:30 01/18/19 23:10 Intake and Output: 01/19/19 01/19/19 06:59 18:59 Intake Total 50 Balance 50 - Medications Medications: Current Medications Amlodipine Besylate (Norvasc) 10 mg PO DAILY [facility] Last Admin: 01/18/19 09:40 Dose: 10 mg Calcitriol (Rocaltrol) 0.25 mcg PO DAILY [facility] Last Admin: 01/18/19 09:39 Dose: 0.25 mcg Calcium Acetate (Phoslo) 667 mg PO TIDCC [facility] Last Admin: 01/18/19 17:34 Dose: 667 mg Carvedilol (Coreg) 6.25 mg PO BID [facility] Last Admin: 01/18/19 17:34 Dose: 6.25 mg Epoetin Venu (Procrit) 10,000 unit IV MWF [facility] Last Admin: 01/16/19 17:35 Dose: 10,000 unit Ferric Sodium Gluconate Complex (Ferrlecit) 125 mg IVPB DAILY [facility] Stop: 01/22/19 12:31 Last Admin: 01/18/19 09:37 Dose: 125 mg Glipizide (Glucotrol) 5 mg PO ACB [facility] Last Admin: 01/18/19 08:24 Dose: 5 mg Heparin Sodium (Porcine) (Heparin) 5,000 units SC Q12 [facility] Last Admin: 01/18/19 21:25 Dose: 5,000 units Hydralazine HCl (Apresoline) 10 mg PO Q8 [facility] Last Admin: 01/19/19 05:32 Dose: 10 mg Insulin Glargine (Lantus) 20 unit SC HS [facility] Last Admin: 01/18/19 21:18 Dose: Not Given Insulin Human Regular (Novolin R) 0 unit SC ACHS [facility]; Protocol Last Admin: 01/19/19 07:30 Dose: Not Given Losartan Potassium (Cozaar) 25 mg PO DAILY [facility] Last Admin: 01/18/19 09:39 Dose: 25 mg Pantoprazole Sodium (Protonix Ec Tab) 40 mg PO DAILY [facility] Last Admin: 01/18/19 09:38 Dose: 40 mg Sitagliptin Phosphate (Januvia) 25 mg PO DAILY [facility] Last Admin: 01/18/19 09:39 Dose: 25 mg - Labs Labs: 01/17/19 06:36 01/17/19 06:36 PT 12.0 SECONDS (9.7-12.2) 01/14/19 20:40 INR 1.1 01/14/19 20:40 APTT 38.0 SECONDS (21-34) H 01/14/19 20:40 - Constitutional Appears: Non-toxic, No Acute Distress - Head Exam Head Exam: ATRAUMATIC, NORMAL INSPECTION, NORMOCEPHALIC - Eye Exam Eye Exam: EOMI, Normal appearance - ENT Exam ENT Exam: Mucous Membranes Moist, Normal Exam - Neck Exam Neck Exam: Full ROM Additional comments: RIJ permcath in place- dressing clean/dry/intact - Respiratory Exam Respiratory Exam: NORMAL BREATHING PATTERN - Cardiovascular Exam Cardiovascular Exam: REGULAR RHYTHM, +S1, +S2 - GI/Abdominal Exam GI & Abdominal Exam: Soft. absent: Tenderness - Extremities Exam Extremities Exam: Normal Inspection - Neurological Exam Neurological Exam: Alert, Awake, CN II-XII Intact, Oriented x3 - Psychiatric Exam Psychiatric exam: Normal Affect, Normal Mood - Skin Skin Exam: Dry, Intact, Normal Color, Warm Assessment and Plan - Assessment and Plan (Free Text) Assessment: 58M w/ESRD on HD POD#3 s/p RIJ permacath placement Plan: NPO pMN LUE precautions Plan for AVF 01/20 Will Consent Hold anticoagulation Further care as per primary team Will DW Dr. Aman Dawkins, PGY-2
[2019-01-19] MEDS ORDERED: Lidocaine 2% MPF (5 ml) Inj ONE (08:37)
[2019-01-19] MEDS ORDERED: Iodixanol 320 MG/ML 200 ML BOTTLE IV ONE (08:38)
[2019-01-19] MEDS ORDERED: Midazolam 2 MG/2 ML VIAL ONE (08:38)
[2019-01-19] MEDS ORDERED: Epoetin Alfa 10,000 unit/ml Dialysis IV SCH (09:00)
--- NOTE | 2019-01-19 09:15 | VASCLAB ---
Date of service: 01/15/2019 PROCEDURE: Upper Extremity Venous Mapping HISTORY: ESRD, Vein mapping for AVF. PRIORS: None. TECHNIQUE: Bilateral upper extremity, internal jugular, subclavian, axillary, brachial, ulnar, radial, basilic and upper cephalic veins were evaluated. Flow was assessed with color Doppler, compressibility, assessment of phasic flow and augmentation response. Report prepared by ASPEN Wilkins FINDINGS: RIGHT: 1. Internal Jugular Vein: Compressibility - Fully compressible: Thrombus - None : Flow - Phasic 2. Subclavian Vein:Compressibility - Fully compressible: Thrombus - None : Flow - Phasic 3. Axillary Vein: Compressibility - Fully compressible: Thrombus - None 4. Brachial Vein: Compressibility - Fully compressible: Thrombus - None 5. Ulnar Vein:Compressibility - Fully compressible: Thrombus - None 6. Radial Vein:Compressibility - Fully compressible: Thrombus - None 7. Cephalic Vein: Compressibility - Fully compressible: thrombus - None 7.1. Upper Arm: Proximal Diameter: 0.41cm. Mid Diameter: 0.16cm. Distal Diameter: n/a 7.2. Forearm: Not visualized. 8. Basilic Vein:Compressibility - Fully compressible: thrombus - None 8.1. Upper Arm:Proximal Diameter: 0.32cm. Mid Diameter: 0.38cm. Distal Diameter: 0.20cm. 8.2. Forearm: Proximal Diameter: 0.22cm. Mid Diameter:0.22cm. Distal Diameter: 0.12cm. LEFT: 1. Internal Jugular Vein: Compressibility - Fully compressible: Thrombus - None : Flow - Phasic 2. Subclavian Vein:Compressibility - Fully compressible: Thrombus - None : Flow - Phasic 3. Axillary Vein: Compressibility - Fully compressible: Thrombus - None 4. Brachial Vein: Compressibility - Fully compressible: Thrombus - None 5. Ulnar Vein:Compressibility - Fully compressible: Thrombus - None 6. Radial Vein:Compressibility - Fully compressible: Thrombus - None 7. Cephalic Vein: Compressibility - Fully compressible: thrombus - None 7.1. Upper Arm: Proximal Diameter: 0.38cm. Mid Diameter: 0.29cm. Distal Diameter: 0.28cm. 7.2. Forearm: Proximal Diameter: 0.22cm. Mid Diameter:0.18cm. Distal Diameter: 0.21cm 8. Basilic Vein:Compressibility - Fully compressible: thrombus - None 8.1. Upper Arm:Proximal Diameter: 0.39cm. Mid Diameter: 0.39cm. Distal Diameter: 0.28cm. 8.2. Forearm: Proximal Diameter: 0.23cm. Mid Diameter:0.25cm. Distal Diameter: 0.12cm. OTHER FINDINGS: No evidence of venous thrombosis in bilateral upper extremities. IMPRESSION: Refer to the above listed measurements for vein size.
--- NOTE | 2019-01-19 09:19 | CP.PCM.PN ---
Subjective - Date & Time of Evaluation Date of Evaluation: 01/19/19 Time of Evaluation: 09:16 - Subjective Subjective: Patient s/p Cath 1. L main: patent 2. LAD: prox 80%, Mid 99% 3. L Cx/OM: patent 4. RCA: Dominant, Distal 60% 5. EF: 60%, EDP 24 Plan: 1. Critical LAD disease 2. Non STEMI 3. Multiple Cardiac risk factors ICU observation ASA, Plavix, statins, CLARA I, B blockers Heparin drip 2 days. start after 1pm today PCI of LAD at [facility] on Saturday Resume diet Objective - Vital Signs/Intake and Output Vital Signs (last 24 hours): Temp Pulse Resp BP Pulse Ox 98.3 F 92 H 20 146/71 96 01/18/19 23:10 01/19/19 05:30 01/18/19 23:10 01/19/19 05:30 01/18/19 23:10 Intake and Output: 01/19/19 01/19/19 06:59 18:59 Intake Total 50 Balance 50 - Medications Medications: Current Medications Amlodipine Besylate (Norvasc) 10 mg PO DAILY [facility] Last Admin: 01/18/19 09:40 Dose: 10 mg Calcitriol (Rocaltrol) 0.25 mcg PO DAILY [facility] Last Admin: 01/18/19 09:39 Dose: 0.25 mcg Calcium Acetate (Phoslo) 667 mg PO TIDCC [facility] Last Admin: 01/18/19 17:34 Dose: 667 mg Carvedilol (Coreg) 6.25 mg PO BID [facility] Last Admin: 01/18/19 17:34 Dose: 6.25 mg Epoetin Venu (Procrit) 10,000 unit IV MWF [facility] Last Admin: 01/16/19 17:35 Dose: 10,000 unit Ferric Sodium Gluconate Complex (Ferrlecit) 125 mg IVPB DAILY [facility] Stop: 01/22/19 12:31 Last Admin: 01/18/19 09:37 Dose: 125 mg Glipizide (Glucotrol) 5 mg PO ACB [facility] Last Admin: 01/18/19 08:24 Dose: 5 mg Heparin Sodium (Porcine) (Heparin) 5,000 units SC Q12 [facility] Last Admin: 01/18/19 21:25 Dose: 5,000 units Hydralazine HCl (Apresoline) 10 mg PO Q8 [facility] Last Admin: 01/19/19 05:32 Dose: 10 mg Insulin Glargine (Lantus) 20 unit SC HS [facility] Last Admin: 01/18/19 21:18 Dose: Not Given Insulin Human Regular (Novolin R) 0 unit SC ACHS [facility]; Protocol Last Admin: 01/19/19 07:30 Dose: Not Given Losartan Potassium (Cozaar) 25 mg PO DAILY [facility] Last Admin: 01/18/19 09:39 Dose: 25 mg Pantoprazole Sodium (Protonix Ec Tab) 40 mg PO DAILY [facility] Last Admin: 01/18/19 09:38 Dose: 40 mg Sitagliptin Phosphate (Januvia) 25 mg PO DAILY [facility] Last Admin: 01/18/19 09:39 Dose: 25 mg - Labs Labs: 01/17/19 06:36 01/17/19 06:36 PT 12.0 SECONDS (9.7-12.2) 01/14/19 20:40 INR 1.1 01/14/19 20:40 APTT 38.0 SECONDS (21-34) H 01/14/19 20:40
[2019-01-19] MEDS ORDERED: Heparin25000 units/250ml 1/2NS 25,000 UNITS/250 ML BAG IV PRN ×4 (11:28→23:23)
--- NOTE | 2019-01-19 11:46 | CP.PCM.CON ---
History of Present Illness - History of Present Illness History of Present Illness: ICU CONSULT NOTE FOR DR. CARLA MONTOYA ERICKA PGY1 58 y/o M with PMH CRI now ESRD likely 2/2 diabetic nephropathy 2/2 uncontrolled DM, newly diagnosed CAD, HTN, HLD, hyperuricemia, gout, initially presented to ED after being sent in by Dr. Aguirre after presenting to clinic with multiple lab abnormalities including Hgb 7.5, K: 2.8, Cr: 8.2. He had initial complaints of leg cramping and swelling. During hospital course, he was started on kayexalate. Pt was evaluated by nephrology and deemed to be a candidate for hemodialysis given advanced azotemia. Pt reported still making some urine. Pt was also found to have occult blood positive in stool, evaluated by GI who attributed anemia likely 2/2 CRI and recommended colonoscopy/EGD in outpatient setting. Pt was evaluated by vascular surgery and underwent permcath placement for HD access in [facility] 01/16. Pt underwent HD with 500ml fluid removed on 01/16. Pt was evaluated by cardiology for elevated troponins. He underwent cardiac cath today, 01/19, and was found to have 80% stenosis in proximal LAD, 99% stenosis in mid LAD. Patient was transferred to ICU today for monitoring of critical LAD disease with initiation of heparin drip, loading dose plavix, aspirin, statin. Pt is to be on heparin drip for 48 hours with plan for PCI [place]. Upon interview: Pt is denying complaints. He is resting comfortably in bed, awake, alert talking, protecting his airway, with no complaints of chest pain. He denies 12 point ROS PMH: CRI now ESRD likely 2/2 diabetic nephropathy, HTN, uncontrolled DM2, HLD, Hyperuricemia, gout All: NKDA PSH: cholecystectomy 2014 SH: Denies tobacco use. Occasional ETOH use Hosp: Admitted 01/14 after being sent from Dr. Aguirre's office for abnormal labs, including elevated Cr, K & lipase FH: Father: : DM, HTN. Mother: 2006. Meds: Glipizide 10mg QAM, 5mg QPM; Crestor 10mg daily, long acting insulin PMD: Dr. Aguirre Cardio: Dr. Mujica Nephro: Dr. Lu Vascular: Dr. Woo GI: Dr. Limon Review of Systems - Review of Systems Review of Systems: per HPI Past Patient History - Infectious Disease Hx of Infectious Diseases: None - Past Medical History & Family History Past Medical History?: Yes Past Family History: Reviewed and not pertinent - Past Social History Smoking Status: Never Smoked Chewing Tobacco Use: No Cigar Use: No Alcohol: None Drugs: Denies Home Situation {Lives}: With Family - CARDIAC Hx Hypertension: Yes - PULMONARY Hx Respiratory Disorders: No - NEUROLOGICAL Hx Neurological Disorder: No - RENAL Hx Chronic Kidney Disease: Yes - ENDOCRINE/METABOLIC Hx Endocrine Disorders: Yes Hx Diabetes Mellitus Type 1: Yes - HEMATOLOGICAL/ONCOLOGICAL Hx Blood Disorders: No - INTEGUMENTARY Hx Dermatological Problems: No - MUSCULOSKELETAL/RHEUMATOLOGICAL Hx Falls: No - GASTROINTESTINAL Hx Gastrointestinal Disorders: No - GENITOURINARY/GYNECOLOGICAL Hx Genitourinary Disorders: No - PSYCHIATRIC Hx Substance Use: No - SURGICAL HISTORY Hx Cholecystectomy: Yes - ANESTHESIA Hx Anesthesia: Yes Hx Anesthesia Reactions: No Meds Allergies/Adverse Reactions: Allergies Allergy/AdvReac Type Severity Reaction Status Date / Time No Known Allergies Allergy Verified 01/14/19 20:14 - Medications Medications: Current Medications Amlodipine Besylate (Norvasc) 10 mg PO DAILY [facility] Last Admin: 01/18/19 09:40 Dose: 10 mg Aspirin (Ecotrin) 81 mg PO DAILY [facility] Calcitriol (Rocaltrol) 0.25 mcg PO DAILY [facility] Last Admin: 01/18/19 09:39 Dose: 0.25 mcg Calcium Acetate (Phoslo) 667 mg PO TIDCC [facility] Last Admin: 01/19/19 10:17 Dose: Not Given Carvedilol (Coreg) 6.25 mg PO BID [facility] Last Admin: 01/18/19 17:34 Dose: 6.25 mg Clopidogrel Bisulfate (Plavix) 75 mg PO DAILY [facility] Epoetin Venu (Procrit) 10,000 unit IV MWF [facility] Last Admin: 01/16/19 17:35 Dose: 10,000 unit Famotidine (Pepcid) 20 mg PO BID [facility] Ferric Sodium Gluconate Complex (Ferrlecit) 125 mg IVPB DAILY [facility] Stop: 01/22/19 12:31 Last Admin: 01/18/19 09:37 Dose: 125 mg Glipizide (Glucotrol) 5 mg PO ACB [facility] Last Admin: 01/18/19 08:24 Dose: 5 mg Heparin Sodium (Porcine) (Heparin) 5,000 units SC Q12 [facility] Last Admin: 01/18/19 21:25 Dose: 5,000 units Hydralazine HCl (Apresoline) 10 mg PO Q8 [facility] Last Admin: 01/19/19 05:32 Dose: 10 mg Heparin Sodium/Sodium Chloride (Heparin 90724 Units/250ml 1/2 Normal Saline) 25,000 units in 250 mls @ 0 mls/hr IV .Q0M PRN; Protocol Insulin Glargine (Lantus) 20 unit SC HS [facility] Last Admin: 01/18/19 21:18 Dose: Not Given Insulin Human Regular (Novolin R) 0 unit SC ACHS [facility]; Protocol Last Admin: 01/19/19 07:30 Dose: Not Given Losartan Potassium (Cozaar) 25 mg PO DAILY [facility] Last Admin: 01/18/19 09:39 Dose: 25 mg Rosuvastatin Calcium (Crestor) 40 mg PO [facility] Sitagliptin Phosphate (Januvia) 25 mg PO DAILY [facility] Last Admin: 01/18/19 09:39 Dose: 25 mg Physical Exam - Constitutional Appears: Well, Non-toxic, No Acute Distress - Head Exam Head Exam: NORMAL INSPECTION, NORMOCEPHALIC - Eye Exam Eye Exam: EOMI, Normal appearance - ENT Exam ENT Exam: Normal Exam - Neck Exam Neck exam: Positive for: Normal Inspection - Respiratory Exam Respiratory Exam: Clear to Auscultation Bilateral, NORMAL BREATHING PATTERN - Cardiovascular Exam Cardiovascular Exam: REGULAR RHYTHM, +S1, +S2 - GI/Abdominal Exam GI & Abdominal Exam: Soft. absent: Distended - Extremities Exam Extremities exam: Positive for: normal inspection. Negative for: calf tenderness - Back Exam Back exam: NORMAL INSPECTION - Neurological Exam Neurological exam: Alert, Oriented x3 - Psychiatric Exam Psychiatric exam: Normal Affect, Normal Mood - Skin Skin Exam: Dry, Intact, Warm Results - Vital Signs Recent Vital Signs: Last Vital Signs Temp 98.3 F 01/18/19 23:10 Pulse 92 H 01/19/19 05:30 Resp 20 01/18/19 23:10 BP 146/71 01/19/19 05:30 Pulse Ox 96 01/18/19 23:10 - Labs Result Diagrams: 01/17/19 06:36 01/17/19 06:36 Labs: Laboratory Results - last 24 hr 01/18/19 20:59 POC Glucose (mg/dL) 233 H Assessment & Plan - Assessment and Plan (Free Text) Assessment: 58 y/o M with PMH CRI now ESRD likely 2/2 diabetic nephropathy 2/2 uncontrolled DM, newly diagnosed CAD, HTN, HLD, hyperuricemia, gout transferred to ICU today for monitoring of critical LAD disease with initiation of heparin drip, loading dose plavix, aspirin, statin. Pt is to be on heparin drip for 48 hours with plan for PCI [place] 01/21 Plan: Neuro: AxO x 3 GCS 15 CV NSTEMI -Currently no chest pain, SOB, diaphoresis -S/P cardiac cath 01/19 found to have 1. L main: patent 2. LAD: prox 80%, Mid 99% 3. L Cx/OM: patent 4. RCA: Dominant, Distal 60% 5. EF: 60%, EDP 24 -Start heparin gtt with bolus per NSTEMI protocol. -start loading dose plavix, aspirin, rosuvastatin 40mg, carvedilol 6.25 HTN -BP controlled in 140s/70s -c/w amlodipine 10qd, losartan 25mg qd, hydralazine 10Q8 /Renal ESRD on HD -s/p RJ permcath placement for HD initiation -c/w dialysis sessions per nephrology recs. Plan for HD today -c/w phosphate binder: phoslo -c/w calcitriol -monitor UOP Endocrine DM -BS 200's -c/w insulin glargine 20u HS, glipizide 5mg, sitagliptin 25mg qd, -c/w insulin sliding scale -maintain euglycemia <180 per NICE-SUGAR trial Heme Anemia -Hgb improved with medication mgmt -likely 2/2 CKD -c/w procrit DVT/GI PPX: heparin/pepcid Case reviewed with attending physician, Dr. Carla De La Cruz PGY1
--- NOTE | 2019-01-19 11:53 | CP.PCM.PN ---
Subjective - Date & Time of Evaluation Date of Evaluation: 01/19/19 Time of Evaluation: 11:50 - Subjective Subjective: s/p cardiac cath- CAD noted seen in ICU BP increased no SOB, CPs, nausea, vomiting Hg improved with meds Objective - Vital Signs/Intake and Output Vital Signs (last 24 hours): Temp Pulse Resp BP Pulse Ox 98.3 F 92 H 20 146/71 96 01/18/19 23:10 01/19/19 05:30 01/18/19 23:10 01/19/19 05:30 01/18/19 23:10 Intake and Output: 01/19/19 01/19/19 06:59 18:59 Intake Total 50 Balance 50 - Medications Medications: Current Medications Amlodipine Besylate (Norvasc) 10 mg PO DAILY [facility] Last Admin: 01/18/19 09:40 Dose: 10 mg Aspirin (Ecotrin) 81 mg PO DAILY [facility] Calcitriol (Rocaltrol) 0.25 mcg PO DAILY [facility] Last Admin: 01/18/19 09:39 Dose: 0.25 mcg Calcium Acetate (Phoslo) 667 mg PO TIDCC [facility] Last Admin: 01/19/19 10:17 Dose: Not Given Carvedilol (Coreg) 6.25 mg PO BID [facility] Last Admin: 01/18/19 17:34 Dose: 6.25 mg Clopidogrel Bisulfate (Plavix) 75 mg PO DAILY [facility] Epoetin Venu (Procrit) 10,000 unit IV MWF [facility] Last Admin: 01/16/19 17:35 Dose: 10,000 unit Famotidine (Pepcid) 20 mg PO BID [facility] Ferric Sodium Gluconate Complex (Ferrlecit) 125 mg IVPB DAILY [facility] Stop: 01/22/19 12:31 Last Admin: 01/18/19 09:37 Dose: 125 mg Glipizide (Glucotrol) 5 mg PO ACB [facility] Last Admin: 01/18/19 08:24 Dose: 5 mg Heparin Sodium (Porcine) (Heparin) 5,000 units SC Q12 [facility] Last Admin: 01/18/19 21:25 Dose: 5,000 units Hydralazine HCl (Apresoline) 10 mg PO Q8 [facility] Last Admin: 01/19/19 05:32 Dose: 10 mg Heparin Sodium/Sodium Chloride (Heparin 62999 Units/250ml 1/2 Normal Saline) 25,000 units in 250 mls @ 0 mls/hr IV .Q0M PRN; Protocol Insulin Glargine (Lantus) 20 unit SC HS [facility] Last Admin: 01/18/19 21:18 Dose: Not Given Insulin Human Regular (Novolin R) 0 unit SC ACHS [facility]; Protocol Last Admin: 01/19/19 07:30 Dose: Not Given Losartan Potassium (Cozaar) 25 mg PO DAILY [facility] Last Admin: 01/18/19 09:39 Dose: 25 mg Rosuvastatin Calcium (Crestor) 40 mg PO HS [facility] Sitagliptin Phosphate (Januvia) 25 mg PO DAILY [facility] Last Admin: 01/18/19 09:39 Dose: 25 mg - Labs Labs: 01/17/19 06:36 01/17/19 06:36 PT 12.0 SECONDS (9.7-12.2) 01/14/19 20:40 INR 1.1 01/14/19 20:40 APTT 38.0 SECONDS (21-34) H 01/14/19 20:40 - Constitutional Appears: No Acute Distress, Chronically Ill - Head Exam Head Exam: ATRAUMATIC, NORMAL INSPECTION - Eye Exam Eye Exam: EOMI, Normal appearance - Neck Exam Neck Exam: Normal Inspection. absent: Tenderness - Respiratory Exam Respiratory Exam: Clear to Ausculation Bilateral, NORMAL BREATHING PATTERN - Cardiovascular Exam Cardiovascular Exam: REGULAR RHYTHM, +S1 - GI/Abdominal Exam GI & Abdominal Exam: Soft. absent: Tenderness - Extremities Exam Extremities Exam: Normal Inspection. absent: Tenderness - Neurological Exam Neurological Exam: Awake, CN II-XII Intact - Skin Skin Exam: Dry, Warm Assessment and Plan (1) Chronic kidney disease, stage V Status: Acute (2) Type 2 diabetes mellitus with diabetic nephropathy Status: Acute (3) Hypertensive chronic kidney disease with stage 5 chronic kidney disease or end stage renal disease Status: Acute (4) ESRD (end stage renal disease) Status: Acute - Assessment and Plan (Free Text) Plan: dialysis now post cath transfer for LAD stent noted will eventually need AV access
[2019-01-19] MEDS ORDERED: Aspirin 325 mg EC Tablets PO STA (12:02)
[2019-01-19 13:03] LABS: PARTIAL THROMBOPLASTIN TIME 40.4 SECONDS (21-34); PROTHROMBIN TIME 10.8 SECONDS (9.7-12.2)
--- NOTE | 2019-01-19 13:25 | RAD ---
Date of service: 01/16/2019 PROCEDURE: Intraoperative Fluoroscopy. HISTORY: RENAL FAILURE FINDINGS: Fluoroscopic assistance was provided for PermCath placement. Please refer to the operative report from ANDREAS Kay.
--- NOTE | 2019-01-19 14:52 | CP.PCM.PN ---
Subjective - Date & Time of Evaluation Date of Evaluation: 01/19/19 Time of Evaluation: 14:49 - Subjective Subjective: In ICU. S/P cardiac Cath. No overt GI blood losses (Stool OB positive). Hgb stable. Now on IV heparin + Plavix Objective - Vital Signs/Intake and Output Vital Signs (last 24 hours): Temp Pulse Resp BP Pulse Ox 98.3 F 92 H 20 146/71 96 01/18/19 23:10 01/19/19 05:30 01/18/19 23:10 01/19/19 05:30 01/18/19 23:10 Intake and Output: 01/19/19 01/19/19 06:59 18:59 Intake Total 50 Balance 50 - Medications Medications: Current Medications Amlodipine Besylate (Norvasc) 10 mg PO DAILY [facility] Last Admin: 01/19/19 12:48 Dose: 10 mg Aspirin (Ecotrin) 81 mg PO DAILY [facility] Calcitriol (Rocaltrol) 0.25 mcg PO DAILY [facility] Last Admin: 01/19/19 12:48 Dose: 0.25 mcg Calcium Acetate (Phoslo) 667 mg PO TIDCC [facility] Last Admin: 01/19/19 12:48 Dose: 667 mg Carvedilol (Coreg) 6.25 mg PO BID [facility] Last Admin: 01/19/19 12:49 Dose: 6.25 mg Clopidogrel Bisulfate (Plavix) 75 mg PO DAILY [facility] Epoetin Venu (Procrit) 10,000 unit IV MWF [facility] Last Admin: 01/16/19 17:35 Dose: 10,000 unit Famotidine (Pepcid) 20 mg PO BID [facility] Ferric Sodium Gluconate Complex (Ferrlecit) 125 mg IVPB DAILY [facility] Stop: 01/22/19 12:31 Last Admin: 01/18/19 09:37 Dose: 125 mg Glipizide (Glucotrol) 5 mg PO ACB [facility] Last Admin: 01/19/19 14:07 Dose: 5 mg Heparin Sodium (Porcine) (Heparin) 5,000 units SC Q12 [facility] Last Admin: 01/18/19 21:25 Dose: 5,000 units Hydralazine HCl (Apresoline) 10 mg PO Q8 [facility] Last Admin: 01/19/19 14:31 Dose: 10 mg Heparin Sodium/Sodium Chloride (Heparin 52111 Units/250ml 1/2 Normal Saline) 25,000 units in 250 mls @ 8.981 mls/hr IV .Q24H PRN; Protocol PRN Reason: PROTOCOL Last Admin: 01/19/19 14:20 Dose: 12 units/kg/hr, 8.981 mls/hr Insulin Glargine (Lantus) 20 unit SC HS [facility] Last Admin: 01/18/19 21:18 Dose: Not Given Insulin Human Regular (Novolin R) 0 unit SC ACHS [facility]; Protocol Last Admin: 01/19/19 12:51 Dose: 4 u Losartan Potassium (Cozaar) 25 mg PO DAILY [facility] Last Admin: 01/19/19 12:48 Dose: 25 mg Rosuvastatin Calcium (Crestor) 40 mg PO HS [facility] Sitagliptin Phosphate (Januvia) 25 mg PO DAILY [facility] Last Admin: 01/19/19 12:48 Dose: 25 mg - Labs Labs: 01/17/19 06:36 01/17/19 06:36 PT 10.8 SECONDS (9.7-12.2) 01/19/19 12:49 INR 1.0 01/19/19 12:49 APTT 40.4 SECONDS (21-34) H 01/19/19 12:49 - Constitutional Appears: Well, No Acute Distress - Head Exam Head Exam: NORMOCEPHALIC - Respiratory Exam Respiratory Exam: NORMAL BREATHING PATTERN - Cardiovascular Exam Cardiovascular Exam: REGULAR RHYTHM - GI/Abdominal Exam GI & Abdominal Exam: Soft. absent: Tenderness Assessment and Plan (1) Anemia Assessment & Plan: Likely anemia of chronic disease Status: Acute (2) ESRD (end stage renal disease) Assessment & Plan: on dialysis Status: Acute (3) OB + stool Assessment & Plan: on Plavix and Heparin need to monitor for signs of GI blood losses Too acutely ill for EGd or Colonoscopy, so will defer the examinations for now PPI recommended Status: Acute
[2019-01-19 15:54] LABS: BASO # 0.1 K/uL (0.0-0.2); BASO % 0.5 % (0.0-2.0); EOS # 0.2 K/uL (0.0-0.7); EOS % 2.3 % (0.0-4.0); HEMOGLOBIN 9.1 g/dL (12.0-18.0); LYMPH # 1.4 K/uL (1.0-4.3); LYMPH % 13.2 % (20.0-40.0); MEAN CELL VOLUME 90.7 fL (80.0-94.0); MEAN CORPUSCULAR HEMOGLOBIN 31.2 pg (27.0-31.0); MEAN CORPUSCULAR HGB CONC 34.4 g/dL (33.0-37.0); MONO # 0.7 K/uL (0.0-0.8); MONO % 6.6 % (0.0-10.0); NEUT % 77.4 % (50.0-75.0); NRBC % 0.1 % (0.0-2.0); RBC 2.91 Mil/uL (4.40-5.90); RED CELL DISTRIBUTION WIDTH 13.2 % (11.5-14.5)
[2019-01-19 15:56] LABS: WHITE BLOOD COUNT 10.4 K/uL (4.8-10.8)
[2019-01-19] MEDS: Pantoprazole 40 mg EC Tab PO SCH (15:59)
[2019-01-19 16:25] LABS: ALB/GLOB RATIO 1.1 (1.0-2.1); ALBUMIN 3.4 g/dL (3.5-5.0); CALCIUM 8.7 mg/dl (8.6-10.4)
[2019-01-19] MEDS: Epoetin Alfa 10,000 unit/ml Dialysis IV SCH (16:53)
[2019-01-19] MEDS: Ferric Sodium Gluconat Complex 62.5 mg/5 ml Vial IVPB SCH (17:36)
[2019-01-19] MEDS: (Lantus) Insulin Glargine, Recombinant SC SCH (21:36)
[2019-01-20 06:12] LABS: BASO # 0.1 K/uL (0.0-0.2); BASO % 0.7 % (0.0-2.0); EOS # 0.2 K/uL (0.0-0.7); EOS % 1.2 % (0.0-4.0); LYMPH # 1.7 K/uL (1.0-4.3); LYMPH % 13.7 % (20.0-40.0); MEAN CELL VOLUME 91.8 fL (80.0-94.0); MEAN CORPUSCULAR HEMOGLOBIN 30.5 pg (27.0-31.0); MEAN CORPUSCULAR HGB CONC 33.2 g/dL (33.0-37.0); MEAN PLATELET VOLUME 8.3 fL (7.2-11.7); MONO % 7.6 % (0.0-10.0); NEUT # 9.7 K/uL (1.8-7.0); NEUT % 76.8 % (50.0-75.0); NRBC % 0.3 % (0.0-2.0); RBC 2.95 Mil/uL (4.40-5.90); RED CELL DISTRIBUTION WIDTH 13.1 % (11.5-14.5); WHITE BLOOD COUNT 12.6 K/uL (4.8-10.8)
[2019-01-20 06:36] LABS: ALB/GLOB RATIO 1.2 (1.0-2.1); ALBUMIN 3.5 g/dL (3.5-5.0); CALCIUM 8.3 mg/dl (8.6-10.4)
[2019-01-20] MEDS: (Novolin R) Insulin Human Regular 100 units/ml vial SC SCH ×4 (08:07→22:13)
--- NOTE | 2019-01-20 08:59 | CP.PCM.PN ---
Subjective - Date & Time of Evaluation Date of Evaluation: 01/20/19 Time of Evaluation: 09:00 - Subjective Subjective: bp stable.afebrile cbc chems noted awake alert eating breakfast comfortable ROS no chills fever no chest pain sob cough no abd pain,n,v,d no dysuria hematuria no back pain,joint pain no headache dizziness Objective - Vital Signs/Intake and Output Vital Signs (last 24 hours): Temp Pulse Resp BP Pulse Ox 99.4 F 94 H 12 138/75 95 01/20/19 08:00 01/20/19 08:07 01/20/19 08:07 01/20/19 08:07 01/20/19 08:07 Intake and Output: 01/20/19 01/20/19 06:59 18:59 Intake Total 81.6 11.4 Output Total 100 Balance -18.4 11.4 - Medications Medications: Current Medications Amlodipine Besylate (Norvasc) 10 mg PO DAILY [facility] Last Admin: 01/19/19 12:48 Dose: 10 mg Aspirin (Ecotrin) 81 mg PO DAILY [facility] Calcitriol (Rocaltrol) 0.25 mcg PO DAILY [facility] Last Admin: 01/19/19 12:48 Dose: 0.25 mcg Calcium Acetate (Phoslo) 667 mg PO TIDCC [facility] Last Admin: 01/20/19 08:07 Dose: 667 mg Carvedilol (Coreg) 6.25 mg PO BID [facility] Last Admin: 01/19/19 17:37 Dose: 6.25 mg Clopidogrel Bisulfate (Plavix) 75 mg PO DAILY [facility] Epoetin Venu (Procrit) 10,000 unit IV MWF [facility] Last Admin: 01/19/19 16:53 Dose: 10,000 unit Famotidine (Pepcid) 20 mg PO BID [facility] Last Admin: 01/19/19 17:37 Dose: 20 mg Ferric Sodium Gluconate Complex (Ferrlecit) 125 mg IVPB DAILY [facility] Stop: 01/22/19 12:31 Last Admin: 01/19/19 17:36 Dose: 125 mg Glipizide (Glucotrol) 5 mg PO ACB [facility] Last Admin: 01/20/19 08:07 Dose: 5 mg Hydralazine HCl (Apresoline) 10 mg PO Q8 [facility] Last Admin: 01/20/19 06:16 Dose: 10 mg Heparin Sodium/Sodium Chloride (Heparin 69526 Units/250ml 1/2 Normal Saline) 25,000 units in 250 mls @ 5.742 mls/hr IV .Q24H PRN; Protocol PRN Reason: ADJUST RATE PER PROTOCOL Last Admin: 01/19/19 23:30 Dose: 9 units/kg/hr, 5.742 mls/hr Insulin Glargine (Lantus) 20 unit SC [facility] Last Admin: 01/19/19 21:36 Dose: 20 unit Insulin Human Regular (Novolin R) 0 unit SC [facility]; Protocol Last Admin: 01/20/19 08:07 Dose: 2 u Losartan Potassium (Cozaar) 25 mg PO DAILY [facility] Last Admin: 01/19/19 12:48 Dose: 25 mg Rosuvastatin Calcium (Crestor) 40 mg PO HS [facility] Last Admin: 01/19/19 21:36 Dose: 40 mg Sitagliptin Phosphate (Januvia) 25 mg PO DAILY [facility] Last Admin: 01/19/19 12:48 Dose: 25 mg - Labs Labs: 01/20/19 05:51 01/20/19 05:51 PT 10.8 SECONDS (9.7-12.2) 01/19/19 12:49 INR 1.0 01/19/19 12:49 APTT 64.7 SECONDS (21-34) H D 01/20/19 05:51 - Constitutional Appears: Well, No Acute Distress - Head Exam Head Exam: ATRAUMATIC, NORMOCEPHALIC - Eye Exam Eye Exam: Normal appearance - ENT Exam ENT Exam: Mucous Membranes Moist - Respiratory Exam Respiratory Exam: Clear to Ausculation Bilateral, NORMAL BREATHING PATTERN - Cardiovascular Exam Cardiovascular Exam: REGULAR RHYTHM. absent: JVD - GI/Abdominal Exam GI & Abdominal Exam: Soft. absent: Distended, Tenderness - Extremities Exam Extremities Exam: absent: Calf Tenderness, Pedal Edema - Back Exam Back Exam: absent: CVA tenderness (L), CVA tenderness (R) - Neurological Exam Neurological Exam: Alert, Awake - Psychiatric Exam Psychiatric exam: Normal Affect, Normal Mood - Skin Skin Exam: Dry Assessment and Plan (1) Coronary artery arteriosclerosis Status: Acute (2) ESRD (end stage renal disease) Status: Acute - Assessment and Plan (Free Text) Plan: transfer to [place] 01/21 for ptca stent schedule dialysis for 01/21 orders written contniue to ultrafiltrate follow cardiology recommendations
[2019-01-20] MEDS: Ferric Sodium Gluconat Complex 62.5 mg/5 ml Vial IVPB SCH (09:44)
--- NOTE | 2019-01-20 13:34 | CP.CCUPN ---
<Tootie De La Cruz - Last Filed: 01/20/19 15:53> CCU Subjective - Physician Review Subjective (Free Text): ICU CONSULT NOTE FOR DR. MARSHALL DE LA CRUZ PGY1 Pt seen and examined at bedside this am. Underwent HD with 1L removed yesterday. No chest pain this am. Resting comfortably, no complaints today CCU Objective - Vital Signs / Intake & Output Vital Signs (Last 4 hours): Vital Signs Temp Pulse Resp BP Pulse Ox 01/20/19 13:06 98 H 12 176/83 H 97 01/20/19 12:06 97 H 14 156/81 H 97 01/20/19 12:00 100.1 F H 01/20/19 11:06 95 H 19 154/77 H 93 L 01/20/19 10:07 95 H 19 148/77 94 L Intake and Output (Last 8hrs): Intake & Output 01/19/19 01/20/19 01/20/19 22:59 06:59 14:59 Intake Total 72 45.6 619.9 Output Total 350 100 Balance -278 45.6 519.9 Weight 63.8 kg Intake: IV 0 0 Intake, IV Amount 72 45.6 139.9 Right Forearm 72 45.6 100 Right Upper arm 39.9 Oral 480 Output: Urine 350 100 Urine, Voided 350 100 Other: # Voids Urine, Voided 1 200 1 # Bowel Movements 1 - Physical Exam Head: Positive for: Atraumatic, Normocephalic Pupils: Positive for: PERRL Extroacular Muscles: Positive for: EOMI Conjunctiva: Positive for: Normal Mouth: Positive for: Moist Mucous Membranes Neck: Positive for: Normal Range of Motion, Other (R IJ permcath in place. No erythema/purulence) Respiratory/Chest: Positive for: Clear to Auscultation, Good Air Exchange Cardiovascular: Positive for: Regular Rate and Rhythm, Normal S1, S2 Abdomen: Positive for: Normal Bowel Sounds Upper Extremity: Positive for: Normal Inspection Lower Extremity: Positive for: Normal Inspection Neurological: Positive for: GCS=15, CN II-XII Intact Skin: Positive for: Warm, Dry Psychiatric: Positive for: Alert, Oriented x 3 - Medications Active Medications: Active Medications Generic Name Dose Route Start Last Admin Trade Name Freq PRN Reason Stop Dose Admin Amlodipine Besylate 10 mg 01/15/19 10:00 01/20/19 09:44 Norvasc PO 10 mg DAILY [facility] Administration Aspirin 81 mg 01/20/19 10:00 01/20/19 09:44 Ecotrin PO 81 mg DAILY [facility] Administration Calcitriol 0.25 mcg 01/17/19 10:00 01/20/19 09:45 Rocaltrol PO 0.25 mcg DAILY [facility] Administration Calcium Acetate 667 mg 01/16/19 12:00 01/20/19 11:46 Phoslo PO 667 mg TIDCC R[facility]EN Administration Carvedilol 6.25 mg 01/17/19 19:55 01/20/19 09:43 Coreg PO 6.25 mg BID [facility] Administration Clopidogrel Bisulfate 75 mg 01/20/19 10:00 01/20/19 09:45 Plavix PO 75 mg DAILY [facility] Administration Epoetin Venu 10,000 unit 01/16/19 17:30 01/19/19 16:53 Procrit IV 10,000 unit MWF [facility] Administration Famotidine 20 mg 01/21/19 10:00 Pepcid PO DAILY [facility] Ferric Sodium Gluconate Complex 125 mg 01/16/19 12:30 01/20/19 09:44 Ferrlecit IVPB 01/22/19 12:31 125 mg DAILY [facility] Administration Glipizide 5 mg 01/18/19 07:30 01/20/19 08:07 Glucotrol PO 5 mg ACB R[facility] Administration Hydralazine HCl 10 mg 01/17/19 22:00 01/20/19 06:16 Apresoline PO 10 mg Q8 [facility] Administration Heparin Sodium/Sodium Chloride 25,000 units in 250 mls @ 5.742 mls/hr 01/19/19 23:23 01/19/19 23:30 Heparin 27938 Units/250ml 1/2 Normal Saline IV 01/21/19 00:00 9 units/kg/hr .Q24H PRN 5.742 mls/hr ADJUST RATE PER PROTOCOL Administration Protocol 9 UNITS/KG/HR Insulin Glargine 20 unit 01/17/19 22:00 01/19/19 21:36 Lantus SC 20 unit HS [facility] Administration Insulin Human Regular 0 unit 01/15/19 07:30 01/20/19 11:46 Novolin R SC 3 u ACHS RUBEN Administration Protocol Losartan Potassium 25 mg 01/18/19 10:00 01/20/19 09:44 Cozaar PO 25 mg DAILY [facility] Administration Rosuvastatin Calcium 40 mg 01/19/19 22:00 01/19/19 21:36 Crestor PO 40 mg HS [facility] Administration Sitagliptin Phosphate 25 mg 01/18/19 10:00 01/20/19 09:44 Januvia PO 25 mg DAILY [facility] Administration - Patient Studies Lab Studies: Microbiology Studies 01/19/19 12:11 MRSA Culture (Admit) - Final [place]aris MRSA NOT DETECTED Lab Studies 01/20/19 01/20/19 01/20/19 Range/Units 11:19 05:51 05:51 WBC (4.8-10.8) K/uL RBC (4.40-5.90) Mil/uL Hgb (12.0-18.0) g/dL Hct (35.0-51.0) % MCV (80.0-94.0) fL MCH (27.0-31.0) pg MCHC (33.0-37.0) g/dL RDW (11.5-14.5) % Plt Count (130-400) K/uL MPV (7.2-11.7) fL Neut % (Auto) (50.0-75.0) % Lymph % (Auto) (20.0-40.0) % [place] % (Auto) (0.0-10.0) % Eos % (Auto) (0.0-4.0) % Baso % (Auto) (0.0-2.0) % Neut # (Auto) (1.8-7.0) K/uL Lymph # (Auto) (1.0-4.3) K/uL [place] # (Auto) (0.0-0.8) K/uL Eos # (Auto) (0.0-0.7) K/uL Baso # (Auto) (0.0-0.2) K/uL APTT 68.4 H 64.7 H D (21-34) SECONDS Sodium 136 (132-148) mmol/L Potassium 3.8 (3.6-5.2) mmol/L Chloride 97 L (98-107) mmol/L Carbon Dioxide 27 (22-30) mmol/L Anion Gap 15 (10-20) BUN 29 H (9-20) mg/dL Creatinine 5.5 H (0.8-1.5) mg/dL Est GFR ( Amer) 13 Est GFR (Non-Af Amer) 11 Random Glucose 172 H D (75-110) mg/dL Calcium 8.3 L (8.6-10.4) mg/dl Phosphorus 2.8 (2.5-4.5) mg/dL Magnesium 1.7 (1.6-2.3) mg/dL Total Bilirubin 0.3 (0.2-1.3) mg/dL AST 55 (17-59) U/L ALT 51 (21-72) U/L Alkaline Phosphatase 110 (38-126) U/L Total Protein 6.5 (6.3-8.3) g/dL Albumin 3.5 (3.5-5.0) g/dL Globulin 3.0 (2.2-3.9) gm/dL Albumin/Globulin Ratio 1.2 (1.0-2.1) 01/20/19 01/19/19 01/19/19 Range/Units 05:51 20:21 15:48 WBC 12.6 H (4.8-10.8) K/uL RBC 2.95 L (4.40-5.90) Mil/uL Hgb 9.0 L (12.0-18.0) g/dL Hct 27.1 L (35.0-51.0) % MCV 91.8 (80.0-94.0) fL MCH 30.5 (27.0-31.0) pg MCHC 33.2 (33.0-37.0) g/dL RDW 13.1 (11.5-14.5) % Plt Count 239 (130-400) K/uL MPV 8.3 (7.2-11.7) fL Neut % (Auto) 76.8 H (50.0-75.0) % Lymph % (Auto) 13.7 L (20.0-40.0) % [place] % (Auto) 7.6 (0.0-10.0) % Eos % (Auto) 1.2 (0.0-4.0) % Baso % (Auto) 0.7 (0.0-2.0) % Neut # (Auto) 9.7 H (1.8-7.0) K/uL Lymph # (Auto) 1.7 (1.0-4.3) K/uL [place] # (Auto) 1.0 H (0.0-0.8) K/uL Eos # (Auto) 0.2 (0.0-0.7) K/uL Baso # (Auto) 0.1 (0.0-0.2) K/uL APTT 102.9 H* D (21-34) SECONDS Sodium 133 (132-148) mmol/L Potassium 4.0 (3.6-5.2) mmol/L Chloride 97 L (98-107) mmol/L Carbon Dioxide 28 (22-30) mmol/L Anion Gap 12 (10-20) BUN 56 H (9-20) mg/dL Creatinine 7.5 H* D (0.8-1.5) mg/dL Est GFR ( Amer) 9 Est GFR (Non-Af Amer) 8 Random Glucose 287 H (75-110) mg/dL Calcium 8.7 (8.6-10.4) mg/dl Phosphorus 4.6 H (2.5-4.5) mg/dL Magnesium 1.8 (1.6-2.3) mg/dL Total Bilirubin 0.3 (0.2-1.3) mg/dL AST 51 (17-59) U/L ALT 43 (21-72) U/L Alkaline Phosphatase 100 (38-126) U/L Total Protein 6.5 (6.3-8.3) g/dL Albumin 3.4 L (3.5-5.0) g/dL Globulin 3.1 (2.2-3.9) gm/dL Albumin/Globulin Ratio 1.1 (1.0-2.1) 01/19/19 Range/Units 15:48 WBC 10.4 D (4.8-10.8) K/uL RBC 2.91 L (4.40-5.90) Mil/uL Hgb 9.1 L (12.0-18.0) g/dL Hct 26.4 L (35.0-51.0) % MCV 90.7 (80.0-94.0) fL MCH 31.2 H (27.0-31.0) pg MCHC 34.4 (33.0-37.0) g/dL RDW 13.2 (11.5-14.5) % Plt Count 236 (130-400) K/uL MPV 8.0 (7.2-11.7) fL Neut % (Auto) 77.4 H (50.0-75.0) % Lymph % (Auto) 13.2 L (20.0-40.0) % [place] % (Auto) 6.6 (0.0-10.0) % Eos % (Auto) 2.3 (0.0-4.0) % Baso % (Auto) 0.5 (0.0-2.0) % Neut # (Auto) 8.0 H (1.8-7.0) K/uL Lymph # (Auto) 1.4 (1.0-4.3) K/uL [place] # (Auto) 0.7 (0.0-0.8) K/uL Eos # (Auto) 0.2 (0.0-0.7) K/uL Baso # (Auto) 0.1 (0.0-0.2) K/uL APTT (21-34) SECONDS Sodium (132-148) mmol/L Potassium (3.6-5.2) mmol/L Chloride (98-107) mmol/L Carbon Dioxide (22-30) mmol/L Anion Gap (10-20) BUN (9-20) mg/dL Creatinine (0.8-1.5) mg/dL Est GFR ( Amer) Est GFR (Non-Af Amer) Random Glucose (75-110) mg/dL Calcium (8.6-10.4) mg/dl Phosphorus (2.5-4.5) mg/dL Magnesium (1.6-2.3) mg/dL Total Bilirubin (0.2-1.3) mg/dL AST (17-59) U/L ALT (21-72) U/L Alkaline Phosphatase (38-126) U/L Total Protein (6.3-8.3) g/dL Albumin (3.5-5.0) g/dL Globulin (2.2-3.9) gm/dL Albumin/Globulin Ratio (1.0-2.1) Laboratory Results - last 24 hr 01/19/19 01/19/19 01/19/19 15:48 15:48 20:21 WBC 10.4 D RBC 2.91 L Hgb 9.1 L Hct 26.4 L MCV 90.7 MCH 31.2 H MCHC 34.4 RDW 13.2 Plt Count 236 MPV 8.0 Neut % (Auto) 77.4 H Lymph % (Auto) 13.2 L [place] % (Auto) 6.6 Eos % (Auto) 2.3 Baso % (Auto) 0.5 Neut # (Auto) 8.0 H Lymph # (Auto) 1.4 [place] # (Auto) 0.7 Eos # (Auto) 0.2 Baso # (Auto) 0.1 APTT 102.9 H* D Sodium 133 Potassium 4.0 Chloride 97 L Carbon Dioxide 28 Anion Gap 12 BUN 56 H Creatinine 7.5 H* D Est GFR ( Amer) 9 Est GFR (Non-Af Amer) 8 Random Glucose 287 H Calcium 8.7 Phosphorus 4.6 H Magnesium 1.8 Total Bilirubin 0.3 AST 51 ALT 43 Alkaline Phosphatase 100 Total Protein 6.5 Albumin 3.4 L Globulin 3.1 Albumin/Globulin Ratio 1.1 01/20/19 01/20/19 01/20/19 05:51 05:51 05:51 WBC 12.6 H RBC 2.95 L Hgb 9.0 L Hct 27.1 L MCV 91.8 MCH 30.5 MCHC 33.2 RDW 13.1 Plt Count 239 MPV 8.3 Neut % (Auto) 76.8 H Lymph % (Auto) 13.7 L [place] % (Auto) 7.6 Eos % (Auto) 1.2 Baso % (Auto) 0.7 Neut # (Auto) 9.7 H Lymph # (Auto) 1.7 [place] # (Auto) 1.0 H Eos # (Auto) 0.2 Baso # (Auto) 0.1 APTT 64.7 H D Sodium 136 Potassium 3.8 Chloride 97 L Carbon Dioxide 27 Anion Gap 15 BUN 29 H Creatinine 5.5 H Est GFR ( Amer) 13 Est GFR (Non-Af Amer) 11 Random Glucose 172 H D Calcium 8.3 L Phosphorus 2.8 Magnesium 1.7 Total Bilirubin 0.3 AST 55 ALT 51 Alkaline Phosphatase 110 Total Protein 6.5 Albumin 3.5 Globulin 3.0 Albumin/Globulin Ratio 1.2 01/20/19 11:19 WBC RBC Hgb Hct MCV MCH MCHC RDW Plt Count MPV Neut % (Auto) Lymph % (Auto) [place] % (Auto) Eos % (Auto) Baso % (Auto) Neut # (Auto) Lymph # (Auto) [place] # (Auto) Eos # (Auto) Baso # (Auto) APTT 68.4 H Sodium Potassium Chloride Carbon Dioxide Anion Gap BUN Creatinine Est GFR ( Amer) Est GFR (Non-Af Amer) Random Glucose Calcium Phosphorus Magnesium Total Bilirubin AST ALT Alkaline Phosphatase Total Protein Albumin Globulin Albumin/Globulin Ratio Fingerstick Blood Sugar Results: 244 Review of Systems - Review of Systems Review of Systems: per HPI Critical Care Progress Note - Nutrition Nutrition: Nutrition Category Date Time Status NPO Diet [DIET] Diets 01/21/19 Breakfast Active Renal Diet [DIET] Diets 01/20/19 Lunch Active Assessment/Plan - Assessment and Plan (Free Text) Assessment: 58 y/o M with PMH CRI now ESRD likely 2/2 diabetic nephropathy 2/2 uncontrolled DM, newly diagnosed CAD, HTN, HLD, hyperuricemia, gout transferred to ICU today for monitoring of critical LAD disease with initiation of heparin drip, loading dose plavix, aspirin, statin. Pt is to be on heparin dripwith plan for PCI of LAD at [facility] on Sunday 01/21 Plan: Neuro: AxO x 3 GCS 15 CV NSTEMI -Currently no chest pain, SOB, diaphoresis -S/P cardiac cath 01/19 found to have 1. L main: patent 2. LAD: prox 80%, Mid 99% 3. L Cx/OM: patent 4. RCA: Dominant, Distal 60% 5. EF: 60%, EDP 24 -continue heparin gtt with bolus per NSTEMI protocol. -continue plavix, aspirin, rosuvastatin 40mg, carvedilol 6.25 -Pt to be transferred for PCI tomorrow morning 9am. STOP heparin drip at midnight. NPO past midnight HTN -BP controlled in 140s/70s -c/w amlodipine 10qd, losartan 25mg qd, hydralazine 10Q8 /Renal ESRD on HD -s/p RJ permcath placement for HD initiation -c/w dialysis sessions per nephrology recs. s/p 1L removed yesterday -c/w phosphate binder: phoslo -c/w calcitriol -monitor UOP Endocrine DM -BS 200's -c/w insulin glargine 20u HS, glipizide 5mg, sitagliptin 25mg qd, -c/w insulin sliding scale -maintain euglycemia <180 per NICE-SUGAR trial Heme Anemia -Hgb improved with medication mgmt -likely 2/2 CKD -c/w procrit -c/w ferric sodium gluconate DVT/GI PPX: heparin/pepcid Dispo: PCI tomorrow 9am with return to ICU for post-procedure monitoring Case reviewed with attending physician, Dr. Carla De La Cruz PGY1 <Santana Mueller S - Last Filed: 01/20/19 18:33> CCU Subjective - Physician Review Critical Care Time Spent (in minutes): 40 CCU Objective - Vital Signs / Intake & Output Vital Signs (Last 4 hours): Vital Signs Temp Pulse Resp BP Pulse Ox 01/20/19 18:06 96 H 23 141/70 93 L 01/20/19 17:06 94 H 23 134/74 93 L 01/20/19 16:06 93 H 23 135/75 94 L 01/20/19 16:00 98.8 F 01/20/19 15:06 92 H 23 144/74 95 Intake and Output (Last 8hrs): Intake & Output 01/20/19 01/20/19 01/20/19 06:59 14:59 22:59 Intake Total 45.6 625.6 372.8 Output Total 275 125 Balance 45.6 350.6 247.8 Weight 140 lb 10.479 oz Intake: IV 0 Intake, IV Amount 45.6 145.6 22.8 Right Forearm 45.6 100 Right Upper arm 45.6 22.8 Oral 480 350 Output: Urine 275 125 Urine, Voided 275 125 Other: # Voids Urine, Voided 200 1 1 # Bowel Movements 1 - Medications Active Medications: Active Medications Generic Name Dose Route Start Last Admin Trade Name Freq PRN Reason Stop Dose Admin Amlodipine Besylate 10 mg 01/15/19 10:00 01/20/19 09:44 Norvasc PO 10 mg DAILY [facility] Administration Aspirin 81 mg 01/20/19 10:00 01/20/19 09:44 Ecotrin PO 81 mg DAILY [facility] Administration Calcitriol 0.25 mcg 01/17/19 10:00 01/20/19 09:45 Rocaltrol PO 0.25 mcg DAILY [facility] Administration Calcium Acetate 667 mg 01/16/19 12:00 01/20/19 17:12 Phoslo PO 667 mg TIDCC [facility] Administration Carvedilol 6.25 mg 01/17/19 19:55 01/20/19 17:11 Coreg PO 6.25 mg BID [facility] Administration Clopidogrel Bisulfate 75 mg 01/20/19 10:00 01/20/19 09:45 Plavix PO 75 mg DAILY [facility] Administration Epoetin Venu 10,000 unit 01/16/19 17:30 01/19/19 16:53 Procrit IV 10,000 unit MWF [facility] Administration Famotidine 20 mg 01/21/19 10:00 Pepcid PO DAILY [facility] Ferric Sodium Gluconate Complex 125 mg 01/16/19 12:30 01/20/19 09:44 Ferrlecit IVPB 01/22/19 12:31 125 mg DAILY [facility] Administration Glipizide 5 mg 01/18/19 07:30 01/20/19 08:07 Glucotrol PO 5 mg ACB [facility] Administration Hydralazine HCl 10 mg 01/17/19 22:00 01/20/19 14:20 Apresoline PO 10 mg Q8 [facility] Administration Heparin Sodium/Sodium Chloride 25,000 units in 250 mls @ 5.742 mls/hr 01/19/19 23:23 01/19/19 23:30 Heparin 15531 Units/250ml 1/2 Normal Saline IV 01/21/19 00:00 9 units/kg/hr .Q24H PRN 5.742 mls/hr ADJUST RATE PER PROTOCOL Administration Protocol 9 UNITS/KG/HR Insulin Glargine 20 unit 01/17/19 22:00 01/19/19 21:36 Lantus SC 20 unit HS [facility] Administration Insulin Human Regular 0 unit 01/15/19 07:30 01/20/19 17:11 Novolin R SC 3 u ACHS [facility] Administration Protocol Losartan Potassium 25 mg 01/18/19 10:00 01/20/19 09:44 Cozaar PO 25 mg DAILY [facility] Administration Rosuvastatin Calcium 40 mg 01/19/19 22:00 01/19/19 21:36 Crestor PO 40 mg HS [facility] Administration Sitagliptin Phosphate 25 mg 01/18/19 10:00 01/20/19 09:44 Januvia PO 25 mg DAILY [facility] Administration - Patient Studies Lab Studies: Microbiology Studies 01/19/19 12:11 MRSA Culture (Admit) - Final [place]aris MRSA NOT DETECTED Lab Studies 01/20/19 01/20/19 01/20/19 Range/Units 11:19 05:51 05:51 WBC (4.8-10.8) K/uL RBC (4.40-5.90) Mil/uL Hgb (12.0-18.0) g/dL Hct (35.0-51.0) % MCV (80.0-94.0) fL MCH (27.0-31.0) pg MCHC (33.0-37.0) g/dL RDW (11.5-14.5) % Plt Count (130-400) K/uL MPV (7.2-11.7) fL Neut % (Auto) (50.0-75.0) % Lymph % (Auto) (20.0-40.0) % [place] % (Auto) (0.0-10.0) % Eos % (Auto) (0.0-4.0) % Baso % (Auto) (0.0-2.0) % Neut # (Auto) (1.8-7.0) K/uL Lymph # (Auto) (1.0-4.3) K/uL [place] # (Auto) (0.0-0.8) K/uL Eos # (Auto) (0.0-0.7) K/uL Baso # (Auto) (0.0-0.2) K/uL APTT 68.4 H 64.7 H D (21-34) SECONDS Sodium 136 (132-148) mmol/L Potassium 3.8 (3.6-5.2) mmol/L Chloride 97 L (98-107) mmol/L Carbon Dioxide 27 (22-30) mmol/L Anion Gap 15 (10-20) BUN 29 H (9-20) mg/dL Creatinine 5.5 H (0.8-1.5) mg/dL Est GFR ( Amer) 13 Est GFR (Non-Af Amer) 11 POC Glucose (mg/dL) (65-110) mg/dL Random Glucose 172 H D (75-110) mg/dL Calcium 8.3 L (8.6-10.4) mg/dl Phosphorus 2.8 (2.5-4.5) mg/dL Magnesium 1.7 (1.6-2.3) mg/dL Total Bilirubin 0.3 (0.2-1.3) mg/dL AST 55 (17-59) U/L ALT 51 (21-72) U/L Alkaline Phosphatase 110 (38-126) U/L Total Protein 6.5 (6.3-8.3) g/dL Albumin 3.5 (3.5-5.0) g/dL Globulin 3.0 (2.2-3.9) gm/dL Albumin/Globulin Ratio 1.2 (1.0-2.1) 01/20/19 01/19/19 01/19/19 Range/Units 05:51 20:21 06:21 WBC 12.6 H (4.8-10.8) K/uL RBC 2.95 L (4.40-5.90) Mil/uL Hgb 9.0 L (12.0-18.0) g/dL Hct 27.1 L (35.0-51.0) % MCV 91.8 (80.0-94.0) fL MCH 30.5 (27.0-31.0) pg MCHC 33.2 (33.0-37.0) g/dL RDW 13.1 (11.5-14.5) % Plt Count 239 (130-400) K/uL MPV 8.3 (7.2-11.7) fL Neut % (Auto) 76.8 H (50.0-75.0) % Lymph % (Auto) 13.7 L (20.0-40.0) % [place] % (Auto) 7.6 (0.0-10.0) % Eos % (Auto) 1.2 (0.0-4.0) % Baso % (Auto) 0.7 (0.0-2.0) % Neut # (Auto) 9.7 H (1.8-7.0) K/uL Lymph # (Auto) 1.7 (1.0-4.3) K/uL [place] # (Auto) 1.0 H (0.0-0.8) K/uL Eos # (Auto) 0.2 (0.0-0.7) K/uL Baso # (Auto) 0.1 (0.0-0.2) K/uL APTT 102.9 H* D (21-34) SECONDS Sodium (132-148) mmol/L Potassium (3.6-5.2) mmol/L Chloride (98-107) mmol/L Carbon Dioxide (22-30) mmol/L Anion Gap (10-20) BUN (9-20) mg/dL Creatinine (0.8-1.5) mg/dL Est GFR ( Amer) Est GFR (Non-Af Amer) POC Glucose (mg/dL) 272 H (65-110) mg/dL Random Glucose (75-110) mg/dL Calcium (8.6-10.4) mg/dl Phosphorus (2.5-4.5) mg/dL Magnesium (1.6-2.3) mg/dL Total Bilirubin (0.2-1.3) mg/dL AST (17-59) U/L ALT (21-72) U/L Alkaline Phosphatase (38-126) U/L Total Protein (6.3-8.3) g/dL Albumin (3.5-5.0) g/dL Globulin (2.2-3.9) gm/dL Albumin/Globulin Ratio (1.0-2.1) 01/18/19 01/18/19 Range/Units 16:30 11:32 WBC (4.8-10.8) K/uL RBC (4.40-5.90) Mil/uL Hgb (12.0-18.0) g/dL Hct (35.0-51.0) % MCV (80.0-94.0) fL MCH (27.0-31.0) pg MCHC (33.0-37.0) g/dL RDW (11.5-14.5) % Plt Count (130-400) K/uL MPV (7.2-11.7) fL Neut % (Auto) (50.0-75.0) % Lymph % (Auto) (20.0-40.0) % [place] % (Auto) (0.0-10.0) % Eos % (Auto) (0.0-4.0) % Baso % (Auto) (0.0-2.0) % Neut # (Auto) (1.8-7.0) K/uL Lymph # (Auto) (1.0-4.3) K/uL [place] # (Auto) (0.0-0.8) K/uL Eos # (Auto) (0.0-0.7) K/uL Baso # (Auto) (0.0-0.2) K/uL APTT (21-34) SECONDS Sodium (132-148) mmol/L Potassium (3.6-5.2) mmol/L Chloride (98-107) mmol/L Carbon Dioxide (22-30) mmol/L Anion Gap (10-20) BUN (9-20) mg/dL Creatinine (0.8-1.5) mg/dL Est GFR ( Amer) Est GFR (Non-Af Amer) POC Glucose (mg/dL) 215 H 341 H (65-110) mg/dL Random Glucose (75-110) mg/dL Calcium (8.6-10.4) mg/dl Phosphorus (2.5-4.5) mg/dL Magnesium (1.6-2.3) mg/dL Total Bilirubin (0.2-1.3) mg/dL AST (17-59) U/L ALT (21-72) U/L Alkaline Phosphatase (38-126) U/L Total Protein (6.3-8.3) g/dL Albumin (3.5-5.0) g/dL Globulin (2.2-3.9) gm/dL Albumin/Globulin Ratio (1.0-2.1) Laboratory Results - last 24 hr 01/18/19 01/18/19 01/19/19 11:32 16:30 06:21 WBC RBC Hgb Hct MCV MCH MCHC RDW Plt Count MPV Neut % (Auto) Lymph % (Auto) [place] % (Auto) Eos % (Auto) Baso % (Auto) Neut # (Auto) Lymph # (Auto) [place] # (Auto) Eos # (Auto) Baso # (Auto) APTT Sodium Potassium Chloride Carbon Dioxide Anion Gap BUN Creatinine Est GFR ( Amer) Est GFR (Non-Af Amer) POC Glucose (mg/dL) 341 H 215 H 272 H Random Glucose Calcium Phosphorus Magnesium Total Bilirubin AST ALT Alkaline Phosphatase Total Protein Albumin Globulin Albumin/Globulin Ratio 01/19/19 01/20/19 01/20/19 20:21 05:51 05:51 WBC 12.6 H RBC 2.95 L Hgb 9.0 L Hct 27.1 L MCV 91.8 MCH 30.5 MCHC 33.2 RDW 13.1 Plt Count 239 MPV 8.3 Neut % (Auto) 76.8 H Lymph % (Auto) 13.7 L [place] % (Auto) 7.6 Eos % (Auto) 1.2 Baso % (Auto) 0.7 Neut # (Auto) 9.7 H Lymph # (Auto) 1.7 [place] # (Auto) 1.0 H Eos # (Auto) 0.2 Baso # (Auto) 0.1 APTT 102.9 H* D Sodium 136 Potassium 3.8 Chloride 97 L Carbon Dioxide 27 Anion Gap 15 BUN 29 H Creatinine 5.5 H Est GFR ( Amer) 13 Est GFR (Non-Af Amer) 11 POC Glucose (mg/dL) Random Glucose 172 H D Calcium 8.3 L Phosphorus 2.8 Magnesium 1.7 Total Bilirubin 0.3 AST 55 ALT 51 Alkaline Phosphatase 110 Total Protein 6.5 Albumin 3.5 Globulin 3.0 Albumin/Globulin Ratio 1.2 01/20/19 01/20/19 05:51 11:19 WBC RBC Hgb Hct MCV MCH MCHC RDW Plt Count MPV Neut % (Auto) Lymph % (Auto) [place] % (Auto) Eos % (Auto) Baso % (Auto) Neut # (Auto) Lymph # (Auto) [place] # (Auto) Eos # (Auto) Baso # (Auto) APTT 64.7 H D 68.4 H Sodium Potassium Chloride Carbon Dioxide Anion Gap BUN Creatinine Est GFR ( Amer) Est GFR (Non-Af Amer) POC Glucose (mg/dL) Random Glucose Calcium Phosphorus Magnesium Total Bilirubin AST ALT Alkaline Phosphatase Total Protein Albumin Globulin Albumin/Globulin Ratio Critical Care Progress Note - Nutrition Nutrition: Nutrition Category Date Time Status NPO Diet [DIET] Diets 01/21/19 Breakfast Active Renal Diet [DIET] Diets 01/20/19 Lunch Active Attending/Attestation - Attestation I have personally seen and examined this patient.: Yes I have fully participated in the care of the patient.: Yes I have reviewed all pertinent clinical information: Yes Notes (Text): 01/20/19 18:32 Patient seen and examined in the intensive care unit. Case discussed with housestaff in the morning rounds. S/P cardiac cath 01/19 found to have 1. L main: patent 2. LAD: prox 80%, Mid 99% 3. L Cx/OM: patent 4. RCA: Dominant, Distal 60% 5. EF: 60%, EDP 24 continue heparin gtt with bolus per NSTEMI protocol. continue plavix, aspirin, rosuvastatin 40mg, carvedilol 6.25 Pt to be transferred for PCI tomorrow
--- NOTE | 2019-01-20 14:46 | CP.PCM.PN ---
<Rafat Sheppard - Last Filed: 01/20/19 14:41> Subjective - Date & Time of Evaluation Date of Evaluation: 01/20/19 Time of Evaluation: 14:42 - Subjective Subjective: PGY2 Medicine Note for Dr. Mujica The patient was seen and examined at bedside. He is feeling well and laying comfortably in bed. Patient has a right internal jugular vein permacath and had is third hemodialysis yesterday. He denies chest pain, palpitations, shortness of breath, trouble breathing, leg swelling, fever, chills, and abdominal complaints. Patient complaining of right lateral ankle pain likely secondary to hx of hyperuricemia and gout. Objective - Vital Signs/Intake and Output Vital Signs (last 24 hours): Temp Pulse Resp BP Pulse Ox 100.1 F H 93 H 22 138/72 95 01/20/19 12:00 01/20/19 14:06 01/20/19 14:06 01/20/19 14:06 01/20/19 14:06 Intake and Output: 01/20/19 01/20/19 06:59 18:59 Intake Total 81.6 625.6 Output Total 100 275 Balance -18.4 350.6 - Medications Medications: Current Medications Amlodipine Besylate (Norvasc) 10 mg PO DAILY [facility] Last Admin: 01/20/19 09:44 Dose: 10 mg Aspirin (Ecotrin) 81 mg PO DAILY [facility] Last Admin: 01/20/19 09:44 Dose: 81 mg Calcitriol (Rocaltrol) 0.25 mcg PO DAILY [facility] Last Admin: 01/20/19 09:45 Dose: 0.25 mcg Calcium Acetate (Phoslo) 667 mg PO TIDCC [facility] Last Admin: 01/20/19 11:46 Dose: 667 mg Carvedilol (Coreg) 6.25 mg PO BID [facility] Last Admin: 01/20/19 09:43 Dose: 6.25 mg Clopidogrel Bisulfate (Plavix) 75 mg PO DAILY [facility] Last Admin: 01/20/19 09:45 Dose: 75 mg Epoetin Venu (Procrit) 10,000 unit IV MWF [facility] Last Admin: 01/19/19 16:53 Dose: 10,000 unit Famotidine (Pepcid) 20 mg PO DAILY [facility] Ferric Sodium Gluconate Complex (Ferrlecit) 125 mg IVPB DAILY [facility] Stop: 01/22/19 12:31 Last Admin: 01/20/19 09:44 Dose: 125 mg Glipizide (Glucotrol) 5 mg PO ACB [facility] Last Admin: 01/20/19 08:07 Dose: 5 mg Hydralazine HCl (Apresoline) 10 mg PO Q8 [facility] Last Admin: 01/20/19 14:20 Dose: 10 mg Heparin Sodium/Sodium Chloride (Heparin 06501 Units/250ml 1/2 Normal Saline) 25,000 units in 250 mls @ 5.742 mls/hr IV .Q24H PRN; Protocol PRN Reason: ADJUST RATE PER PROTOCOL Stop: 01/21/19 00:00 Last Admin: 01/19/19 23:30 Dose: 9 units/kg/hr, 5.742 mls/hr Insulin Glargine (Lantus) 20 unit SC HS [facility] Last Admin: 01/19/19 21:36 Dose: 20 unit Insulin Human Regular (Novolin R) 0 unit SC ACHS [facility]; Protocol Last Admin: 01/20/19 11:46 Dose: 3 u Losartan Potassium (Cozaar) 25 mg PO DAILY [facility] Last Admin: 01/20/19 09:44 Dose: 25 mg Rosuvastatin Calcium (Crestor) 40 mg PO HS [facility] Last Admin: 01/19/19 21:36 Dose: 40 mg Sitagliptin Phosphate (Januvia) 25 mg PO DAILY [facility] Last Admin: 01/20/19 09:44 Dose: 25 mg - Labs Labs: 01/20/19 05:51 01/20/19 05:51 PT 10.8 SECONDS (9.7-12.2) 01/19/19 12:49 INR 1.0 01/19/19 12:49 APTT 68.4 SECONDS (21-34) H 01/20/19 11:19 Assessment and Plan - Assessment and Plan (Free Text) Plan: CAD Cardiac Cath 01/19/19: * 1. L main: patent * 2. LAD: prox 80%, Mid 99% * 3. L Cx/OM: patent * 4. RCA: Dominant, Distal 60% * 5. EF: 60%, EDP 24 Patient is to be transferred to [facility] tomorrow morning for PCI at 9am. Patient to return after procedure. Hold Heparin drip after midnight NPO past MN except medications Continue current management at this time Case discussed with Dr. Guanako Sheppard PGY2 <Moses Mujica - Last Filed: 01/20/19 23:13> Objective - Vital Signs/Intake and Output Vital Signs (last 24 hours): Temp Pulse Resp BP Pulse Ox 98.6 F 92 H 20 152/76 H 94 L 01/20/19 20:00 01/20/19 22:06 01/20/19 22:06 01/20/19 22:06 01/20/19 22:06 Intake and Output: 01/20/19 01/21/19 18:59 06:59 Intake Total 1004.1 17.1 Output Total 400 100 Balance 604.1 -82.9 - Medications Medications: Current Medications Amlodipine Besylate (Norvasc) 10 mg PO DAILY [facility] Last Admin: 01/20/19 09:44 Dose: 10 mg Aspirin (Ecotrin) 81 mg PO DAILY [facility] Last Admin: 01/20/19 09:44 Dose: 81 mg Calcitriol (Rocaltrol) 0.25 mcg PO DAILY [facility] Last Admin: 01/20/19 09:45 Dose: 0.25 mcg Calcium Acetate (Phoslo) 667 mg PO TIDCC [facility] Last Admin: 01/20/19 17:12 Dose: 667 mg Carvedilol (Coreg) 6.25 mg PO BID [facility] Last Admin: 01/20/19 17:11 Dose: 6.25 mg Clopidogrel Bisulfate (Plavix) 75 mg PO DAILY [facility] Last Admin: 01/20/19 09:45 Dose: 75 mg Epoetin Venu (Procrit) 10,000 unit IV MWF [facility] Last Admin: 01/19/19 16:53 Dose: 10,000 unit Famotidine (Pepcid) 20 mg PO DAILY [facility] Ferric Sodium Gluconate Complex (Ferrlecit) 125 mg IVPB DAILY [facility] Stop: 01/22/19 12:31 Last Admin: 01/20/19 09:44 Dose: 125 mg Glipizide (Glucotrol) 5 mg PO ACB [facility] Last Admin: 01/20/19 08:07 Dose: 5 mg Hydralazine HCl (Apresoline) 10 mg PO Q8 [facility] Last Admin: 01/20/19 22:09 Dose: 10 mg Heparin Sodium/Sodium Chloride (Heparin 32401 Units/250ml 1/2 Normal Saline) 25,000 units in 250 mls @ 5.742 mls/hr IV .Q24H PRN; Protocol PRN Reason: ADJUST RATE PER PROTOCOL Stop: 01/21/19 00:00 Last Admin: 01/19/19 23:30 Dose: 9 units/kg/hr, 5.742 mls/hr Insulin Glargine (Lantus) 20 unit SC [facility] Last Admin: 01/20/19 22:09 Dose: 20 unit Insulin Human Regular (Novolin R) 0 unit SC [facility]; Protocol Last Admin: 01/20/19 22:13 Dose: Not Given Losartan Potassium (Cozaar) 25 mg PO DAILY [facility] Last Admin: 01/20/19 09:44 Dose: 25 mg Rosuvastatin Calcium (Crestor) 40 mg PO [facility] Last Admin: 01/20/19 22:09 Dose: 40 mg Sitagliptin Phosphate (Januvia) 25 mg PO DAILY [facility] Last Admin: 01/20/19 09:44 Dose: 25 mg - Labs Labs: 01/20/19 05:51 01/20/19 05:51 PT 10.8 SECONDS (9.7-12.2) 01/19/19 12:49 INR 1.0 01/19/19 12:49 APTT 68.4 SECONDS (21-34) H 01/20/19 11:19 Assessment and Plan - Assessment and Plan (Free Text) Plan: Patient seen and evaluated personally by me. Plan of care d/w the medical sonographer and as documented
[2019-01-20] MEDS: (Lantus) Insulin Glargine, Recombinant SC SCH (22:09)
--- NOTE | 2019-01-21 04:40 | CARDCATH ---
PROCEDURE DATE: 01/19/2019 PROCEDURES: 1. Left heart catheterization. 2. Coronary angiogram. CLINICAL INDICATIONS: 1. Chest pain. 2. Alo-VN-wltcostrn myocardial infarction with elevated troponin. 3. Coronary artery disease. 4. Hypertension. 5. Hyperlipidemia. 6. Renal failure, on hemodialysis. REFERRING PHYSICIAN: Logan Aguirre MD PERFORMING PHYSICIAN: Moses Mujica MD DESCRIPTION OF PROCEDURE: After informed consent, the patient was prepped and draped in the usual sterile fashion. Lidocaine 2% was given in the right groin for local anesthesia. Using micropuncture technique, a 6-[place] sheath was introduced into the right common femoral artery. A [id number] 6-[place] diagnostic catheter was engaged into left main coronary artery. Contrast was injected and left coronary angiogram was done. Then, the catheter was exchanged to a JR4 6-[place] diagnostic catheter. The catheter was inserted into the left ventricle. LVEDP was measured. Contrast was injected and LV angiogram was done. Then, the catheter was pulled back across the aortic valve. Gradient across the aortic valve was measured. Then, the same catheter engaged into right coronary artery. Contrast was injected and right coronary angiogram was done. The patient tolerated the procedure well. Postprocedure, Mynx closure device was deployed with excellent hemostasis. Radiological supervision and radiological interpretation of the coronary imaging was done. FINDINGS: 1. Left main coronary artery is patent. 2. LAD is a calcified artery. Proximal to distal LAD has a significant calcification. Proximal LAD has 50% stenosis. Mid LAD has 40% stenosis. Distal LAD has 99% focal stenosis. Diagonal branches are patent. 3. Left circumflex and obtuse marginal branches are patent. 4. Right coronary artery is dominant and patent. PLV branch has 50% concentric stenosis. 5. LV ejection fraction approximately 70%. No wall motion abnormalities noted. EDP is 24. No gradient across the aortic valve. IMPRESSION: 1. Distal left anterior descending coronary artery disease. 2. Mild arterial disease. 3. Normal left ventricular systolic function. PLAN: Recommend coronary intervention of the LAD. Moses Mujica MD
[2019-01-21 06:25] LABS: BASO # 0.1 K/uL (0.0-0.2); BASO % 0.6 % (0.0-2.0); EOS # 0.2 K/uL (0.0-0.7); EOS % 2.2 % (0.0-4.0); HEMOGLOBIN 9.1 g/dL (12.0-18.0); LYMPH # 1.3 K/uL (1.0-4.3); LYMPH % 11.4 % (20.0-40.0); MEAN CORPUSCULAR HEMOGLOBIN 31.3 pg (27.0-31.0); MEAN CORPUSCULAR HGB CONC 34.1 g/dL (33.0-37.0); MEAN PLATELET VOLUME 8.5 fL (7.2-11.7); MONO # 0.8 K/uL (0.0-0.8); MONO % 7.2 % (0.0-10.0); NEUT # 8.8 K/uL (1.8-7.0); NEUT % 78.6 % (50.0-75.0); RBC 2.9 Mil/uL (4.40-5.90); WHITE BLOOD COUNT 11.2 K/uL (4.8-10.8)
[2019-01-21 06:31] LABS: ALB/GLOB RATIO 1.4 (1.0-2.1); ALBUMIN 3.8 g/dL (3.5-5.0); CALCIUM 8.6 mg/dl (8.6-10.4)
[2019-01-21] MEDS: (Novolin R) Insulin Human Regular 100 units/ml vial SC SCH ×4 (07:30→21:38)
[2019-01-21 09:08] VITALS: BMI 23.4
[2019-01-21] MEDS: Ferric Sodium Gluconat Complex 62.5 mg/5 ml Vial IVPB SCH ×2 (09:40→17:17)
--- NOTE | 2019-01-21 10:35 | CP.PCM.PN ---
Subjective - Date & Time of Evaluation Date of Evaluation: 01/21/19 Time of Evaluation: 10:33 - Subjective Subjective: Patient s/p LAD stent (ARASH) D/C Heparin drip Plavix 75 daily for 1 year ASA, Statins, B blockers and CLARA I for life DVT/GI prophylaxis Ambulate after 1pm today Resume diet Patient cleared for AV fistula surgery Please do not stop ASA or Plavix for surgery Objective - Vital Signs/Intake and Output Vital Signs (last 24 hours): Temp Pulse Resp BP Pulse Ox 98.2 F 98 H 15 112/68 96 01/21/19 04:00 01/21/19 06:07 01/21/19 06:07 01/21/19 06:07 01/21/19 06:07 Intake and Output: 01/21/19 01/21/19 06:59 18:59 Intake Total 22.8 Output Total 400 Balance -377.2 - Medications Medications: Current Medications Amlodipine Besylate (Norvasc) 10 mg PO DAILY [facility] Last Admin: 01/21/19 09:38 Dose: Not Given Aspirin (Ecotrin) 81 mg PO DAILY [facility] Last Admin: 01/21/19 09:37 Dose: Not Given Calcitriol (Rocaltrol) 0.25 mcg PO DAILY [facility] Last Admin: 01/21/19 09:39 Dose: Not Given Calcium Acetate (Phoslo) 667 mg PO TIDCC [facility] Last Admin: 01/21/19 09:39 Dose: Not Given Carvedilol (Coreg) 6.25 mg PO BID [facility] Last Admin: 01/21/19 09:37 Dose: Not Given Clopidogrel Bisulfate (Plavix) 75 mg PO DAILY [facility] Last Admin: 01/21/19 09:39 Dose: Not Given Epoetin Venu (Procrit) 10,000 unit IV MWF [facility] Last Admin: 01/19/19 16:53 Dose: 10,000 unit Famotidine (Pepcid) 20 mg PO DAILY [facility] Last Admin: 01/21/19 09:39 Dose: Not Given Ferric Sodium Gluconate Complex (Ferrlecit) 125 mg IVPB DAILY [facility] Stop: 01/22/19 12:31 Last Admin: 01/21/19 09:40 Dose: Not Given Glipizide (Glucotrol) 5 mg PO ACB [facility] Last Admin: 01/21/19 09:38 Dose: Not Given Heparin Sodium (Porcine) (Heparin) 5,000 units SC BID [facility] Hydralazine HCl (Apresoline) 10 mg PO Q8 [facility] Last Admin: 01/21/19 06:31 Dose: 10 mg Insulin Glargine (Lantus) 20 unit SC HS [facility] Last Admin: 01/20/19 22:09 Dose: 20 unit Insulin Human Regular (Novolin R) 0 unit SC [facility]; Protocol Last Admin: 01/21/19 07:30 Dose: Not Given Losartan Potassium (Cozaar) 25 mg PO DAILY [facility] Last Admin: 01/21/19 09:40 Dose: Not Given Rosuvastatin Calcium (Crestor) 40 mg PO HS [facility] Last Admin: 01/20/19 22:09 Dose: 40 mg Sitagliptin Phosphate (Januvia) 25 mg PO DAILY [facility] Last Admin: 01/21/19 09:38 Dose: Not Given - Labs Labs: 01/21/19 06:09 01/21/19 06:07 PT 10.8 SECONDS (9.7-12.2) 01/19/19 12:49 INR 1.0 01/19/19 12:49 APTT 36.8 SECONDS (21-34) H D 01/21/19 06:09
--- NOTE | 2019-01-21 13:06 | CP.CCUPN ---
<Tootie De La Cruz - Last Filed: 01/21/19 15:06> CCU Subjective - Physician Review Subjective (Free Text): ICU CONSULT NOTE FOR DR. ERVIN DE LA CRUZ PGY1 Pt seen and examined at bedside this am. Pt is s/p ARASH placement. He tolerated procedure well. He is denying complaints CCU Objective - Vital Signs / Intake & Output Intake and Output (Last 8hrs): Intake & Output 01/20/19 01/21/19 01/21/19 22:59 06:59 14:59 Intake Total 395.6 5.7 Output Total 225 300 Balance 170.6 -294.3 Weight 63.503 kg Intake: IV 0 Intake, IV Amount 45.6 5.7 Right Upper arm 45.6 5.7 Oral 350 Output: Urine 225 300 Urine, Voided 225 300 Other: # Voids Urine, Voided 1 2 # Bowel Movements 1 - Physical Exam Head: Positive for: Atraumatic, Normocephalic Pupils: Positive for: PERRL Extroacular Muscles: Positive for: EOMI Conjunctiva: Positive for: Normal Mouth: Positive for: Moist Mucous Membranes Neck: Positive for: Normal Range of Motion, Other (R IJ permcath in place. No erythema/purulence) Respiratory/Chest: Positive for: Clear to Auscultation, Good Air Exchange Cardiovascular: Positive for: Regular Rate and Rhythm, Normal S1, S2 Abdomen: Positive for: Normal Bowel Sounds Upper Extremity: Positive for: Normal Inspection Lower Extremity: Positive for: Normal Inspection, Other (R groin dressing in place. No hematoma) Neurological: Positive for: GCS=15, CN II-XII Intact Skin: Positive for: Warm, Dry Psychiatric: Positive for: Alert, Oriented x 3 - Medications Active Medications: Active Medications Generic Name Dose Route Start Last Admin Trade Name Freq PRN Reason Stop Dose Admin Amlodipine Besylate 10 mg 01/15/19 10:00 01/21/19 09:38 Norvasc PO Not Given DAILY [facility] Aspirin 81 mg 01/20/19 10:00 01/21/19 09:37 Ecotrin PO Not Given DAILY [facility] Calcitriol 0.25 mcg 01/17/19 10:00 01/21/19 09:39 Rocaltrol PO Not Given DAILY [facility] Calcium Acetate 667 mg 01/16/19 12:00 01/21/19 11:55 Phoslo PO Not Given TIDCC [facility] Carvedilol 6.25 mg 01/17/19 19:55 01/21/19 09:37 Coreg PO Not Given BID [facility] Clopidogrel Bisulfate 75 mg 01/20/19 10:00 01/21/19 09:39 Plavix PO Not Given DAILY [facility] Epoetin Venu 10,000 unit 01/16/19 17:30 01/19/19 16:53 Procrit IV 10,000 unit MWF [facility] Administration Famotidine 20 mg 01/21/19 10:00 01/21/19 09:39 Pepcid PO Not Given DAILY [facility] Ferric Sodium Gluconate Complex 125 mg 01/16/19 12:30 01/21/19 09:40 Ferrlecit IVPB 01/22/19 12:31 Not Given DAILY [facility] Glipizide 5 mg 01/18/19 07:30 01/21/19 09:38 Glucotrol PO Not Given ACB [facility] Heparin Sodium (Porcine) 5,000 units 01/21/19 18:00 Heparin SC BID [facility] Hydralazine HCl 10 mg 01/17/19 22:00 01/21/19 06:31 Apresoline PO 10 mg Q8 [facility] Administration Insulin Glargine 20 unit 01/17/19 22:00 01/20/19 22:09 Lantus SC 20 unit HS [facility] Administration Insulin Human Regular 0 unit 01/15/19 07:30 01/21/19 11:55 Novolin R SC Not Given ACHS [facility] Protocol Losartan Potassium 25 mg 01/18/19 10:00 01/21/19 09:40 Cozaar PO Not Given DAILY [facility] Rosuvastatin Calcium 40 mg 01/19/19 22:00 01/20/19 22:09 Crestor PO 40 mg HS [facility] Administration Sitagliptin Phosphate 25 mg 01/18/19 10:00 01/21/19 09:38 Januvia PO Not Given DAILY [facility] - Patient Studies Lab Studies: Microbiology Studies 01/19/19 12:11 MRSA Culture (Admit) - Final Naris MRSA NOT DETECTED Lab Studies 01/21/19 01/21/19 01/21/19 Range/Units 06:09 06:09 06:07 WBC 11.2 H (4.8-10.8) K/uL RBC 2.90 L (4.40-5.90) Mil/uL Hgb 9.1 L (12.0-18.0) g/dL Hct 26.7 L (35.0-51.0) % MCV 92.0 (80.0-94.0) fL MCH 31.3 H (27.0-31.0) pg MCHC 34.1 (33.0-37.0) g/dL RDW 13.0 (11.5-14.5) % Plt Count 230 (130-400) K/uL MPV 8.5 (7.2-11.7) fL Neut % (Auto) 78.6 H (50.0-75.0) % Lymph % (Auto) 11.4 L (20.0-40.0) % Davis % (Auto) 7.2 (0.0-10.0) % Eos % (Auto) 2.2 (0.0-4.0) % Baso % (Auto) 0.6 (0.0-2.0) % Neut # (Auto) 8.8 H (1.8-7.0) K/uL Lymph # (Auto) 1.3 (1.0-4.3) K/uL Davis # (Auto) 0.8 (0.0-0.8) K/uL Eos # (Auto) 0.2 (0.0-0.7) K/uL Baso # (Auto) 0.1 (0.0-0.2) K/uL APTT 36.8 H D (21-34) SECONDS Sodium 131 L (132-148) mmol/L Potassium 3.9 (3.6-5.2) mmol/L Chloride 95 L (98-107) mmol/L Carbon Dioxide 23 (22-30) mmol/L Anion Gap 17 (10-20) BUN 48 H (9-20) mg/dL Creatinine 7.7 H* D (0.8-1.5) mg/dL Est GFR ( Amer) 9 Est GFR (Non-Af Amer) 7 POC Glucose (mg/dL) (65-110) mg/dL Random Glucose 140 H (75-110) mg/dL Calcium 8.6 (8.6-10.4) mg/dl Phosphorus 4.4 (2.5-4.5) mg/dL Magnesium 1.9 (1.6-2.3) mg/dL Total Bilirubin 0.3 (0.2-1.3) mg/dL AST 39 (17-59) U/L ALT 44 (21-72) U/L Alkaline Phosphatase 94 (38-126) U/L Total Protein 6.5 (6.3-8.3) g/dL Albumin 3.8 (3.5-5.0) g/dL Globulin 2.7 (2.2-3.9) gm/dL Albumin/Globulin Ratio 1.4 (1.0-2.1) 01/19/19 01/18/19 01/18/19 Range/Units 06:21 16:30 11:32 WBC (4.8-10.8) K/uL RBC (4.40-5.90) Mil/uL Hgb (12.0-18.0) g/dL Hct (35.0-51.0) % MCV (80.0-94.0) fL MCH (27.0-31.0) pg MCHC (33.0-37.0) g/dL RDW (11.5-14.5) % Plt Count (130-400) K/uL MPV (7.2-11.7) fL Neut % (Auto) (50.0-75.0) % Lymph % (Auto) (20.0-40.0) % Davis % (Auto) (0.0-10.0) % Eos % (Auto) (0.0-4.0) % Baso % (Auto) (0.0-2.0) % Neut # (Auto) (1.8-7.0) K/uL Lymph # (Auto) (1.0-4.3) K/uL Davis # (Auto) (0.0-0.8) K/uL Eos # (Auto) (0.0-0.7) K/uL Baso # (Auto) (0.0-0.2) K/uL APTT (21-34) SECONDS Sodium (132-148) mmol/L Potassium (3.6-5.2) mmol/L Chloride (98-107) mmol/L Carbon Dioxide (22-30) mmol/L Anion Gap (10-20) BUN (9-20) mg/dL Creatinine (0.8-1.5) mg/dL Est GFR ( Amer) Est GFR (Non-Af Amer) POC Glucose (mg/dL) 272 H 215 H 341 H (65-110) mg/dL Random Glucose (75-110) mg/dL Calcium (8.6-10.4) mg/dl Phosphorus (2.5-4.5) mg/dL Magnesium (1.6-2.3) mg/dL Total Bilirubin (0.2-1.3) mg/dL AST (17-59) U/L ALT (21-72) U/L Alkaline Phosphatase (38-126) U/L Total Protein (6.3-8.3) g/dL Albumin (3.5-5.0) g/dL Globulin (2.2-3.9) gm/dL Albumin/Globulin Ratio (1.0-2.1) Laboratory Results - last 24 hr 01/18/19 01/18/19 01/19/19 11:32 16:30 06:21 WBC RBC Hgb Hct MCV MCH MCHC RDW Plt Count MPV Neut % (Auto) Lymph % (Auto) Davis % (Auto) Eos % (Auto) Baso % (Auto) Neut # (Auto) Lymph # (Auto) Davis # (Auto) Eos # (Auto) Baso # (Auto) APTT Sodium Potassium Chloride Carbon Dioxide Anion Gap BUN Creatinine Est GFR ( Amer) Est GFR (Non-Af Amer) POC Glucose (mg/dL) 341 H 215 H 272 H Random Glucose Calcium Phosphorus Magnesium Total Bilirubin AST ALT Alkaline Phosphatase Total Protein Albumin Globulin Albumin/Globulin Ratio 01/21/19 01/21/19 01/21/19 06:07 06:09 06:09 WBC 11.2 H RBC 2.90 L Hgb 9.1 L Hct 26.7 L MCV 92.0 MCH 31.3 H MCHC 34.1 RDW 13.0 Plt Count 230 MPV 8.5 Neut % (Auto) 78.6 H Lymph % (Auto) 11.4 L Davis % (Auto) 7.2 Eos % (Auto) 2.2 Baso % (Auto) 0.6 Neut # (Auto) 8.8 H Lymph # (Auto) 1.3 Davis # (Auto) 0.8 Eos # (Auto) 0.2 Baso # (Auto) 0.1 APTT 36.8 H D Sodium 131 L Potassium 3.9 Chloride 95 L Carbon Dioxide 23 Anion Gap 17 BUN 48 H Creatinine 7.7 H* D Est GFR ( Amer) 9 Est GFR (Non-Af Amer) 7 POC Glucose (mg/dL) Random Glucose 140 H Calcium 8.6 Phosphorus 4.4 Magnesium 1.9 Total Bilirubin 0.3 AST 39 ALT 44 Alkaline Phosphatase 94 Total Protein 6.5 Albumin 3.8 Globulin 2.7 Albumin/Globulin Ratio 1.4 Fingerstick Blood Sugar Results: 131 Review of Systems - Review of Systems Review of Systems: per HPI Critical Care Progress Note - Nutrition Nutrition: Nutrition Category Date Time Status Heart Healthy Diet [DIET] Diets 01/21/19 Lunch Active Assessment/Plan - Assessment and Plan (Free Text) Assessment: 58 y/o M with PMH CRI now ESRD likely 2/2 diabetic nephropathy 2/2 uncontrolled DM, newly diagnosed CAD, HTN, HLD, hyperuricemia, gout transferred to ICU today for monitoring of critical LAD disease with initiation of heparin drip, loading dose plavix, aspirin, statin. Pt is s/p LHC, coronary angiogram with ARASH placement in LAD Plan: Neuro: AxO x 3 GCS 15 CV NSTEMI -Currently no chest pain, SOB, diaphoresis -s/p PCI with ARASH in LAD -Cardiac cath 01/19: 1. L main: patent 2. LAD: prox 80%, Mid 99% 3. L Cx/OM: patent 4. RCA: Dominant, Distal 60% 5. EF: 60%, EDP 24 -discontinue heparin gtt -plavix daily for 1 year -ASA, statin, b-emilie CLARA-i for life HTN -BP controlled in 140s/70s -c/w amlodipine 10qd, losartan 25mg qd, hydralazine 10Q8 /Renal ESRD on HD -s/p permcath placement for HD initiation -c/w dialysis sessions per nephrology recs -c/w phosphate binder: phoslo -c/w calcitriol -monitor UOP -Pt scheduled for AV fistula formation tomorrow am. NPO after MN. Pt to undergo HD today Endocrine DM -BS 200's -c/w insulin glargine 20u HS, glipizide 5mg, sitagliptin 25mg qd, -c/w insulin sliding scale -maintain euglycemia <180 per NICE-SUGAR trial Heme Anemia -Hgb improved with medication mgmt -likely 2/2 CKD -c/w procrit -c/w ferric sodium gluconate DVT/GI PPX: heparin/pepcid Dispo: Pt to undergo AV fistula formation in OR tomorrow. NPO after midnight Case reviewed with attending physician, Dr. Ervin De La Cruz PGY1 <Santana Mueller - Last Filed: 01/21/19 18:03> CCU Subjective - Physician Review Critical Care Time Spent (in minutes): 45 CCU Objective - Vital Signs / Intake & Output Vital Signs (Last 4 hours): Vital Signs Temp Pulse Pulse Resp BP BP Pulse Ox 01/21/19 17:50 148/86 01/21/19 17:44 89 19 148/86 100 01/21/19 17:35 160/87 H 01/21/19 17:29 89 18 160/87 H 99 01/21/19 17:20 157/86 H 01/21/19 17:14 89 19 157/86 H 99 01/21/19 17:05 126/78 01/21/19 17:00 92 H 19 126/78 100 01/21/19 16:50 119/65 01/21/19 16:44 87 16 119/65 100 01/21/19 16:35 130/74 01/21/19 16:29 89 17 130/74 100 01/21/19 16:20 155/80 H 01/21/19 16:14 87 15 155/80 H 100 01/21/19 16:05 162/83 H 01/21/19 16:00 97.5 F L 89 18 100 01/21/19 15:59 88 17 162/83 H 100 01/21/19 15:50 161/85 H 01/21/19 15:44 89 21 161/85 H 98 01/21/19 15:35 97.5 F L 93 H 15 143/68 99 01/21/19 15:30 97.5 F L 93 H 15 163/83 H 01/21/19 15:29 94 H 17 143/68 98 01/21/19 15:28 93 H 17 99 01/21/19 15:06 89 13 163/83 H 99 01/21/19 15:00 98.5 F 91 H 23 163/83 H 99 01/21/19 14:54 91 H 12 140/77 01/21/19 14:53 91 H Intake and Output (Last 8hrs): Intake & Output 01/21/19 01/21/19 01/21/19 06:59 14:59 22:59 Intake Total 5.7 350 Output Total 300 450 Balance -294.3 -100 Weight 140 lb Intake: IV 0 Intake, IV Amount 5.7 0 Right Forearm 0 Right Upper arm 5.7 0 Oral 350 Output: Urine 300 450 Urine, Voided 300 450 Other: # Voids Urine, Voided 2 0 # Bowel Movements 0 - Medications Active Medications: Active Medications Generic Name Dose Route Start Last Admin Trade Name Aryanq PRN Reason Stop Dose Admin Amlodipine Besylate 10 mg 01/15/19 10:00 01/21/19 09:38 Norvasc PO Not Given DAILY [facility] Aspirin 81 mg 01/20/19 10:00 01/21/19 09:37 Ecotrin PO Not Given DAILY [facility] Calcitriol 0.25 mcg 01/17/19 10:00 01/21/19 09:39 Rocaltrol PO Not Given DAILY [facility] Calcium Acetate 667 mg 01/16/19 12:00 01/21/19 17:17 Phoslo PO 667 mg TIDCC [facility] Administration Carvedilol 6.25 mg 01/17/19 19:55 01/21/19 17:17 Coreg PO 6.25 mg BID [facility] Administration Clopidogrel Bisulfate 75 mg 01/20/19 10:00 01/21/19 09:39 Plavix PO Not Given DAILY [facility] Epoetin Venu 10,000 unit 01/16/19 17:30 01/19/19 16:53 Procrit IV 10,000 unit MWF [facility] Administration Famotidine 20 mg 01/21/19 10:00 01/21/19 09:39 Pepcid PO Not Given DAILY [facility] Ferric Sodium Gluconate Complex 125 mg 01/16/19 12:30 01/21/19 17:17 Ferrlecit IVPB 01/22/19 12:31 125 mg DAILY [facility] Administration Glipizide 5 mg 01/18/19 07:30 01/21/19 09:38 Glucotrol PO Not Given ACB [facility] Heparin Sodium (Porcine) 5,000 units 01/21/19 18:00 01/21/19 17:16 Heparin SC 5,000 units BID [facility] Administration Hydralazine HCl 10 mg 01/17/19 22:00 01/21/19 14:11 Apresoline PO Not Given Q8 [facility] Insulin Glargine 20 unit 01/17/19 22:00 01/20/19 22:09 Lantus SC 20 unit HS [facility] Administration Insulin Human Regular 0 unit 01/15/19 07:30 01/21/19 17:17 Novolin R SC Not Given ACHS [facility] Protocol Losartan Potassium 25 mg 01/18/19 10:00 01/21/19 09:40 Cozaar PO Not Given DAILY [facility] Rosuvastatin Calcium 40 mg 01/19/19 22:00 01/20/19 22:09 Crestor PO 40 mg HS [facility] Administration Sitagliptin Phosphate 25 mg 01/18/19 10:00 01/21/19 09:38 Januvia PO Not Given DAILY [facility] - Patient Studies Lab Studies: Lab Studies 01/21/19 01/21/19 01/21/19 Range/Units 06:09 06:09 06:07 WBC 11.2 H (4.8-10.8) K/uL RBC 2.90 L (4.40-5.90) Mil/uL Hgb 9.1 L (12.0-18.0) g/dL Hct 26.7 L (35.0-51.0) % MCV 92.0 (80.0-94.0) fL MCH 31.3 H (27.0-31.0) pg MCHC 34.1 (33.0-37.0) g/dL RDW 13.0 (11.5-14.5) % Plt Count 230 (130-400) K/uL MPV 8.5 (7.2-11.7) fL Neut % (Auto) 78.6 H (50.0-75.0) % Lymph % (Auto) 11.4 L (20.0-40.0) % Davis % (Auto) 7.2 (0.0-10.0) % Eos % (Auto) 2.2 (0.0-4.0) % Baso % (Auto) 0.6 (0.0-2.0) % Neut # (Auto) 8.8 H (1.8-7.0) K/uL Lymph # (Auto) 1.3 (1.0-4.3) K/uL Davis # (Auto) 0.8 (0.0-0.8) K/uL Eos # (Auto) 0.2 (0.0-0.7) K/uL Baso # (Auto) 0.1 (0.0-0.2) K/uL APTT 36.8 H D (21-34) SECONDS Sodium 131 L (132-148) mmol/L Potassium 3.9 (3.6-5.2) mmol/L Chloride 95 L (98-107) mmol/L Carbon Dioxide 23 (22-30) mmol/L Anion Gap 17 (10-20) BUN 48 H (9-20) mg/dL Creatinine 7.7 H* D (0.8-1.5) mg/dL Est GFR ( Amer) 9 Est GFR (Non-Af Amer) 7 Random Glucose 140 H (75-110) mg/dL Calcium 8.6 (8.6-10.4) mg/dl Phosphorus 4.4 (2.5-4.5) mg/dL Magnesium 1.9 (1.6-2.3) mg/dL Total Bilirubin 0.3 (0.2-1.3) mg/dL AST 39 (17-59) U/L ALT 44 (21-72) U/L Alkaline Phosphatase 94 (38-126) U/L Total Protein 6.5 (6.3-8.3) g/dL Albumin 3.8 (3.5-5.0) g/dL Globulin 2.7 (2.2-3.9) gm/dL Albumin/Globulin Ratio 1.4 (1.0-2.1) Laboratory Results - last 24 hr 01/21/19 01/21/19 01/21/19 06:07 06:09 06:09 WBC 11.2 H RBC 2.90 L Hgb 9.1 L Hct 26.7 L MCV 92.0 MCH 31.3 H MCHC 34.1 RDW 13.0 Plt Count 230 MPV 8.5 Neut % (Auto) 78.6 H Lymph % (Auto) 11.4 L Davis % (Auto) 7.2 Eos % (Auto) 2.2 Baso % (Auto) 0.6 Neut # (Auto) 8.8 H Lymph # (Auto) 1.3 Davis # (Auto) 0.8 Eos # (Auto) 0.2 Baso # (Auto) 0.1 APTT 36.8 H D Sodium 131 L Potassium 3.9 Chloride 95 L Carbon Dioxide 23 Anion Gap 17 BUN 48 H Creatinine 7.7 H* D Est GFR ( Amer) 9 Est GFR (Non-Af Amer) 7 Random Glucose 140 H Calcium 8.6 Phosphorus 4.4 Magnesium 1.9 Total Bilirubin 0.3 AST 39 ALT 44 Alkaline Phosphatase 94 Total Protein 6.5 Albumin 3.8 Globulin 2.7 Albumin/Globulin Ratio 1.4 Critical Care Progress Note - Nutrition Nutrition: Nutrition Category Date Time Status Heart Healthy Diet [DIET] Diets 01/21/19 Lunch Active NPO Diet [DIET] Diets 01/22/19 Breakfast Active Attending/Attestation - Attestation I have personally seen and examined this patient.: Yes I have fully participated in the care of the patient.: Yes I have reviewed all pertinent clinical information: Yes Notes (Text): 01/21/19 18:02 Patient seen and examined in the intensive care unit. Status post drug-eluting stent placement today Continue Plavix and aspirin For AV fistula placement tomorrow Continue with hemodialysis Transfer to floor
--- NOTE | 2019-01-21 17:09 | CP.PCM.PN ---
Subjective - Date & Time of Evaluation Date of Evaluation: 01/21/19 Time of Evaluation: 16:30 - Subjective Subjective: Vascular surgery progress note for Dr. Mode Dawkins, PGY-2 Pt seen/examined at bedside. Pt resting comfortably in bed receiving HD. No current complaints. Returned from [facility] [place] after cardiac catherization, cleared for OR for AVF by cardiology. Objective - Vital Signs/Intake and Output Vital Signs (last 24 hours): Temp Pulse Resp BP Pulse Ox 97.5 F L 87 15 119/65 100 01/21/19 16:00 01/21/19 16:14 01/21/19 16:14 01/21/19 16:50 01/21/19 16:14 Intake and Output: 01/21/19 01/21/19 06:59 18:59 Intake Total 22.8 150 Output Total 400 450 Balance -377.2 -300 - Medications Medications: Current Medications Amlodipine Besylate (Norvasc) 10 mg PO DAILY [facility] Last Admin: 01/21/19 09:38 Dose: Not Given Aspirin (Ecotrin) 81 mg PO DAILY [facility] Last Admin: 01/21/19 09:37 Dose: Not Given Calcitriol (Rocaltrol) 0.25 mcg PO DAILY [facility] Last Admin: 01/21/19 09:39 Dose: Not Given Calcium Acetate (Phoslo) 667 mg PO TIDCC [facility] Last Admin: 01/21/19 11:55 Dose: Not Given Carvedilol (Coreg) 6.25 mg PO BID [facility] Last Admin: 01/21/19 09:37 Dose: Not Given Clopidogrel Bisulfate (Plavix) 75 mg PO DAILY [facility] Last Admin: 01/21/19 09:39 Dose: Not Given Epoetin Venu (Procrit) 10,000 unit IV MWF [facility] Last Admin: 01/19/19 16:53 Dose: 10,000 unit Famotidine (Pepcid) 20 mg PO DAILY [facility] Last Admin: 01/21/19 09:39 Dose: Not Given Ferric Sodium Gluconate Complex (Ferrlecit) 125 mg IVPB DAILY [facility] Stop: 01/22/19 12:31 Last Admin: 01/20/19 09:44 Dose: 125 mg Glipizide (Glucotrol) 5 mg PO ACB [facility] Last Admin: 01/21/19 09:38 Dose: Not Given Heparin Sodium (Porcine) (Heparin) 5,000 units SC BID [facility] Hydralazine HCl (Apresoline) 10 mg PO Q8 [facility] Last Admin: 01/21/19 14:11 Dose: Not Given Insulin Glargine (Lantus) 20 unit SC HS [facility] Last Admin: 01/20/19 22:09 Dose: 20 unit Insulin Human Regular (Novolin R) 0 unit SC [facility]; Protocol Last Admin: 01/21/19 11:55 Dose: Not Given Losartan Potassium (Cozaar) 25 mg PO DAILY [facility] Last Admin: 01/21/19 09:40 Dose: Not Given Rosuvastatin Calcium (Crestor) 40 mg PO HS [facility] Last Admin: 01/20/19 22:09 Dose: 40 mg Sitagliptin Phosphate (Januvia) 25 mg PO DAILY [facility] Last Admin: 01/21/19 09:38 Dose: Not Given - Labs Labs: 01/21/19 06:09 01/21/19 06:07 PT 10.8 SECONDS (9.7-12.2) 01/19/19 12:49 INR 1.0 01/19/19 12:49 APTT 36.8 SECONDS (21-34) H D 01/21/19 06:09 - Constitutional Appears: Non-toxic, No Acute Distress - Head Exam Head Exam: ATRAUMATIC, NORMAL INSPECTION, NORMOCEPHALIC - Eye Exam Eye Exam: EOMI, Normal appearance - ENT Exam ENT Exam: Mucous Membranes Moist, Normal Exam - Neck Exam Neck Exam: Full ROM, Normal Inspection - Respiratory Exam Respiratory Exam: NORMAL BREATHING PATTERN. absent: Chest Wall Tenderness Additional comments: Right chest wall with permacath in place - Cardiovascular Exam Cardiovascular Exam: REGULAR RHYTHM, +S1, +S2 - Extremities Exam Extremities Exam: Normal Inspection - Neurological Exam Neurological Exam: Alert, Awake, CN II-XII Intact, Oriented x3 - Psychiatric Exam Psychiatric exam: Normal Affect, Normal Mood - Skin Skin Exam: Dry, Intact, Normal Color, Warm Assessment and Plan - Assessment and Plan (Free Text) Assessment: 58M w/ESRD on HD, requiring snf access Plan: NPO pMN Consent in chart FU AM labs Plan for OR for AVF creation 01/22 LUE precautions Further care as per primary team DW Dr. Amna Dawkins, PGY-2
[2019-01-21] MEDS: Epoetin Alfa 10,000 unit/ml Dialysis IV SCH (18:39)
[2019-01-21] MEDS: (Lantus) Insulin Glargine, Recombinant SC SCH (21:39)
[2019-01-22 06:05] LABS: HEMOGLOBIN 8.7 g/dL (12.0-18.0); MEAN CELL VOLUME 92.7 fL (80.0-94.0); MEAN CORPUSCULAR HEMOGLOBIN 31.5 pg (27.0-31.0); MEAN PLATELET VOLUME 8.5 fL (7.2-11.7); RBC 2.76 Mil/uL (4.40-5.90); RED CELL DISTRIBUTION WIDTH 12.9 % (11.5-14.5); WHITE BLOOD COUNT 8.8 K/uL (4.8-10.8)
[2019-01-22 06:14] LABS: CALCIUM 8.3 mg/dl (8.6-10.4)
[2019-01-22 06:24] LABS: INR 1.1; PARTIAL THROMBOPLASTIN TIME 38.5 SECONDS (21-34); PROTHROMBIN TIME 12.1 SECONDS (9.7-12.2)
[2019-01-22] MEDS: (Novolin R) Insulin Human Regular 100 units/ml vial SC SCH ×4 (07:31→21:38)
[2019-01-22] MEDS: Ferric Sodium Gluconat Complex 62.5 mg/5 ml Vial IVPB SCH (09:01)
--- NOTE | 2019-01-22 09:22 | CP.PCM.PN ---
Subjective - Date & Time of Evaluation Date of Evaluation: 01/22/19 Time of Evaluation: 09:20 - Subjective Subjective: s/p LAD stent post dialysis last PM comfortable; no dyspnea, CPs, fevers, chills, nausea HTN controlled Hg low-8.7- on ESAs, IV Fe Objective - Vital Signs/Intake and Output Vital Signs (last 24 hours): Temp Pulse Resp BP Pulse Ox 98.4 F 94 H 13 142/73 95 01/22/19 08:00 01/22/19 09:00 01/22/19 09:00 01/22/19 08:21 01/22/19 09:00 Intake and Output: 01/22/19 01/22/19 06:59 18:59 Intake Total 20 0 Output Total 175 Balance -155 0 - Medications Medications: Current Medications Amlodipine Besylate (Norvasc) 10 mg PO DAILY [facility] Last Admin: 01/22/19 09:02 Dose: 10 mg Aspirin (Ecotrin) 81 mg PO DAILY [facility] Last Admin: 01/22/19 09:02 Dose: 81 mg Calcitriol (Rocaltrol) 0.25 mcg PO DAILY [facility] Last Admin: 01/22/19 09:02 Dose: 0.25 mcg Calcium Acetate (Phoslo) 667 mg PO TIDCC [facility] Last Admin: 01/22/19 07:32 Dose: Not Given Carvedilol (Coreg) 6.25 mg PO BID [facility] Last Admin: 01/22/19 09:02 Dose: 6.25 mg Clopidogrel Bisulfate (Plavix) 75 mg PO DAILY [facility] Last Admin: 01/22/19 09:02 Dose: 75 mg Epoetin Venu (Procrit) 10,000 unit IV MWF [facility] Last Admin: 01/21/19 18:39 Dose: 10,000 unit Famotidine (Pepcid) 20 mg PO DAILY [facility] Last Admin: 01/22/19 09:02 Dose: 20 mg Ferric Sodium Gluconate Complex (Ferrlecit) 125 mg IVPB DAILY [facility] Stop: 01/22/19 12:31 Last Admin: 01/22/19 09:01 Dose: 125 mg Glipizide (Glucotrol) 5 mg PO ACB [facility] Last Admin: 01/22/19 07:31 Dose: Not Given Heparin Sodium (Porcine) (Heparin) 5,000 units SC BID [facility] Last Admin: 01/21/19 17:16 Dose: 5,000 units Hydralazine HCl (Apresoline) 10 mg PO Q8 [facility] Last Admin: 01/22/19 06:23 Dose: 10 mg Insulin Glargine (Lantus) 20 unit SC HS [facility] Last Admin: 01/21/19 21:39 Dose: Not Given Insulin Human Regular (Novolin R) 0 unit SC [facility]; Protocol Last Admin: 01/22/19 07:31 Dose: Not Given Losartan Potassium (Cozaar) 25 mg PO DAILY [facility] Last Admin: 01/22/19 09:02 Dose: 25 mg Rosuvastatin Calcium (Crestor) 10 mg PO [facility] Sitagliptin Phosphate (Januvia) 25 mg PO DAILY [facility] Last Admin: 01/22/19 09:01 Dose: 25 mg - Labs Labs: 01/22/19 05:51 01/22/19 05:48 PT 12.1 SECONDS (9.7-12.2) 01/22/19 05:51 INR 1.1 01/22/19 05:51 APTT 38.5 SECONDS (21-34) H 01/22/19 05:51 - Constitutional Appears: No Acute Distress, Chronically Ill - Head Exam Head Exam: ATRAUMATIC, NORMAL INSPECTION - Eye Exam Eye Exam: EOMI, Normal appearance - Neck Exam Neck Exam: Normal Inspection. absent: Tenderness - Respiratory Exam Respiratory Exam: Clear to Ausculation Bilateral, NORMAL BREATHING PATTERN - Cardiovascular Exam Cardiovascular Exam: REGULAR RHYTHM, +S1 - GI/Abdominal Exam GI & Abdominal Exam: Soft. absent: Tenderness - Extremities Exam Extremities Exam: Normal Inspection. 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
--- NOTE | 2019-01-22 10:13 | CP.PCM.PN ---
<Rafat Sheppard - Last Filed: 01/22/19 18:16> Subjective - Date & Time of Evaluation Date of Evaluation: 01/22/19 Time of Evaluation: 18:17 - Subjective Subjective: PGY2 Cardiology Note for Dr. Mujica Patient seen and examined this morning at bedside. No acute events overnight. Patient had successful AV fistula creation today. Patient has no complaints at this time. Objective - Vital Signs/Intake and Output Vital Signs (last 24 hours): Temp Pulse Resp BP Pulse Ox 98.4 F 94 H 13 142/73 95 01/22/19 08:00 01/22/19 09:00 01/22/19 09:00 01/22/19 08:21 01/22/19 09:00 Intake and Output: 01/22/19 01/22/19 06:59 18:59 Intake Total 20 0 Output Total 175 Balance -155 0 - Medications Medications: Current Medications Amlodipine Besylate (Norvasc) 10 mg PO DAILY [facility] Last Admin: 01/22/19 09:02 Dose: 10 mg Aspirin (Ecotrin) 81 mg PO DAILY [facility] Last Admin: 01/22/19 09:02 Dose: 81 mg Calcitriol (Rocaltrol) 0.25 mcg PO DAILY [facility] Last Admin: 01/22/19 09:02 Dose: 0.25 mcg Calcium Acetate (Phoslo) 667 mg PO TIDCC [facility] Last Admin: 01/22/19 07:32 Dose: Not Given Carvedilol (Coreg) 6.25 mg PO BID [facility] Last Admin: 01/22/19 09:02 Dose: 6.25 mg Clopidogrel Bisulfate (Plavix) 75 mg PO DAILY [facility] Last Admin: 01/22/19 09:02 Dose: 75 mg Epoetin Venu (Procrit) 10,000 unit IV MWF [facility] Last Admin: 01/21/19 18:39 Dose: 10,000 unit Famotidine (Pepcid) 20 mg PO DAILY [facility] Last Admin: 01/22/19 09:02 Dose: 20 mg Ferric Sodium Gluconate Complex (Ferrlecit) 125 mg IVPB DAILY [facility] Stop: 01/22/19 12:31 Last Admin: 01/22/19 09:01 Dose: 125 mg Glipizide (Glucotrol) 5 mg PO ACB [facility] Last Admin: 01/22/19 07:31 Dose: Not Given Heparin Sodium (Porcine) (Heparin) 5,000 units SC BID [facility] Last Admin: 01/21/19 17:16 Dose: 5,000 units Hydralazine HCl (Apresoline) 10 mg PO Q8 [facility] Last Admin: 01/22/19 06:23 Dose: 10 mg Insulin Glargine (Lantus) 20 unit SC HS [facility] Last Admin: 01/21/19 21:39 Dose: Not Given Insulin Human Regular (Novolin R) 0 unit SC ACHS [facility]; Protocol Last Admin: 01/22/19 07:31 Dose: Not Given Losartan Potassium (Cozaar) 25 mg PO DAILY [facility] Last Admin: 01/22/19 09:02 Dose: 25 mg Rosuvastatin Calcium (Crestor) 10 mg PO HS [facility] Sitagliptin Phosphate (Januvia) 25 mg PO DAILY [facility] Last Admin: 01/22/19 09:01 Dose: 25 mg - Labs Labs: 01/22/19 05:51 01/22/19 05:48 PT 12.1 SECONDS (9.7-12.2) 01/22/19 05:51 INR 1.1 01/22/19 05:51 APTT 38.5 SECONDS (21-34) H 01/22/19 05:51 - Constitutional Appears: Non-toxic, No Acute Distress - Head Exam Head Exam: ATRAUMATIC, NORMOCEPHALIC - Eye Exam Eye Exam: Normal appearance - Neck Exam Additional comments: R IJ permacath in place - Respiratory Exam Respiratory Exam: Clear to Ausculation Bilateral, NORMAL BREATHING PATTERN. absent: Rales, Rhonchi, Wheezes, Respiratory Distress - Cardiovascular Exam Cardiovascular Exam: REGULAR RHYTHM, +S1, +S2 - GI/Abdominal Exam GI & Abdominal Exam: Soft. absent: Distended, Firm, Guarding, Rigid, Tenderness - Extremities Exam Extremities Exam: absent: Calf Tenderness, Pedal Edema - Neurological Exam Neurological Exam: Alert, Awake - Psychiatric Exam Psychiatric exam: Normal Affect, Normal Mood - Skin Skin Exam: Dry, Warm Assessment and Plan - Assessment and Plan (Free Text) Plan: CAD Cardiac Cath 01/19/19: * 1. L main: patent * 2. LAD: prox 80%, Mid 99% * 3. L Cx/OM: patent * 4. RCA: Dominant, Distal 60% * 5. EF: 60%, EDP 24 s/p LAD stent (ARASH) placed on 01/21 Plavix 75mg daily for 1 year ASA, Statins, B blockers and CLARA I for life DVT/GI prophylaxis Continue current management at this time Case discussed with Dr. Guanako Sheppard PGY2 <Moses Mujica - Last Filed: 01/22/19 23:05> Objective - Vital Signs/Intake and Output Vital Signs (last 24 hours): Temp Pulse Resp BP Pulse Ox 98.1 F 97 H 20 136/71 94 L 01/22/19 20:00 01/22/19 22:00 01/22/19 22:00 01/22/19 21:47 01/22/19 22:00 Intake and Output: 01/22/19 01/23/19 18:59 06:59 Intake Total 250 70 Output Total 175 Balance 250 -105 - Medications Medications: Current Medications Acetaminophen (Tylenol 325mg Tab) 650 mg PO Q6 PRN PRN Reason: Pain, Mild (1-3) Last Admin: 01/22/19 21:48 Dose: 650 mg Amlodipine Besylate (Norvasc) 10 mg PO DAILY [facility] Last Admin: 01/22/19 09:02 Dose: 10 mg Aspirin (Ecotrin) 81 mg PO DAILY [facility] Last Admin: 01/22/19 09:02 Dose: 81 mg Calcitriol (Rocaltrol) 0.25 mcg PO DAILY [facility] Last Admin: 01/22/19 09:02 Dose: 0.25 mcg Calcium Acetate (Phoslo) 667 mg PO TIDCC [facility] Last Admin: 01/22/19 16:57 Dose: 667 mg Carvedilol (Coreg) 6.25 mg PO BID [facility] Last Admin: 01/22/19 17:00 Dose: 6.25 mg Clopidogrel Bisulfate (Plavix) 75 mg PO DAILY [facility] Last Admin: 01/22/19 09:02 Dose: 75 mg Epoetin Venu (Procrit) 10,000 unit IV MWF [facility] Last Admin: 01/21/19 18:39 Dose: 10,000 unit Famotidine (Pepcid) 20 mg PO DAILY [facility] Last Admin: 01/22/19 09:02 Dose: 20 mg Glipizide (Glucotrol) 5 mg PO ACB [facility] Last Admin: 01/22/19 07:31 Dose: Not Given Heparin Sodium (Porcine) (Heparin) 5,000 units SC BID [facility] Last Admin: 01/21/19 17:16 Dose: 5,000 units Hydralazine HCl (Apresoline) 10 mg PO Q8 [facility] Last Admin: 01/22/19 21:42 Dose: 10 mg Insulin Glargine (Lantus) 20 unit SC HS [facility] Last Admin: 01/22/19 21:42 Dose: 20 unit Insulin Human Regular (Novolin R) 0 unit SC ACHS [facility]; Protocol Last Admin: 01/22/19 21:38 Dose: Not Given Losartan Potassium (Cozaar) 25 mg PO DAILY [facility] Last Admin: 01/22/19 09:02 Dose: 25 mg Rosuvastatin Calcium (Crestor) 10 mg PO HS [facility] Last Admin: 01/22/19 21:42 Dose: 10 mg Sitagliptin Phosphate (Januvia) 25 mg PO DAILY [facility] Last Admin: 01/22/19 09:01 Dose: 25 mg Tramadol HCl (Ultram) 25 mg PO TID PRN PRN Reason: Pain, moderate (4-7) - Labs Labs: 01/22/19 05:51 01/22/19 05:48 PT 12.1 SECONDS (9.7-12.2) 01/22/19 05:51 INR 1.1 01/22/19 05:51 APTT 38.5 SECONDS (21-34) H 01/22/19 05:51 Assessment and Plan - Assessment and Plan (Free Text) Plan: Patient seen and evaluated personally by me. Plan of care d/w the medical insurance collector and as documented
[2019-01-22] MEDS ORDERED: HEPARIN-NS 5,000 UNITS/500 ML 5,000 UNIT/500 ML BAG IV ONE (13:21)
[2019-01-22] MEDS ORDERED: ceFAZolin 1 gm in NS 2 GM/200 ML BAG IVPB ONE (13:21)
[2019-01-22] MEDS ORDERED: Midazolam 2 MG/2 ML VIAL ONE (13:41)
[2019-01-22] MEDS ORDERED: Propofol 10 mg/ml Inj (20 ML) ONE (13:41)
[2019-01-22] MEDS ORDERED: Etomidate 20 mg/10ml Inj IV ONE (14:20)
--- NOTE | 2019-01-22 15:32 | CP.CCUPN ---
<Jeremías Ram - Last Filed: 01/22/19 16:07> CCU Objective - Vital Signs / Intake & Output Vital Signs (Last 4 hours): Vital Signs Temp Pulse Resp BP Pulse Ox 01/22/19 16:00 98.9 F 90 19 93 L 01/22/19 15:50 89 12 107/54 L 96 01/22/19 15:34 91 H 13 111/66 01/22/19 15:33 90 13 01/22/19 13:21 90 20 120/57 L 93 L 01/22/19 13:00 90 20 94 L 01/22/19 12:21 93 H 16 135/69 95 Intake and Output (Last 8hrs): Intake & Output 01/22/19 01/22/19 01/22/19 06:59 14:59 22:59 Intake Total 0 50 0 Output Total 75 Balance -75 50 0 Weight 147 lb 4.8 oz Intake: IV 0 Intake, IV Amount 0 0 0 Right Forearm 0 0 0 Right Upper arm 0 0 0 Oral 0 50 0 Output: Urine 75 Urine, Voided 75 Other: # Voids Urine, Voided 0 0 0 # Bowel Movements 0 0 0 - Medications Active Medications: Active Medications Generic Name Dose Route Start Last Admin Trade Name Freq PRN Reason Stop Dose Admin Acetaminophen 650 mg 01/22/19 15:37 Tylenol 325mg Tab PO Q6 PRN Pain, Mild (1-3) Amlodipine Besylate 10 mg 01/15/19 10:00 01/22/19 09:02 Norvasc PO 10 mg DAILY [facility] Administration Aspirin 81 mg 01/20/19 10:00 01/22/19 09:02 Ecotrin PO 81 mg DAILY [facility] Administration Calcitriol 0.25 mcg 01/17/19 10:00 01/22/19 09:02 Rocaltrol PO 0.25 mcg DAILY [facility] Administration Calcium Acetate 667 mg 01/16/19 12:00 01/22/19 11:39 Phoslo PO Not Given TIDCC [facility] Carvedilol 6.25 mg 01/17/19 19:55 01/22/19 09:02 Coreg PO 6.25 mg BID [facility] Administration Clopidogrel Bisulfate 75 mg 01/20/19 10:00 01/22/19 09:02 Plavix PO 75 mg DAILY [facility] Administration Epoetin Venu 10,000 unit 01/16/19 17:30 01/21/19 18:39 Procrit IV 10,000 unit MWF [facility] Administration Famotidine 20 mg 01/21/19 10:00 01/22/19 09:02 Pepcid PO 20 mg DAILY [facility] Administration Glipizide 5 mg 01/18/19 07:30 01/22/19 07:31 Glucotrol PO Not Given ACB [facility] Heparin Sodium (Porcine) 5,000 units 01/21/19 18:00 01/21/19 17:16 Heparin SC 5,000 units BID [facility] Administration Hydralazine HCl 10 mg 01/17/19 22:00 01/22/19 15:51 Apresoline PO Not Given Q8 [facility] Insulin Glargine 20 unit 01/17/19 22:00 01/21/19 21:39 Lantus SC Not Given HS [facility] Insulin Human Regular 0 unit 01/15/19 07:30 01/22/19 11:39 Novolin R SC Not Given ACHS [facility] Protocol Losartan Potassium 25 mg 01/18/19 10:00 01/22/19 09:02 Cozaar PO 25 mg DAILY [facility] Administration Rosuvastatin Calcium 10 mg 01/22/19 22:00 Crestor PO HS [facility] Sitagliptin Phosphate 25 mg 01/18/19 10:00 01/22/19 09:01 Januvia PO 25 mg DAILY [facility] Administration Tramadol HCl 25 mg 01/22/19 15:37 Ultram PO TID PRN Pain, moderate (4-7) - Patient Studies Lab Studies: Lab Studies 01/22/19 01/22/19 01/22/19 Range/Units 05:57 05:51 05:51 WBC 8.8 (4.8-10.8) K/uL RBC 2.76 L (4.40-5.90) Mil/uL Hgb 8.7 L (12.0-18.0) g/dL Hct 25.6 L (35.0-51.0) % MCV 92.7 (80.0-94.0) fL MCH 31.5 H (27.0-31.0) pg MCHC 34.0 (33.0-37.0) g/dL RDW 12.9 (11.5-14.5) % Plt Count 221 (130-400) K/uL MPV 8.5 (7.2-11.7) fL PT 12.1 (9.7-12.2) SECONDS INR 1.1 APTT 38.5 H (21-34) SECONDS Sodium (132-148) mmol/L Potassium (3.6-5.2) mmol/L Chloride (98-107) mmol/L Carbon Dioxide (22-30) mmol/L Anion Gap (10-20) BUN (9-20) mg/dL Creatinine (0.8-1.5) mg/dL Est GFR ( Amer) Est GFR (Non-Af Amer) Random Glucose (75-110) mg/dL Calcium (8.6-10.4) mg/dl Phosphorus (2.5-4.5) mg/dL Magnesium (1.6-2.3) mg/dL Blood Type A NEGATIVE Antibody Screen Negative 01/22/19 Range/Units 05:48 WBC (4.8-10.8) K/uL RBC (4.40-5.90) Mil/uL Hgb (12.0-18.0) g/dL Hct (35.0-51.0) % MCV (80.0-94.0) fL MCH (27.0-31.0) pg MCHC (33.0-37.0) g/dL RDW (11.5-14.5) % Plt Count (130-400) K/uL MPV (7.2-11.7) fL PT (9.7-12.2) SECONDS INR APTT (21-34) SECONDS Sodium 134 (132-148) mmol/L Potassium 4.6 (3.6-5.2) mmol/L Chloride 96 L (98-107) mmol/L Carbon Dioxide 28 (22-30) mmol/L Anion Gap 14 (10-20) BUN 28 H (9-20) mg/dL Creatinine 6.0 H (0.8-1.5) mg/dL Est GFR ( Amer) 12 Est GFR (Non-Af Amer) 10 Random Glucose 184 H D (75-110) mg/dL Calcium 8.3 L (8.6-10.4) mg/dl Phosphorus 3.7 (2.5-4.5) mg/dL Magnesium 2.0 (1.6-2.3) mg/dL Blood Type Antibody Screen Laboratory Results - last 24 hr 01/22/19 01/22/19 01/22/19 05:48 05:51 05:51 WBC 8.8 RBC 2.76 L Hgb 8.7 L Hct 25.6 L MCV 92.7 MCH 31.5 H MCHC 34.0 RDW 12.9 Plt Count 221 MPV 8.5 PT 12.1 INR 1.1 APTT 38.5 H Sodium 134 Potassium 4.6 Chloride 96 L Carbon Dioxide 28 Anion Gap 14 BUN 28 H Creatinine 6.0 H Est GFR ( Amer) 12 Est GFR (Non-Af Amer) 10 Random Glucose 184 H D Calcium 8.3 L Phosphorus 3.7 Magnesium 2.0 Blood Type Antibody Screen 01/22/19 05:57 WBC RBC Hgb Hct MCV MCH MCHC RDW Plt Count MPV PT INR APTT Sodium Potassium Chloride Carbon Dioxide Anion Gap BUN Creatinine Est GFR ( Amer) Est GFR (Non-Af Amer) Random Glucose Calcium Phosphorus Magnesium Blood Type A NEGATIVE Antibody Screen Negative Critical Care Progress Note - Nutrition Nutrition: Nutrition Category Date Time Status Renal Diet [DIET] Diets 01/22/19 Dinner Active Attending/Attestation - Attestation I have personally seen and examined this patient.: Yes I have fully participated in the care of the patient.: Yes I have reviewed all pertinent clinical information: Yes Notes (Text): 01/22/19 16:07 I have seen and examined the patient. Medical records, lab studies, and imaging were reviewed by me and a management plan was formulated on multidisciplinary rounds with resident Dr. Griggs. I agree with their documented assessment and plan. Patient underwent AV fistula while on ASA/Plavix for recent cardiac stent placement. Will monitor for any post-op bleeding. Critical Care Time 35 minutes. Multi-disciplinary rounds were performed with house staff, nursing, speech therapy, respiratory therapy, pharmacy and nutrition with integrated input from the primary team/attending and other consulting services. The documented time is cumulative and includes review of patient data/exams/labs/chart review and examination of the patient on rounds and throughout the day; time is exclusive of any procedures or teaching time. <Tootie Barnett - Last Filed: 01/22/19 18:18> CCU Subjective - Physician Review Subjective (Free Text): ICU PROGRESS NOTE FOR DR. LEANNA BARNETT PGY1 Pt seen and examined at bedside this am. PT underwent LUE AV fistula formation & tolerated procedure well w/ EBL 10ml. Pt denying 12 point ROS CCU Objective - Vital Signs / Intake & Output Vital Signs (Last 4 hours): Vital Signs Temp Pulse Resp BP Pulse Ox 01/22/19 13:21 90 20 120/57 L 93 L 01/22/19 13:00 90 20 94 L 01/22/19 12:21 93 H 16 135/69 95 01/22/19 12:00 98.6 F 92 H 20 95 Intake and Output (Last 8hrs): Intake & Output 01/22/19 01/22/19 01/22/19 06:59 14:59 22:59 Intake Total 0 50 Output Total 75 Balance -75 50 Weight 66.814 kg Intake: IV 0 Intake, IV Amount 0 0 Right Forearm 0 0 Right Upper arm 0 0 Oral 0 50 Output: Urine 75 Urine, Voided 75 Other: # Voids Urine, Voided 0 0 # Bowel Movements 0 0 - Physical Exam Head: Positive for: Atraumatic, Normocephalic Pupils: Positive for: PERRL Extroacular Muscles: Positive for: EOMI Conjunctiva: Positive for: Normal Mouth: Positive for: Moist Mucous Membranes Neck: Positive for: Normal Range of Motion, Other (R IJ permcath in place. No erythema/purulence) Respiratory/Chest: Positive for: Clear to Auscultation, Good Air Exchange Cardiovascular: Positive for: Regular Rate and Rhythm, Normal S1, S2 Abdomen: Positive for: Normal Bowel Sounds Upper Extremity: Positive for: Normal Inspection, Other (Dressing in place over L antecubital region) Lower Extremity: Positive for: Normal Inspection, Other (R groin dressing in place. No hematoma) Neurological: Positive for: GCS=15, CN II-XII Intact Skin: Positive for: Warm, Dry Psychiatric: Positive for: Alert, Oriented x 3 - Medications Active Medications: Active Medications Generic Name Dose Route Start Last Admin Trade Name Freq PRN Reason Stop Dose Admin Amlodipine Besylate 10 mg 01/15/19 10:00 01/22/19 09:02 Norvasc PO 10 mg DAILY [facility] Administration Aspirin 81 mg 01/20/19 10:00 01/22/19 09:02 Ecotrin PO 81 mg DAILY [facility] Administration Calcitriol 0.25 mcg 01/17/19 10:00 01/22/19 09:02 Rocaltrol PO 0.25 mcg DAILY [facility] Administration Calcium Acetate 667 mg 01/16/19 12:00 01/22/19 11:39 Phoslo PO Not Given TIDCC [facility] Carvedilol 6.25 mg 01/17/19 19:55 01/22/19 09:02 Coreg PO 6.25 mg BID [facility] Administration Clopidogrel Bisulfate 75 mg 01/20/19 10:00 01/22/19 09:02 Plavix PO 75 mg DAILY [facility] Administration Epoetin Venu 10,000 unit 01/16/19 17:30 01/21/19 18:39 Procrit IV 10,000 unit MWF [facility] Administration Famotidine 20 mg 01/21/19 10:00 01/22/19 09:02 Pepcid PO 20 mg DAILY [facility] Administration Glipizide 5 mg 01/18/19 07:30 01/22/19 07:31 Glucotrol PO Not Given ACB [facility] Heparin Sodium (Porcine) 5,000 units 01/21/19 18:00 01/21/19 17:16 Heparin SC 5,000 units BID [facility] Administration Hydralazine HCl 10 mg 01/17/19 22:00 01/22/19 06:23 Apresoline PO 10 mg Q8 [facility] Administration Insulin Glargine 20 unit 01/17/19 22:00 01/21/19 21:39 Lantus SC Not Given HS [facility] Insulin Human Regular 0 unit 01/15/19 07:30 01/22/19 11:39 Novolin R SC Not Given ACHS [facility] Protocol Losartan Potassium 25 mg 01/18/19 10:00 01/22/19 09:02 Cozaar PO 25 mg DAILY [facility] Administration Rosuvastatin Calcium 10 mg 01/22/19 22:00 Crestor PO HS [facility] Sitagliptin Phosphate 25 mg 01/18/19 10:00 01/22/19 09:01 Januvia PO 25 mg DAILY [facility] Administration - Patient Studies Lab Studies: Lab Studies 01/22/19 01/22/19 01/22/19 Range/Units 05:57 05:51 05:51 WBC 8.8 (4.8-10.8) K/uL RBC 2.76 L (4.40-5.90) Mil/uL Hgb 8.7 L (12.0-18.0) g/dL Hct 25.6 L (35.0-51.0) % MCV 92.7 (80.0-94.0) fL MCH 31.5 H (27.0-31.0) pg MCHC 34.0 (33.0-37.0) g/dL RDW 12.9 (11.5-14.5) % Plt Count 221 (130-400) K/uL MPV 8.5 (7.2-11.7) fL PT 12.1 (9.7-12.2) SECONDS INR 1.1 APTT 38.5 H (21-34) SECONDS Sodium (132-148) mmol/L Potassium (3.6-5.2) mmol/L Chloride (98-107) mmol/L Carbon Dioxide (22-30) mmol/L Anion Gap (10-20) BUN (9-20) mg/dL Creatinine (0.8-1.5) mg/dL Est GFR ( Amer) Est GFR (Non-Af Amer) Random Glucose (75-110) mg/dL Calcium (8.6-10.4) mg/dl Phosphorus (2.5-4.5) mg/dL Magnesium (1.6-2.3) mg/dL Blood Type A NEGATIVE Antibody Screen Negative 01/22/19 Range/Units 05:48 WBC (4.8-10.8) K/uL RBC (4.40-5.90) Mil/uL Hgb (12.0-18.0) g/dL Hct (35.0-51.0) % MCV (80.0-94.0) fL MCH (27.0-31.0) pg MCHC (33.0-37.0) g/dL RDW (11.5-14.5) % Plt Count (130-400) K/uL MPV (7.2-11.7) fL PT (9.7-12.2) SECONDS INR APTT (21-34) SECONDS Sodium 134 (132-148) mmol/L Potassium 4.6 (3.6-5.2) mmol/L Chloride 96 L (98-107) mmol/L Carbon Dioxide 28 (22-30) mmol/L Anion Gap 14 (10-20) BUN 28 H (9-20) mg/dL Creatinine 6.0 H (0.8-1.5) mg/dL Est GFR ( Amer) 12 Est GFR (Non-Af Amer) 10 Random Glucose 184 H D (75-110) mg/dL Calcium 8.3 L (8.6-10.4) mg/dl Phosphorus 3.7 (2.5-4.5) mg/dL Magnesium 2.0 (1.6-2.3) mg/dL Blood Type Antibody Screen Laboratory Results - last 24 hr 01/22/19 01/22/19 01/22/19 05:48 05:51 05:51 WBC 8.8 RBC 2.76 L Hgb 8.7 L Hct 25.6 L MCV 92.7 MCH 31.5 H MCHC 34.0 RDW 12.9 Plt Count 221 MPV 8.5 PT 12.1 INR 1.1 APTT 38.5 H Sodium 134 Potassium 4.6 Chloride 96 L Carbon Dioxide 28 Anion Gap 14 BUN 28 H Creatinine 6.0 H Est GFR ( Amer) 12 Est GFR (Non-Af Amer) 10 Random Glucose 184 H D Calcium 8.3 L Phosphorus 3.7 Magnesium 2.0 Blood Type Antibody Screen 01/22/19 05:57 WBC RBC Hgb Hct MCV MCH MCHC RDW Plt Count MPV PT INR APTT Sodium Potassium Chloride Carbon Dioxide Anion Gap BUN Creatinine Est GFR ( Amer) Est GFR (Non-Af Amer) Random Glucose Calcium Phosphorus Magnesium Blood Type A NEGATIVE Antibody Screen Negative Fingerstick Blood Sugar Results: 185 Review of Systems - Review of Systems Review of Systems: per HPI Critical Care Progress Note - Nutrition Nutrition: Nutrition Category Date Time Status NPO Diet [DIET] Diets 01/22/19 Breakfast Active Assessment/Plan - Assessment and Plan (Free Text) Assessment: 58 y/o M with PMH CRI now ESRD likely 2/2 diabetic nephropathy 2/2 uncontrolled DM, newly diagnosed CAD, HTN, HLD, hyperuricemia, gout transferred to ICU today for monitoring of critical LAD disease with initiation of heparin drip, loading dose plavix, aspirin, statin. Pt is s/p LHC, coronary angiogram with ARASH placement in LAD 01/21 & LUE AV fistula formation 01/22 Plan: Neuro: AxO x 3 GCS 15 CV NSTEMI -Currently no chest pain, SOB, diaphoresis -s/p PCI with ARASH in LAD 01/22 -Cardiac cath 01/19: 1. L main: patent 2. LAD: prox 80%, Mid 99% 3. L Cx/OM: patent 4. RCA: Dominant, Distal 60% 5. EF: 60%, EDP 24 -plavix daily for 1 year -ASA, statin, b-emilie CLARA-i for life HTN -BP controlled in 120-130ss/70s -c/w amlodipine 10qd, losartan 25mg qd, hydralazine 10Q8 /Renal ESRD on HD -s/p RJ permcath placement for HD initiation. s/p LUE AV fistula formation -c/w dialysis sessions per nephrology recs -c/w phosphate binder: phoslo -c/w calcitriol -monitor UOP Endocrine DM -BS 200's -c/w insulin glargine 20u HS, glipizide 5mg, sitagliptin 25mg qd, -c/w insulin sliding scale -maintain euglycemia <180 per NICE-SUGAR trial Heme Anemia -Hgb improved with medication mgmt -likely 2/2 CKD -c/w procrit -c/w ferric sodium gluconate DVT/GI PPX: will resume heparin SC upon surgery recs/SCD/pepcid Case reviewed with attending physician, Dr. Leanna Barnett PGY1
--- NOTE | 2019-01-22 15:36 | PCM.SURG1 ---
Surgeon's Initial Post Op Note - Surgeon's Notes Surgeon: Anoop Woo MD [place] Manager: Alexandria Dawkins, PGY-2; Palmer Milian OMS-III Type of Anesthesia: General LMA Anesthesia Administered By: Dr Delarosa Pre-Operative Diagnosis: ESRD requiring fci HD Operative Findings: See op report Post-Operative Diagnosis: ESRD requiring fci HD Operation Performed: LUE AVF creation Specimen/Specimens Removed: None Estimated Blood Loss: EBL {In ML}: 10 Blood Products Given: N/A Drains Used: No Drains Post-Op Condition: Good Date of Surgery/Procedure: 01/22/19 Time of Surgery/Procedure: 15:35
[2019-01-22] MEDS ORDERED: Tramadol 25 mg PO PRN (15:37)
[2019-01-22] MEDS: (Lantus) Insulin Glargine, Recombinant SC SCH (21:42)
--- NOTE | 2019-01-23 00:36 | OP ---
PROCEDURE DATE: 01/22/2019 PREOPERATIVE DIAGNOSIS: Renal failure. POSTOPERATIVE DIAGNOSIS: Renal failure. PROCEDURE CARRIED OUT: Left arm brachiocephalic fistula. SURGEON: Anoop Woo Jr., MD REGIONAL CLINICAL DIRECTOR: Alexandria Dawkins DO ANESTHESIOLOGIST: Dr. Delarosa. INDICATIONS: The patient is a 58-year-old male with variety of recent cardiac interventions, just started on dialysis, requires a fistula for access. OPERATIVE FINDINGS: Fistula was placed uneventfully DESCRIPTION OF PROCEDURE: The patient was given general anesthesia, intravenous antibiotics. We almost prepped and draped. Standard incision made based on markings. The fistula was then created using loop magnification and heparin anticoagulation. At the end of this, there was good flow to the fistula, and perfusion is reversed. OPERATION CARRIED OUT: Brachiocephalic fistula, left elbow. Anoop Woo Jr., MD
[2019-01-23 06:09] LABS: BASO % 0.6 % (0.0-2.0); EOS # 0.3 K/uL (0.0-0.7); EOS % 3.8 % (0.0-4.0); HEMOGLOBIN 8.3 g/dL (12.0-18.0); LYMPH # 1.1 K/uL (1.0-4.3); LYMPH % 14.2 % (20.0-40.0); MEAN CELL VOLUME 92.3 fL (80.0-94.0); MEAN CORPUSCULAR HGB CONC 34.7 g/dL (33.0-37.0); MEAN PLATELET VOLUME 8.7 fL (7.2-11.7); MONO # 0.7 K/uL (0.0-0.8); NEUT # 5.8 K/uL (1.8-7.0); NEUT % 72.4 % (50.0-75.0); NRBC % 0.1 % (0.0-2.0); RBC 2.59 Mil/uL (4.40-5.90); RED CELL DISTRIBUTION WIDTH 13.3 % (11.5-14.5); WHITE BLOOD COUNT 8.1 K/uL (4.8-10.8)
[2019-01-23 06:46] LABS: ALB/GLOB RATIO 1.1 (1.0-2.1); ALBUMIN 3.3 g/dL (3.5-5.0); CALCIUM 8.3 mg/dl (8.6-10.4)
[2019-01-23] MEDS: (Novolin R) Insulin Human Regular 100 units/ml vial SC SCH ×4 (08:03→22:52)
--- NOTE | 2019-01-23 09:02 | CP.PCM.PN ---
Subjective - Date & Time of Evaluation Date of Evaluation: 01/23/19 Time of Evaluation: 07:46 - Subjective Subjective: Vascular Surgery Progress note. Dr. Woo Pt seen and examined at bedside. No acute events overnight. No N/V/D. No Fevers or chills. Left arm dressing clean dry and intact. Good thrill. Palpable distal pulses. No new complaints. Objective - Vital Signs/Intake and Output Vital Signs (last 24 hours): Temp Pulse Resp BP Pulse Ox 98.2 F 91 H 12 145/75 97 01/23/19 08:00 01/23/19 08:00 01/23/19 08:00 01/23/19 06:47 01/23/19 08:00 Intake and Output: 01/23/19 01/23/19 06:59 18:59 Intake Total 90 0 Output Total 275 Balance -185 0 - Medications Medications: Current Medications Acetaminophen (Tylenol 325mg Tab) 650 mg PO Q6 PRN PRN Reason: Pain, Mild (1-3) Last Admin: 01/22/19 21:48 Dose: 650 mg Amlodipine Besylate (Norvasc) 10 mg PO DAILY [facility] Last Admin: 01/22/19 09:02 Dose: 10 mg Aspirin (Ecotrin) 81 mg PO DAILY [facility] Last Admin: 01/22/19 09:02 Dose: 81 mg Calcitriol (Rocaltrol) 0.25 mcg PO DAILY [facility] Last Admin: 01/22/19 09:02 Dose: 0.25 mcg Calcium Acetate (Phoslo) 667 mg PO TIDCC [facility] Last Admin: 01/23/19 08:03 Dose: 667 mg Carvedilol (Coreg) 6.25 mg PO BID [facility] Last Admin: 01/22/19 17:00 Dose: 6.25 mg Clopidogrel Bisulfate (Plavix) 75 mg PO DAILY [facility] Last Admin: 01/22/19 09:02 Dose: 75 mg Epoetin Venu (Procrit) 10,000 unit IV MWF [facility] Last Admin: 01/21/19 18:39 Dose: 10,000 unit Famotidine (Pepcid) 20 mg PO DAILY [facility] Last Admin: 01/22/19 09:02 Dose: 20 mg Glipizide (Glucotrol) 5 mg PO ACB [facility] Last Admin: 01/23/19 08:03 Dose: 5 mg Heparin Sodium (Porcine) (Heparin) 5,000 units SC BID [facility] Last Admin: 01/21/19 17:16 Dose: 5,000 units Hydralazine HCl (Apresoline) 10 mg PO Q8 [facility] Last Admin: 01/23/19 05:59 Dose: 10 mg Insulin Glargine (Lantus) 20 unit SC HS [facility] Last Admin: 01/22/19 21:42 Dose: 20 unit Insulin Human Regular (Novolin R) 0 unit SC ACHS [facility]; Protocol Last Admin: 01/23/19 08:03 Dose: 2 u Losartan Potassium (Cozaar) 25 mg PO DAILY [facility] Last Admin: 01/22/19 09:02 Dose: 25 mg Rosuvastatin Calcium (Crestor) 10 mg PO HS [facility] Last Admin: 01/22/19 21:42 Dose: 10 mg Sitagliptin Phosphate (Januvia) 25 mg PO DAILY [facility] Last Admin: 01/22/19 09:01 Dose: 25 mg Tramadol HCl (Ultram) 25 mg PO TID PRN PRN Reason: Pain, moderate (4-7) - Labs Labs: 01/23/19 06:00 01/23/19 06:00 PT 12.1 SECONDS (9.7-12.2) 01/22/19 05:51 INR 1.1 01/22/19 05:51 APTT 38.5 SECONDS (21-34) H 01/22/19 05:51 - Constitutional Appears: Non-toxic, No Acute Distress - Head Exam Head Exam: ATRAUMATIC, NORMAL INSPECTION, NORMOCEPHALIC - Eye Exam Eye Exam: EOMI, Normal appearance. absent: Scleral icterus - ENT Exam ENT Exam: Mucous Membranes Moist - Cardiovascular Exam Cardiovascular Exam: absent: JVD - GI/Abdominal Exam GI & Abdominal Exam: Soft. absent: Distended, Guarding, Rigid, Rebound - Extremities Exam Extremities Exam: absent: Calf Tenderness Additional comments: left arm AVF dressing clean, dry and intact. Palpable thrill, good distal pulses. - Neurological Exam Neurological Exam: Alert, Awake, Oriented x3 - Psychiatric Exam Psychiatric exam: Normal Affect, Normal Mood - Skin Skin Exam: Dry, Intact, Normal Color, Warm Assessment and Plan - Assessment and Plan (Free Text) Assessment: 58yo M s/p LUE AVF creation on 01/22 and Permacath 01/16. Plan: - No further vascular surgery intervention warranted at this time - Upon discharge, follow up with Dr. Woo in office. Call for appointment - Continue to use Permacath for HD in the interim while the AVF matures Further recs as per Dr. Amna Durham PGY2 surgery
--- NOTE | 2019-01-23 10:12 | CP.CCUPN ---
<Tootie De La Cruz - Last Filed: 01/23/19 10:08> CCU Subjective - Physician Review Subjective (Free Text): ICU PROGRESS NOTE FOR DR. Uziel DE LA CRUZ PGY1 Pt seen and examined at bedside this am. PT is POD1 s/p LUE AV fistula formation. He is awake, alert, talking, protecting his airway, denying 12 point ROS CCU Objective - Vital Signs / Intake & Output Vital Signs (Last 4 hours): Vital Signs Temp Pulse Resp BP Pulse Ox 01/23/19 09:00 100 H 12 96 01/23/19 08:47 92 H 19 162/78 H 95 01/23/19 08:16 93 H 15 155/75 H 95 01/23/19 08:00 98.2 F 91 H 12 97 01/23/19 07:00 90 22 94 L 01/23/19 06:47 89 16 145/75 94 L Intake and Output (Last 8hrs): Intake & Output 01/22/19 01/23/19 01/23/19 22:59 06:59 14:59 Intake Total 270 20 360 Output Total 175 100 Balance 95 -80 360 Weight 67.449 kg Intake: Intake, IV Amount 0 0 0 Right Forearm 0 0 0 Right Upper arm 0 0 0 Oral 270 20 360 Output: Urine 175 100 Urine, Voided 175 100 Other: # Voids Urine, Voided 0 1 0 # Bowel Movements 0 1 0 - Physical Exam Head: Positive for: Atraumatic, Normocephalic Pupils: Positive for: PERRL Extroacular Muscles: Positive for: EOMI Conjunctiva: Positive for: Normal Mouth: Positive for: Moist Mucous Membranes Neck: Positive for: Normal Range of Motion, Other (R IJ permcath in place. No erythema/purulence) Respiratory/Chest: Positive for: Clear to Auscultation, Good Air Exchange Cardiovascular: Positive for: Regular Rate and Rhythm, Normal S1, S2 Abdomen: Positive for: Normal Bowel Sounds Upper Extremity: Positive for: Normal Inspection, Other (Dressing in place over L antecubital region. c/d/i) Lower Extremity: Positive for: Normal Inspection, Other (R groin dressing in place. No hematoma) Neurological: Positive for: GCS=15, CN II-XII Intact Skin: Positive for: Warm, Dry Psychiatric: Positive for: Alert, Oriented x 3 - Medications Active Medications: Active Medications Generic Name Dose Route Start Last Admin Trade Name Freq PRN Reason Stop Dose Admin Acetaminophen 650 mg 01/22/19 15:37 01/22/19 21:48 Tylenol 325mg Tab PO 650 mg Q6 PRN Administration Pain, Mild (1-3) Amlodipine Besylate 10 mg 01/15/19 10:00 01/23/19 09:31 Norvasc PO 10 mg DAILY [facility] Administration Aspirin 81 mg 01/20/19 10:00 01/23/19 09:30 Ecotrin PO 81 mg DAILY [facility] Administration Calcitriol 0.25 mcg 01/17/19 10:00 01/23/19 09:31 Rocaltrol PO 0.25 mcg DAILY [facility] Administration Calcium Acetate 667 mg 01/16/19 12:00 01/23/19 08:03 Phoslo PO 667 mg TIDCC [facility] Administration Carvedilol 6.25 mg 01/17/19 19:55 01/23/19 09:30 Coreg PO 6.25 mg BID [facility] Administration Clopidogrel Bisulfate 75 mg 01/20/19 10:00 01/23/19 09:31 Plavix PO 75 mg DAILY [facility] Administration Epoetin Venu 10,000 unit 01/16/19 17:30 01/21/19 18:39 Procrit IV 10,000 unit MWF [facility] Administration Famotidine 20 mg 01/21/19 10:00 01/23/19 09:31 Pepcid PO 20 mg DAILY [facility] Administration Glipizide 5 mg 01/18/19 07:30 01/23/19 08:03 Glucotrol PO 5 mg ACB [facility] Administration Heparin Sodium (Porcine) 5,000 units 01/21/19 18:00 01/23/19 09:30 Heparin SC 5,000 units BID [facility] Administration Hydralazine HCl 10 mg 01/17/19 22:00 01/23/19 05:59 Apresoline PO 10 mg Q8 [facility] Administration Insulin Glargine 20 unit 01/17/19 22:00 01/22/19 21:42 Lantus SC 20 unit HS [facility] Administration Insulin Human Regular 0 unit 01/15/19 07:30 01/23/19 08:03 Novolin R SC 2 u ACHS [facility] Administration Protocol Losartan Potassium 25 mg 01/18/19 10:00 01/23/19 09:30 Cozaar PO 25 mg DAILY [facility] Administration Rosuvastatin Calcium 10 mg 01/22/19 22:00 01/22/19 21:42 Crestor PO 10 mg HS [facility] Administration Sitagliptin Phosphate 25 mg 01/18/19 10:00 01/23/19 09:30 Januvia PO 25 mg DAILY [facility] Administration Tramadol HCl 25 mg 01/22/19 15:37 Ultram PO TID PRN Pain, moderate (4-7) - Patient Studies Lab Studies: Lab Studies 01/23/19 01/23/19 01/23/19 Range/Units 07:48 06:00 06:00 WBC 8.1 (4.8-10.8) K/uL RBC 2.59 L (4.40-5.90) Mil/uL Hgb 8.3 L (12.0-18.0) g/dL Hct 23.9 L (35.0-51.0) % MCV 92.3 (80.0-94.0) fL MCH 32.0 H (27.0-31.0) pg MCHC 34.7 (33.0-37.0) g/dL RDW 13.3 (11.5-14.5) % Plt Count 193 (130-400) K/uL MPV 8.7 (7.2-11.7) fL Neut % (Auto) 72.4 (50.0-75.0) % Lymph % (Auto) 14.2 L (20.0-40.0) % Payne % (Auto) 9.0 (0.0-10.0) % Eos % (Auto) 3.8 (0.0-4.0) % Baso % (Auto) 0.6 (0.0-2.0) % Neut # (Auto) 5.8 (1.8-7.0) K/uL Lymph # (Auto) 1.1 (1.0-4.3) K/uL Payne # (Auto) 0.7 (0.0-0.8) K/uL Eos # (Auto) 0.3 (0.0-0.7) K/uL Baso # (Auto) 0.0 (0.0-0.2) K/uL Sodium 134 (132-148) mmol/L Potassium 4.5 (3.6-5.2) mmol/L Chloride 97 L (98-107) mmol/L Carbon Dioxide 26 (22-30) mmol/L Anion Gap 16 (10-20) BUN 45 H (9-20) mg/dL Creatinine 8.6 H* D (0.8-1.5) mg/dL Est GFR ( Amer) 8 Est GFR (Non-Af Amer) 6 POC Glucose (mg/dL) (65-110) mg/dL Random Glucose 121 H D (75-110) mg/dL Hemoglobin A1c 8.2 H (4.2-6.5) % Calcium 8.3 L (8.6-10.4) mg/dl Phosphorus 6.0 H (2.5-4.5) mg/dL Magnesium 2.2 (1.6-2.3) mg/dL Total Bilirubin 0.3 (0.2-1.3) mg/dL AST 38 (17-59) U/L ALT 32 (21-72) U/L Alkaline Phosphatase 113 (38-126) U/L Total Protein 6.3 (6.3-8.3) g/dL Albumin 3.3 L (3.5-5.0) g/dL Globulin 3.0 (2.2-3.9) gm/dL Albumin/Globulin Ratio 1.1 (1.0-2.1) 01/22/19 Range/Units 14:39 WBC (4.8-10.8) K/uL RBC (4.40-5.90) Mil/uL Hgb (12.0-18.0) g/dL Hct (35.0-51.0) % MCV (80.0-94.0) fL MCH (27.0-31.0) pg MCHC (33.0-37.0) g/dL RDW (11.5-14.5) % Plt Count (130-400) K/uL MPV (7.2-11.7) fL Neut % (Auto) (50.0-75.0) % Lymph % (Auto) (20.0-40.0) % Payne % (Auto) (0.0-10.0) % Eos % (Auto) (0.0-4.0) % Baso % (Auto) (0.0-2.0) % Neut # (Auto) (1.8-7.0) K/uL Lymph # (Auto) (1.0-4.3) K/uL Payne # (Auto) (0.0-0.8) K/uL Eos # (Auto) (0.0-0.7) K/uL Baso # (Auto) (0.0-0.2) K/uL Sodium (132-148) mmol/L Potassium (3.6-5.2) mmol/L Chloride (98-107) mmol/L Carbon Dioxide (22-30) mmol/L Anion Gap (10-20) BUN (9-20) mg/dL Creatinine (0.8-1.5) mg/dL Est GFR ( Amer) Est GFR (Non-Af Amer) POC Glucose (mg/dL) 144 H (65-110) mg/dL Random Glucose (75-110) mg/dL Hemoglobin A1c (4.2-6.5) % Calcium (8.6-10.4) mg/dl Phosphorus (2.5-4.5) mg/dL Magnesium (1.6-2.3) mg/dL Total Bilirubin (0.2-1.3) mg/dL AST (17-59) U/L ALT (21-72) U/L Alkaline Phosphatase (38-126) U/L Total Protein (6.3-8.3) g/dL Albumin (3.5-5.0) g/dL Globulin (2.2-3.9) gm/dL Albumin/Globulin Ratio (1.0-2.1) Laboratory Results - last 24 hr 01/22/19 01/23/19 01/23/19 14:39 06:00 06:00 WBC 8.1 RBC 2.59 L Hgb 8.3 L Hct 23.9 L MCV 92.3 MCH 32.0 H MCHC 34.7 RDW 13.3 Plt Count 193 MPV 8.7 Neut % (Auto) 72.4 Lymph % (Auto) 14.2 L Payne % (Auto) 9.0 Eos % (Auto) 3.8 Baso % (Auto) 0.6 Neut # (Auto) 5.8 Lymph # (Auto) 1.1 Payne # (Auto) 0.7 Eos # (Auto) 0.3 Baso # (Auto) 0.0 Sodium 134 Potassium 4.5 Chloride 97 L Carbon Dioxide 26 Anion Gap 16 BUN 45 H Creatinine 8.6 H* D Est GFR ( Amer) 8 Est GFR (Non-Af Amer) 6 POC Glucose (mg/dL) 144 H Random Glucose 121 H D Hemoglobin A1c Calcium 8.3 L Phosphorus 6.0 H Magnesium 2.2 Total Bilirubin 0.3 AST 38 ALT 32 Alkaline Phosphatase 113 Total Protein 6.3 Albumin 3.3 L Globulin 3.0 Albumin/Globulin Ratio 1.1 01/23/19 07:48 WBC RBC Hgb Hct MCV MCH MCHC RDW Plt Count MPV Neut % (Auto) Lymph % (Auto) Payne % (Auto) Eos % (Auto) Baso % (Auto) Neut # (Auto) Lymph # (Auto) Payne # (Auto) Eos # (Auto) Baso # (Auto) Sodium Potassium Chloride Carbon Dioxide Anion Gap BUN Creatinine Est GFR ( Amer) Est GFR (Non-Af Amer) POC Glucose (mg/dL) Random Glucose Hemoglobin A1c 8.2 H Calcium Phosphorus Magnesium Total Bilirubin AST ALT Alkaline Phosphatase Total Protein Albumin Globulin Albumin/Globulin Ratio Fingerstick Blood Sugar Results: 266 Review of Systems - Review of Systems Review of Systems: per HPI Critical Care Progress Note - Nutrition Nutrition: Nutrition Category Date Time Status Renal Diet [DIET] Diets 01/22/19 Dinner Active Assessment/Plan - Assessment and Plan (Free Text) Assessment: 58 y/o M with PMH CRI now ESRD likely 2/2 diabetic nephropathy 2/2 uncontrolled DM, newly diagnosed CAD, HTN, HLD, hyperuricemia, gout transferred to ICU today for monitoring of critical LAD disease with initiation of heparin drip, loading dose plavix, aspirin, statin. Pt is s/p LHC, coronary angiogram with ARASH placement in LAD 01/21 & LUE AV fistula formation 01/22 Plan: Neuro: AxO x 3 GCS 15 CV NSTEMI -Currently no chest pain, SOB, diaphoresis -s/p PCI with ARASH in LAD 01/22 -Cardiac cath 01/19: 1. L main: patent 2. LAD: prox 80%, Mid 99% 3. L Cx/OM: patent 4. RCA: Dominant, Distal 60% 5. EF: 60%, EDP 24 -plavix daily for 1 year -ASA, statin, b-emilie CLARA-i for life HTN -BP well controlled -c/w amlodipine 10qd, losartan 25mg qd, hydralazine 10Q8 /Renal ESRD on HD -s/p RJ permcath placement for HD initiation. s/p LUE AV fistula formation -c/w dialysis sessions per nephrology recs -c/w phosphate binder: phoslo -c/w calcitriol -monitor UOP Endocrine DM -BS 120-200's -c/w insulin glargine 20u HS, glipizide 5mg, sitagliptin 25mg qd, -c/w insulin sliding scale -maintain euglycemia <180 per NICE-SUGAR trial Heme Anemia -Hgb improved with medication mgmt -likely 2/2 CKD -c/w procrit -c/w ferric sodium gluconate DVT/GI PPX: hep DVT ppx resume per surgery recs/SCD/pepcid Dispo: Patient remains hemodynamically stable. Patient to transfer to medical floors Case reviewed with attending physician, Dr. Jose De La Cruz PGY1 <Lorena Rose - Last Filed: 01/23/19 12:52> CCU Objective - Vital Signs / Intake & Output Vital Signs (Last 4 hours): Vital Signs Pulse Resp BP Pulse Ox 01/23/19 12:00 93 H 20 94 L 01/23/19 11:47 95 H 20 142/69 96 01/23/19 10:47 89 21 138/66 97 01/23/19 10:00 93 H 18 95 01/23/19 09:47 96 H 19 132/60 96 01/23/19 09:00 100 H 12 96 Intake and Output (Last 8hrs): Intake & Output 01/22/19 01/23/19 01/23/19 22:59 06:59 14:59 Intake Total 270 20 360 Output Total 175 100 400 Balance 95 -80 -40 Weight 148 lb 11.2 oz Intake: Intake, IV Amount 0 0 0 Right Forearm 0 0 0 Right Upper arm 0 0 0 Oral 270 20 360 Output: Urine 175 100 400 Urine, Voided 175 100 400 Other: # Voids Urine, Voided 0 1 0 # Bowel Movements 0 1 0 - Medications Active Medications: Active Medications Generic Name Dose Route Start Last Admin Trade Name Freq PRN Reason Stop Dose Admin Acetaminophen 650 mg 01/22/19 15:37 05/23/19 21:48 Tylenol 325mg Tab PO 650 mg Q6 PRN Administration Pain, Mild (1-3) Amlodipine Besylate 10 mg 01/15/19 10:00 01/23/19 09:31 Norvasc PO 10 mg DAILY [facility] Administration Aspirin 81 mg 01/20/19 10:00 01/23/19 09:30 Ecotrin PO 81 mg DAILY [facility] Administration Calcitriol 0.25 mcg 01/17/19 10:00 01/23/19 09:31 Rocaltrol PO 0.25 mcg DAILY [facility] Administration Calcium Acetate 667 mg 01/16/19 12:00 01/23/19 12:01 Phoslo PO 667 mg TIDCC [facility] Administration Carvedilol 6.25 mg 01/17/19 19:55 01/23/19 09:30 Coreg PO 6.25 mg BID [facility] Administration Clopidogrel Bisulfate 75 mg 01/20/19 10:00 01/23/19 09:31 Plavix PO 75 mg DAILY [facility] Administration Epoetin Venu 10,000 unit 01/16/19 17:30 01/21/19 18:39 Procrit IV 10,000 unit MWF [facility] Administration Famotidine 20 mg 01/21/19 10:00 01/23/19 09:31 Pepcid PO 20 mg DAILY [facility] Administration Glipizide 5 mg 01/18/19 07:30 01/23/19 08:03 Glucotrol PO 5 mg ACB [facility] Administration Heparin Sodium (Porcine) 5,000 units 01/21/19 18:00 01/23/19 09:30 Heparin SC 5,000 units BID [facility] Administration Hydralazine HCl 10 mg 01/17/19 22:00 01/23/19 05:59 Apresoline PO 10 mg Q8 [facility] Administration Insulin Glargine 20 unit 01/17/19 22:00 01/22/19 21:42 Lantus SC 20 unit HS [facility] Administration Insulin Human Regular 0 unit 01/15/19 07:30 01/23/19 12:01 Novolin R SC 3 u ACHS [facility] Administration Protocol Losartan Potassium 25 mg 01/18/19 10:00 01/23/19 09:30 Cozaar PO 25 mg DAILY [facility] Administration Rosuvastatin Calcium 10 mg 01/22/19 22:00 01/22/19 21:42 Crestor PO 10 mg HS [facility] Administration Sitagliptin Phosphate 25 mg 01/18/19 10:00 01/23/19 09:30 Januvia PO 25 mg DAILY [facility] Administration Tramadol HCl 25 mg 01/22/19 15:37 Ultram PO TID PRN Pain, moderate (4-7) - Patient Studies Lab Studies: Lab Studies 01/23/19 01/23/19 01/23/19 Range/Units 07:48 06:00 06:00 WBC 8.1 (4.8-10.8) K/uL RBC 2.59 L (4.40-5.90) Mil/uL Hgb 8.3 L (12.0-18.0) g/dL Hct 23.9 L (35.0-51.0) % MCV 92.3 (80.0-94.0) fL MCH 32.0 H (27.0-31.0) pg MCHC 34.7 (33.0-37.0) g/dL RDW 13.3 (11.5-14.5) % Plt Count 193 (130-400) K/uL MPV 8.7 (7.2-11.7) fL Neut % (Auto) 72.4 (50.0-75.0) % Lymph % (Auto) 14.2 L (20.0-40.0) % Payne % (Auto) 9.0 (0.0-10.0) % Eos % (Auto) 3.8 (0.0-4.0) % Baso % (Auto) 0.6 (0.0-2.0) % Neut # (Auto) 5.8 (1.8-7.0) K/uL Lymph # (Auto) 1.1 (1.0-4.3) K/uL Payne # (Auto) 0.7 (0.0-0.8) K/uL Eos # (Auto) 0.3 (0.0-0.7) K/uL Baso # (Auto) 0.0 (0.0-0.2) K/uL Sodium 134 (132-148) mmol/L Potassium 4.5 (3.6-5.2) mmol/L Chloride 97 L (98-107) mmol/L Carbon Dioxide 26 (22-30) mmol/L Anion Gap 16 (10-20) BUN 45 H (9-20) mg/dL Creatinine 8.6 H* D (0.8-1.5) mg/dL Est GFR ( Amer) 8 Est GFR (Non-Af Amer) 6 POC Glucose (mg/dL) (65-110) mg/dL Random Glucose 121 H D (75-110) mg/dL Hemoglobin A1c 8.2 H (4.2-6.5) % Calcium 8.3 L (8.6-10.4) mg/dl Phosphorus 6.0 H (2.5-4.5) mg/dL Magnesium 2.2 (1.6-2.3) mg/dL Total Bilirubin 0.3 (0.2-1.3) mg/dL AST 38 (17-59) U/L ALT 32 (21-72) U/L Alkaline Phosphatase 113 (38-126) U/L Total Protein 6.3 (6.3-8.3) g/dL Albumin 3.3 L (3.5-5.0) g/dL Globulin 3.0 (2.2-3.9) gm/dL Albumin/Globulin Ratio 1.1 (1.0-2.1) 01/22/19 Range/Units 14:39 WBC (4.8-10.8) K/uL RBC (4.40-5.90) Mil/uL Hgb (12.0-18.0) g/dL Hct (35.0-51.0) % MCV (80.0-94.0) fL MCH (27.0-31.0) pg MCHC (33.0-37.0) g/dL RDW (11.5-14.5) % Plt Count (130-400) K/uL MPV (7.2-11.7) fL Neut % (Auto) (50.0-75.0) % Lymph % (Auto) (20.0-40.0) % Payne % (Auto) (0.0-10.0) % Eos % (Auto) (0.0-4.0) % Baso % (Auto) (0.0-2.0) % Neut # (Auto) (1.8-7.0) K/uL Lymph # (Auto) (1.0-4.3) K/uL Payne # (Auto) (0.0-0.8) K/uL Eos # (Auto) (0.0-0.7) K/uL Baso # (Auto) (0.0-0.2) K/uL Sodium (132-148) mmol/L Potassium (3.6-5.2) mmol/L Chloride (98-107) mmol/L Carbon Dioxide (22-30) mmol/L Anion Gap (10-20) BUN (9-20) mg/dL Creatinine (0.8-1.5) mg/dL Est GFR ( Amer) Est GFR (Non-Af Amer) POC Glucose (mg/dL) 144 H (65-110) mg/dL Random Glucose (75-110) mg/dL Hemoglobin A1c (4.2-6.5) % Calcium (8.6-10.4) mg/dl Phosphorus (2.5-4.5) mg/dL Magnesium (1.6-2.3) mg/dL Total Bilirubin (0.2-1.3) mg/dL AST (17-59) U/L ALT (21-72) U/L Alkaline Phosphatase (38-126) U/L Total Protein (6.3-8.3) g/dL Albumin (3.5-5.0) g/dL Globulin (2.2-3.9) gm/dL Albumin/Globulin Ratio (1.0-2.1) Laboratory Results - last 24 hr 01/22/19 01/23/19 01/23/19 14:39 06:00 06:00 WBC 8.1 RBC 2.59 L Hgb 8.3 L Hct 23.9 L MCV 92.3 MCH 32.0 H MCHC 34.7 RDW 13.3 Plt Count 193 MPV 8.7 Neut % (Auto) 72.4 Lymph % (Auto) 14.2 L Payne % (Auto) 9.0 Eos % (Auto) 3.8 Baso % (Auto) 0.6 Neut # (Auto) 5.8 Lymph # (Auto) 1.1 Payne # (Auto) 0.7 Eos # (Auto) 0.3 Baso # (Auto) 0.0 Sodium 134 Potassium 4.5 Chloride 97 L Carbon Dioxide 26 Anion Gap 16 BUN 45 H Creatinine 8.6 H* D Est GFR ( Amer) 8 Est GFR (Non-Af Amer) 6 POC Glucose (mg/dL) 144 H Random Glucose 121 H D Hemoglobin A1c Calcium 8.3 L Phosphorus 6.0 H Magnesium 2.2 Total Bilirubin 0.3 AST 38 ALT 32 Alkaline Phosphatase 113 Total Protein 6.3 Albumin 3.3 L Globulin 3.0 Albumin/Globulin Ratio 1.1 01/23/19 07:48 WBC RBC Hgb Hct MCV MCH MCHC RDW Plt Count MPV Neut % (Auto) Lymph % (Auto) Payne % (Auto) Eos % (Auto) Baso % (Auto) Neut # (Auto) Lymph # (Auto) Payne # (Auto) Eos # (Auto) Baso # (Auto) Sodium Potassium Chloride Carbon Dioxide Anion Gap BUN Creatinine Est GFR ( Amer) Est GFR (Non-Af Amer) POC Glucose (mg/dL) Random Glucose Hemoglobin A1c 8.2 H Calcium Phosphorus Magnesium Total Bilirubin AST ALT Alkaline Phosphatase Total Protein Albumin Globulin Albumin/Globulin Ratio Critical Care Progress Note - Nutrition Nutrition: Nutrition Category Date Time Status Renal Diet [DIET] Diets 01/22/19 Dinner Active Assessment/Plan - Assessment and Plan (Free Text) Plan: Above patient seen and examined at bedside. Patient remains hemodynamically stable. Vitals remains stable. -tolerating oral medications -breathing confortably -above resident note reviewed and verified. - Date & Time Date: 01/23/19 Time: 08:00
--- NOTE | 2019-01-23 13:06 | CP.PCM.PN ---
Subjective - Date & Time of Evaluation Date of Evaluation: 01/23/19 Time of Evaluation: 13:05 - Subjective Subjective: feels better no CPs, SOB transferred to tele labs reviewed for dialysis today Objective - Vital Signs/Intake and Output Vital Signs (last 24 hours): Temp Pulse Resp BP Pulse Ox 98.2 F 93 H 20 142/69 94 L 01/23/19 08:00 01/23/19 12:00 01/23/19 12:00 01/23/19 11:47 01/23/19 12:00 Intake and Output: 01/23/19 01/23/19 06:59 18:59 Intake Total 90 360 Output Total 275 400 Balance -185 -40 - Medications Medications: Current Medications Acetaminophen (Tylenol 325mg Tab) 650 mg PO Q6 PRN PRN Reason: Pain, Mild (1-3) Last Admin: 01/22/19 21:48 Dose: 650 mg Amlodipine Besylate (Norvasc) 10 mg PO DAILY [facility] Last Admin: 01/23/19 09:31 Dose: 10 mg Aspirin (Ecotrin) 81 mg PO DAILY [facility] Last Admin: 01/23/19 09:30 Dose: 81 mg Calcitriol (Rocaltrol) 0.25 mcg PO DAILY [facility] Last Admin: 01/23/19 09:31 Dose: 0.25 mcg Calcium Acetate (Phoslo) 667 mg PO TIDCC [facility] Last Admin: 01/23/19 12:01 Dose: 667 mg Carvedilol (Coreg) 6.25 mg PO BID [facility] Last Admin: 01/23/19 09:30 Dose: 6.25 mg Clopidogrel Bisulfate (Plavix) 75 mg PO DAILY [facility] Last Admin: 01/23/19 09:31 Dose: 75 mg Epoetin Venu (Procrit) 10,000 unit IV MWF [facility] Last Admin: 01/21/19 18:39 Dose: 10,000 unit Famotidine (Pepcid) 20 mg PO DAILY [facility] Last Admin: 01/23/19 09:31 Dose: 20 mg Glipizide (Glucotrol) 5 mg PO ACB [facility] Last Admin: 01/23/19 08:03 Dose: 5 mg Heparin Sodium (Porcine) (Heparin) 5,000 units SC BID [facility] Last Admin: 01/23/19 09:30 Dose: 5,000 units Hydralazine HCl (Apresoline) 10 mg PO Q8 [facility] Last Admin: 01/23/19 05:59 Dose: 10 mg Insulin Glargine (Lantus) 20 unit SC [facility] Last Admin: 01/22/19 21:42 Dose: 20 unit Insulin Human Regular (Novolin R) 0 unit SC ACHS [facility]; Protocol Last Admin: 01/23/19 12:01 Dose: 3 u Losartan Potassium (Cozaar) 25 mg PO DAILY [facility] Last Admin: 01/23/19 09:30 Dose: 25 mg Rosuvastatin Calcium (Crestor) 10 mg PO HS [facility] Last Admin: 01/22/19 21:42 Dose: 10 mg Sitagliptin Phosphate (Januvia) 25 mg PO DAILY [facility] Last Admin: 01/23/19 09:30 Dose: 25 mg Tramadol HCl (Ultram) 25 mg PO TID PRN PRN Reason: Pain, moderate (4-7) - Labs Labs: 01/23/19 06:00 01/23/19 06:00 PT 12.1 SECONDS (9.7-12.2) 01/22/19 05:51 INR 1.1 01/22/19 05:51 APTT 38.5 SECONDS (21-34) H 01/22/19 05:51 - Constitutional Appears: No Acute Distress, Chronically Ill - Head Exam Head Exam: ATRAUMATIC, NORMAL INSPECTION - Eye Exam Eye Exam: EOMI, Normal appearance - Neck Exam Neck Exam: Normal Inspection. absent: Tenderness - Respiratory Exam Respiratory Exam: Clear to Ausculation Bilateral, NORMAL BREATHING PATTERN - Cardiovascular Exam Cardiovascular Exam: REGULAR RHYTHM, +S1 - GI/Abdominal Exam GI & Abdominal Exam: Soft. absent: Tenderness - Extremities Exam Extremities Exam: Normal Inspection. 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
[2019-01-23] MEDS: Epoetin Alfa 10,000 unit/ml Dialysis IV SCH (17:39)
[2019-01-23] MEDS: (Lantus) Insulin Glargine, Recombinant SC SCH (21:52)
--- NOTE | 2019-01-24 06:54 | CP.PCM.PN ---
Subjective - Date & Time of Evaluation Date of Evaluation: 01/23/19 Time of Evaluation: 18:30 - Subjective Subjective: Patient seen and examined this morning at bedside. No acute events overnight. Patient had successful AV fistula. Patient has no complaints at this time. Objective - Constitutional Appears: Non-toxic, No Acute Distress - Head Exam Head Exam: ATRAUMATIC, NORMOCEPHALIC - Eye Exam Eye Exam: Normal appearance - Neck Exam Additional comments: R IJ permacath in place - Respiratory Exam Respiratory Exam: Clear to Ausculation Bilateral, NORMAL BREATHING PATTERN. absent: Rales, Rhonchi, Wheezes, Respiratory Distress - Cardiovascular Exam Cardiovascular Exam: REGULAR RHYTHM, +S1, +S2 - GI/Abdominal Exam GI & Abdominal Exam: Soft. absent: Distended, Firm, Guarding, Rigid, Tenderness - Extremities Exam Extremities Exam: absent: Calf Tenderness, Pedal Edema - Neurological Exam Neurological Exam: Alert, Awake - Psychiatric Exam Psychiatric exam: Normal Affect, Normal Mood - Skin Skin Exam: Dry, Warm Assessment and Plan - Assessment and Plan (Free Text) Plan: CAD Cardiac Cath 01/19/19: * 1. L main: patent * 2. LAD: prox 80%, Mid 99% * 3. L Cx/OM: patent * 4. RCA: Dominant, Distal 60% * 5. EF: 60%, EDP 24 s/p LAD stent (ARASH) placed on 01/21 Plavix 75mg daily for 1 year ASA, Statins, B blockers and CLARA I for life DVT/GI prophylaxis S/P AV fistula CRF on HD Continue current management at this time Objective - Vital Signs/Intake and Output Vital Signs (last 24 hours): Temp Pulse Resp BP Pulse Ox 98.6 F 88 20 124/68 95 01/23/19 23:05 01/24/19 01:00 01/23/19 23:05 01/23/19 23:05 01/23/19 23:05 Intake and Output: 01/23/19 01/24/19 18:59 06:59 Intake Total 360 Output Total 400 Balance -40 - Medications Medications: Current Medications Acetaminophen (Tylenol 325mg Tab) 650 mg PO Q6 PRN PRN Reason: Pain, Mild (1-3) Last Admin: 01/22/19 21:48 Dose: 650 mg Amlodipine Besylate (Norvasc) 10 mg PO DAILY [facility] Last Admin: 01/23/19 09:31 Dose: 10 mg Aspirin (Ecotrin) 81 mg PO DAILY [facility]S [facility] 234 BEDS AT [facility] Last Admin: 01/23/19 09:30 Dose: 81 mg Calcitriol (Rocaltrol) 0.25 mcg PO DAILY [facility]S INCLUDE 234 BEDS AT [facility] Last Admin: 01/23/19 09:31 Dose: 0.25 mcg Calcium Acetate (Phoslo) 667 mg PO TIDCC COUNTS INCLUDE 234 BEDS AT [facility] Last Admin: 01/23/19 18:17 Dose: Not Given Carvedilol (Coreg) 6.25 mg PO BID [facility]S [facility]CLUDE 234 BEDS AT [facility] Last Admin: 01/23/19 18:17 Dose: Not Given Clopidogrel Bisulfate (Plavix) 75 mg PO DAILY [facility]S INCLUDE 234 BEDS AT [facility] Last Admin: 01/23/19 09:31 Dose: 75 mg Epoetin Venu (Procrit) 10,000 unit IV MWF [facility]S [facility]CLUDE 234 BEDS AT [facility] Last Admin: 01/23/19 17:39 Dose: 10,000 unit Famotidine (Pepcid) 20 mg PO DAILY [facility]CLUDE 234 BEDS AT [facility] Last Admin: 01/23/19 09:31 Dose: 20 mg Glipizide (Glucotrol) 5 mg PO ACB COUNTS INCLUDE 234 BEDS AT [facility] Last Admin: 01/23/19 08:03 Dose: 5 mg Heparin Sodium (Porcine) (Heparin) 5,000 units SC BID [facility]S [facility]CLUDE 234 BEDS AT [facility] Last Admin: 01/23/19 18:17 Dose: Not Given Hydralazine HCl (Apresoline) 10 mg PO Q12 [facility]S INCLUDE 234 BEDS AT [facility] Last Admin: 01/23/19 21:52 Dose: 10 mg Insulin Glargine (Lantus) 20 unit SC HS [facility]S INCLUDE 234 BEDS AT [facility] Last Admin: 01/23/19 21:52 Dose: 20 unit Insulin Human Regular (Novolin R) 0 unit SC [facility]; Protocol Last Admin: 01/23/19 22:52 Dose: Not Given Losartan Potassium (Cozaar) 50 mg PO DAILY [facility]S INCLUDE 234 BEDS AT [facility] Rosuvastatin Calcium (Crestor) 10 mg PO HS COUNTS INCLUDE 234 BEDS AT [facility] Last Admin: 01/23/19 21:51 Dose: 10 mg Sitagliptin Phosphate (Januvia) 25 mg PO DAILY [facility]CLUDE 234 BEDS AT [facility] Last Admin: 01/23/19 09:30 Dose: 25 mg - Labs Labs: 01/23/19 06:00 01/23/19 06:00 PT 12.1 SECONDS (9.7-12.2) 01/22/19 05:51 INR 1.1 01/22/19 05:51 APTT 38.5 SECONDS (21-34) H 01/22/19 05:51
[2019-01-24 07:11] LABS: BASO # 0.1 K/uL (0.0-0.2); BASO % 0.7 % (0.0-2.0); EOS # 0.3 K/uL (0.0-0.7); EOS % 3.8 % (0.0-4.0); LYMPH % 12.2 % (20.0-40.0); MEAN CELL VOLUME 91.9 fL (80.0-94.0); MEAN CORPUSCULAR HEMOGLOBIN 32.2 pg (27.0-31.0); MEAN PLATELET VOLUME 8.2 fL (7.2-11.7); MONO # 0.8 K/uL (0.0-0.8); MONO % 9.8 % (0.0-10.0); NEUT # 5.8 K/uL (1.8-7.0); NEUT % 73.5 % (50.0-75.0); RBC 2.79 Mil/uL (4.40-5.90); RED CELL DISTRIBUTION WIDTH 13.5 % (11.5-14.5); WHITE BLOOD COUNT 7.9 K/uL (4.8-10.8)
[2019-01-24 07:26] LABS: ALBUMIN 3.4 g/dL (3.5-5.0); CALCIUM 8.7 mg/dl (8.6-10.4)
[2019-01-24] MEDS: (Novolin R) Insulin Human Regular 100 units/ml vial SC SCH ×4 (08:27→21:08)
--- NOTE | 2019-01-24 10:10 | CP.PCM.PN ---
Subjective - Date & Time of Evaluation Date of Evaluation: 01/24/19 Time of Evaluation: 10:10 - Subjective Subjective: afebrile bp stable awake alert comfortable no chest pain ROS no chills fever no chest pain palpitations no cough sob no abd pain,n,v,d no dysuria,hematuria bruise rt groin no headahe dizziness Objective - Vital Signs/Intake and Output Vital Signs (last 24 hours): Temp Pulse Resp BP Pulse Ox 99.4 F 90 20 117/81 96 01/24/19 07:00 01/24/19 07:00 01/24/19 07:00 01/24/19 07:00 01/24/19 07:00 - Medications Medications: Current Medications Acetaminophen (Tylenol 325mg Tab) 650 mg PO Q6 PRN PRN Reason: Pain, Mild (1-3) Last Admin: 01/22/19 21:48 Dose: 650 mg Amlodipine Besylate (Norvasc) 10 mg PO DAILY [facility] Last Admin: 01/23/19 09:31 Dose: 10 mg Aspirin (Ecotrin) 81 mg PO DAILY [facility] Last Admin: 01/23/19 09:30 Dose: 81 mg Calcitriol (Rocaltrol) 0.25 mcg PO DAILY [facility] Last Admin: 01/23/19 09:31 Dose: 0.25 mcg Calcium Acetate (Phoslo) 667 mg PO TIDCC [facility] Last Admin: 01/24/19 08:55 Dose: 667 mg Carvedilol (Coreg) 6.25 mg PO BID [facility] Last Admin: 01/23/19 18:17 Dose: Not Given Clopidogrel Bisulfate (Plavix) 75 mg PO DAILY [facility] Last Admin: 01/23/19 09:31 Dose: 75 mg Epoetin Venu (Procrit) 10,000 unit IV MWF [facility] Last Admin: 01/23/19 17:39 Dose: 10,000 unit Famotidine (Pepcid) 20 mg PO DAILY [facility] Last Admin: 01/23/19 09:31 Dose: 20 mg Glipizide (Glucotrol) 5 mg PO ACB [facility] Last Admin: 01/24/19 08:55 Dose: 5 mg Heparin Sodium (Porcine) (Heparin) 5,000 units SC BID [facility] Last Admin: 01/23/19 18:17 Dose: Not Given Hydralazine HCl (Apresoline) 10 mg PO Q12 [facility] Last Admin: 01/23/19 21:52 Dose: 10 mg Insulin Glargine (Lantus) 20 unit SC HS [facility] Last Admin: 01/23/19 21:52 Dose: 20 unit Insulin Human Regular (Novolin R) 0 unit SC ACHS [facility]; Protocol Last Admin: 01/24/19 08:27 Dose: Not Given Losartan Potassium (Cozaar) 50 mg PO DAILY [facility] Rosuvastatin Calcium (Crestor) 10 mg PO HS [facility] Last Admin: 01/23/19 21:51 Dose: 10 mg Sitagliptin Phosphate (Januvia) 25 mg PO DAILY [facility] Last Admin: 01/23/19 09:30 Dose: 25 mg - Labs Labs: 01/24/19 07:02 01/24/19 07:02 PT 12.1 SECONDS (9.7-12.2) 01/22/19 05:51 INR 1.1 01/22/19 05:51 APTT 38.5 SECONDS (21-34) H 01/22/19 05:51 - Constitutional Appears: Well, No Acute Distress - Head Exam Head Exam: ATRAUMATIC, NORMOCEPHALIC - Eye Exam Eye Exam: absent: Conjunctival injection - ENT Exam ENT Exam: Mucous Membranes Moist - Respiratory Exam Respiratory Exam: Clear to Ausculation Bilateral, NORMAL BREATHING PATTERN - Cardiovascular Exam Cardiovascular Exam: REGULAR RHYTHM. absent: JVD - GI/Abdominal Exam GI & Abdominal Exam: Soft. absent: Distended, Tenderness - Exam Additional comments: ecchymosis rt groin - Extremities Exam Extremities Exam: absent: Calf Tenderness, Pedal Edema - Neurological Exam Neurological Exam: Alert, Awake - Psychiatric Exam Psychiatric exam: Normal Affect, Normal Mood - Skin Skin Exam: Dry, Warm Assessment and Plan (1) Coronary artery arteriosclerosis Status: Acute (2) ESRD (end stage renal disease) Status: Acute (3) Coronary artery disease Status: Acute - Assessment and Plan (Free Text) Plan: follow cardiogy recommendations next dailysis 01/26 orders written to ultrafiltrate
[2019-01-24] MEDS: (Lantus) Insulin Glargine, Recombinant SC SCH (21:15)
--- NOTE | 2019-01-24 22:04 | CP.PCM.PN ---
Subjective - Date & Time of Evaluation Date of Evaluation: 01/24/19 Time of Evaluation: 07:30 - Subjective Subjective: Patient seen and examined this morning at bedside. No acute events overnight. Patient had successful AV fistula. Patient has no complaints at this time. Objective - Constitutional Appears: Non-toxic, No Acute Distress - Head Exam Head Exam: ATRAUMATIC, NORMOCEPHALIC - Eye Exam Eye Exam: Normal appearance - Neck Exam Additional comments: R IJ permacath in place - Respiratory Exam Respiratory Exam: Clear to Ausculation Bilateral, NORMAL BREATHING PATTERN. absent: Rales, Rhonchi, Wheezes, Respiratory Distress - Cardiovascular Exam Cardiovascular Exam: REGULAR RHYTHM, +S1, +S2 - GI/Abdominal Exam GI & Abdominal Exam: Soft. absent: Distended, Firm, Guarding, Rigid, Tenderness - Extremities Exam Extremities Exam: absent: Calf Tenderness, Pedal Edema - Neurological Exam Neurological Exam: Alert, Awake - Psychiatric Exam Psychiatric exam: Normal Affect, Normal Mood - Skin Skin Exam: Dry, Warm Assessment and Plan - Assessment and Plan (Free Text) Plan: CAD Cardiac Cath 01/19/19: * 1. L main: patent * 2. LAD: prox 80%, Mid 99% * 3. L Cx/OM: patent * 4. RCA: Dominant, Distal 60% * 5. EF: 60%, EDP 24 s/p LAD stent (ARASH) placed on 01/21 Plavix 75mg daily for 1 year ASA, Statins, B blockers and CLARA I for life DVT/GI prophylaxis S/P AV fistula CRF on HD Continue current management at this time Objective - Vital Signs/Intake and Output Vital Signs (last 24 hours): Temp Pulse Resp BP Pulse Ox 98 F 100 H 20 100/62 97 01/24/19 15:00 01/24/19 16:21 01/24/19 15:00 01/24/19 15:00 01/24/19 15:00 Intake and Output: 01/24/19 01/25/19 18:59 06:59 Intake Total 400 Balance 400 - Medications Medications: Current Medications Acetaminophen (Tylenol 325mg Tab) 650 mg PO Q6 PRN PRN Reason: Pain, Mild (1-3) Last Admin: 01/22/19 21:48 Dose: 650 mg Amlodipine Besylate (Norvasc) 10 mg PO DAILY [facility] Last Admin: 01/24/19 10:26 Dose: 10 mg Aspirin (Ecotrin) 81 mg PO DAILY [facility] Last Admin: 01/24/19 10:26 Dose: 81 mg Calcitriol (Rocaltrol) 0.25 mcg PO DAILY [facility] Last Admin: 01/24/19 10:27 Dose: 0.25 mcg Calcium Acetate (Phoslo) 667 mg PO TIDCC [facility] Last Admin: 01/24/19 17:31 Dose: 667 mg Carvedilol (Coreg) 6.25 mg PO BID [facility] Last Admin: 01/24/19 17:31 Dose: 6.25 mg Clopidogrel Bisulfate (Plavix) 75 mg PO DAILY [facility] Last Admin: 01/24/19 10:27 Dose: 75 mg Epoetin Venu (Procrit) 10,000 unit IV MWF [facility] Last Admin: 01/23/19 17:39 Dose: 10,000 unit Famotidine (Pepcid) 20 mg PO DAILY [facility] Last Admin: 01/24/19 10:27 Dose: 20 mg Glipizide (Glucotrol) 5 mg PO ACB [facility] Last Admin: 01/24/19 08:55 Dose: 5 mg Heparin Sodium (Porcine) (Heparin) 5,000 units SC BID [facility] Last Admin: 01/24/19 17:32 Dose: 5,000 units Hydralazine HCl (Apresoline) 10 mg PO Q12 [facility] Last Admin: 01/24/19 21:16 Dose: 10 mg Insulin Glargine (Lantus) 20 unit SC HS [facility] Last Admin: 01/24/19 21:15 Dose: 20 unit Insulin Human Regular (Novolin R) 0 unit SC [facility]; Protocol Last Admin: 01/24/19 21:08 Dose: Not Given Losartan Potassium (Cozaar) 50 mg PO DAILY [facility] Last Admin: 01/24/19 10:27 Dose: 50 mg Rosuvastatin Calcium (Crestor) 10 mg PO HS [facility] Last Admin: 01/24/19 21:16 Dose: 10 mg Sitagliptin Phosphate (Januvia) 25 mg PO DAILY [facility] Last Admin: 01/24/19 10:27 Dose: 25 mg - Labs Labs: 01/24/19 07:02 01/24/19 07:02 PT 12.1 SECONDS (9.7-12.2) 01/22/19 05:51 INR 1.1 01/22/19 05:51 APTT 38.5 SECONDS (21-34) H 01/22/19 05:51
[2019-01-25 08:15] LABS: BASO % 0.4 % (0.0-2.0); EOS # 0.4 K/uL (0.0-0.7); EOS % 5.2 % (0.0-4.0); LYMPH # 1.3 K/uL (1.0-4.3); LYMPH % 15.7 % (20.0-40.0); MEAN CELL VOLUME 91.1 fL (80.0-94.0); MEAN CORPUSCULAR HEMOGLOBIN 31.9 pg (27.0-31.0); MEAN CORPUSCULAR HGB CONC 35.1 g/dL (33.0-37.0); MEAN PLATELET VOLUME 7.9 fL (7.2-11.7); MONO # 0.7 K/uL (0.0-0.8); MONO % 9.2 % (0.0-10.0); NEUT # 5.7 K/uL (1.8-7.0); NEUT % 69.5 % (50.0-75.0); RBC 2.82 Mil/uL (4.40-5.90); RED CELL DISTRIBUTION WIDTH 14.1 % (11.5-14.5); WHITE BLOOD COUNT 8.2 K/uL (4.8-10.8)
[2019-01-25 08:53] LABS: ALB/GLOB RATIO 1.1 (1.0-2.1); ALBUMIN 3.6 g/dL (3.5-5.0); CALCIUM 8.5 mg/dl (8.6-10.4)
[2019-01-25] MEDS: (Novolin R) Insulin Human Regular 100 units/ml vial SC SCH ×4 (08:58→21:18)
[2019-01-25] MEDS: (Lantus) Insulin Glargine, Recombinant SC SCH (21:17)
--- NOTE | 2019-01-25 22:17 | CP.PCM.PN ---
Subjective - Date & Time of Evaluation Date of Evaluation: 01/25/19 Time of Evaluation: 08:30 - Subjective Subjective: Patient with no cardiac events Objective - Constitutional Appears: Non-toxic, No Acute Distress - Head Exam Head Exam: ATRAUMATIC, NORMOCEPHALIC - Eye Exam Eye Exam: Normal appearance - Neck Exam Additional comments: R IJ permacath in place - Respiratory Exam Respiratory Exam: Clear to Ausculation Bilateral, NORMAL BREATHING PATTERN. absent: Rales, Rhonchi, Wheezes, Respiratory Distress - Cardiovascular Exam Cardiovascular Exam: REGULAR RHYTHM, +S1, +S2 - GI/Abdominal Exam GI & Abdominal Exam: Soft. absent: Distended, Firm, Guarding, Rigid, Tenderness - Extremities Exam Extremities Exam: absent: Calf Tenderness, Pedal Edema - Neurological Exam Neurological Exam: Alert, Awake - Psychiatric Exam Psychiatric exam: Normal Affect, Normal Mood - Skin Skin Exam: Dry, Warm Assessment and Plan - Assessment and Plan (Free Text) Plan: CAD Cardiac Cath 01/19/19: * 1. L main: patent * 2. LAD: prox 80%, Mid 99% * 3. L Cx/OM: patent * 4. RCA: Dominant, Distal 60% * 5. EF: 60%, EDP 24 s/p LAD stent (ARASH) placed on 01/21 Plavix 75mg daily for 1 year ASA, Statins, B blockers and CLARA I for life DVT/GI prophylaxis S/P AV fistula CRF on HD Objective - Vital Signs/Intake and Output Vital Signs (last 24 hours): Temp Pulse Resp BP Pulse Ox 99.4 F 92 H 20 115/54 L 94 L 01/25/19 16:00 01/25/19 16:00 01/25/19 16:00 01/25/19 16:00 01/25/19 16:00 Intake and Output: 01/25/19 01/26/19 18:59 06:59 Intake Total 500 Balance 500 - Medications Medications: Current Medications Acetaminophen (Tylenol 325mg Tab) 650 mg PO Q6 PRN PRN Reason: Pain, Mild (1-3) Last Admin: 01/22/19 21:48 Dose: 650 mg Amlodipine Besylate (Norvasc) 10 mg PO DAILY [facility] Last Admin: 01/25/19 10:10 Dose: 10 mg Aspirin (Ecotrin) 81 mg PO DAILY [facility] Last Admin: 01/25/19 10:10 Dose: 81 mg Calcitriol (Rocaltrol) 0.25 mcg PO DAILY [facility] Last Admin: 01/25/19 10:10 Dose: 0.25 mcg Calcium Acetate (Phoslo) 667 mg PO TIDCC [facility] Last Admin: 01/25/19 17:29 Dose: 667 mg Carvedilol (Coreg) 6.25 mg PO BID [facility] Last Admin: 01/25/19 17:29 Dose: 6.25 mg Clopidogrel Bisulfate (Plavix) 75 mg PO DAILY [facility] Last Admin: 01/25/19 10:09 Dose: 75 mg Colchicine (Colocrys) 0.6 mg PO DAILY [facility] Last Admin: 01/25/19 12:01 Dose: 0.6 mg Epoetin Evnu (Procrit) 10,000 unit IV MWF [facility] Last Admin: 01/23/19 17:39 Dose: 10,000 unit Famotidine (Pepcid) 20 mg PO DAILY [facility] Last Admin: 01/25/19 10:10 Dose: 20 mg Glipizide (Glucotrol) 5 mg PO ACB [facility] Last Admin: 01/25/19 08:55 Dose: 5 mg Hydralazine HCl (Apresoline) 10 mg PO Q12 [facility] Last Admin: 01/25/19 21:17 Dose: 10 mg Insulin Glargine (Lantus) 20 unit SC HS [facility] Last Admin: 01/25/19 21:17 Dose: 20 unit Insulin Human Regular (Novolin R) 0 unit SC ACHS [facility]; Protocol Last Admin: 01/25/19 21:18 Dose: Not Given Losartan Potassium (Cozaar) 50 mg PO DAILY [facility] Last Admin: 01/25/19 10:10 Dose: 50 mg Rosuvastatin Calcium (Crestor) 10 mg PO HS [facility] Last Admin: 01/25/19 21:17 Dose: 10 mg Sitagliptin Phosphate (Januvia) 25 mg PO DAILY [facility] Last Admin: 01/25/19 10:09 Dose: 25 mg - Labs Labs: 01/25/19 08:02 01/25/19 08:02 PT 12.1 SECONDS (9.7-12.2) 01/22/19 05:51 INR 1.1 01/22/19 05:51 APTT 38.5 SECONDS (21-34) H 01/22/19 05:51
[2019-01-26 07:16] LABS: BASO % 0.6 % (0.0-2.0); EOS # 0.4 K/uL (0.0-0.7); EOS % 4.6 % (0.0-4.0); HEMOGLOBIN 8.7 g/dL (12.0-18.0); LYMPH # 1.2 K/uL (1.0-4.3); LYMPH % 14.9 % (20.0-40.0); MEAN CELL VOLUME 91.7 fL (80.0-94.0); MEAN CORPUSCULAR HEMOGLOBIN 31.9 pg (27.0-31.0); MEAN CORPUSCULAR HGB CONC 34.7 g/dL (33.0-37.0); MEAN PLATELET VOLUME 8.3 fL (7.2-11.7); MONO # 0.8 K/uL (0.0-0.8); MONO % 9.9 % (0.0-10.0); NEUT # 5.8 K/uL (1.8-7.0); RBC 2.72 Mil/uL (4.40-5.90); RED CELL DISTRIBUTION WIDTH 14.6 % (11.5-14.5); WHITE BLOOD COUNT 8.2 K/uL (4.8-10.8)
[2019-01-26 07:46] LABS: ALBUMIN 3.5 g/dL (3.5-5.0); CALCIUM 8.8 mg/dl (8.6-10.4)
[2019-01-26] MEDS: (Novolin R) Insulin Human Regular 100 units/ml vial SC SCH ×4 (07:52→21:11)
--- NOTE | 2019-01-26 10:30 | CP.PCM.PN ---
Subjective - Date & Time of Evaluation Date of Evaluation: 01/26/19 Time of Evaluation: 10:28 - Subjective Subjective: seen on dialysis To UF 1500ml HTN controlled K normalized ferritin low feels better Objective - Vital Signs/Intake and Output Vital Signs (last 24 hours): Temp Pulse Resp BP Pulse Ox 98.2 F 96 H 18 112/78 97 01/26/19 09:35 01/26/19 09:35 01/26/19 09:35 01/26/19 10:20 01/26/19 09:35 - Medications Medications: Current Medications Acetaminophen (Tylenol 325mg Tab) 650 mg PO Q6 PRN PRN Reason: Pain, Mild (1-3) Last Admin: 01/22/19 21:48 Dose: 650 mg Amlodipine Besylate (Norvasc) 10 mg PO DAILY [facility] Last Admin: 01/25/19 10:10 Dose: 10 mg Aspirin (Ecotrin) 81 mg PO DAILY [facility] Last Admin: 01/25/19 10:10 Dose: 81 mg Calcitriol (Rocaltrol) 0.25 mcg PO DAILY [facility] Last Admin: 01/25/19 10:10 Dose: 0.25 mcg Calcium Acetate (Phoslo) 667 mg PO TIDCC [facility] Last Admin: 01/26/19 08:16 Dose: 667 mg Carvedilol (Coreg) 6.25 mg PO BID [facility] Last Admin: 01/26/19 09:38 Dose: Not Given Clopidogrel Bisulfate (Plavix) 75 mg PO DAILY [facility] Last Admin: 01/25/19 10:09 Dose: 75 mg Colchicine (Colocrys) 0.6 mg PO DAILY [facility] Last Admin: 01/25/19 12:01 Dose: 0.6 mg Epoetin Venu (Procrit) 10,000 unit IV MWF [facility] Last Admin: 01/23/19 17:39 Dose: 10,000 unit Famotidine (Pepcid) 20 mg PO DAILY [facility] Last Admin: 01/25/19 10:10 Dose: 20 mg Glipizide (Glucotrol) 5 mg PO ACB [facility] Last Admin: 01/26/19 08:16 Dose: 5 mg Hydralazine HCl (Apresoline) 10 mg PO Q12 [facility] Last Admin: 01/26/19 09:38 Dose: Not Given Insulin Glargine (Lantus) 20 unit SC HS [facility] Last Admin: 01/25/19 21:17 Dose: 20 unit Insulin Human Regular (Novolin R) 0 unit SC ACHS [facility]; Protocol Last Admin: 01/26/19 07:52 Dose: Not Given Losartan Potassium (Cozaar) 50 mg PO DAILY [facility] Last Admin: 01/25/19 10:10 Dose: 50 mg Rosuvastatin Calcium (Crestor) 10 mg PO HS [facility] Last Admin: 01/25/19 21:17 Dose: 10 mg Sitagliptin Phosphate (Januvia) 25 mg PO DAILY [facility] Last Admin: 01/25/19 10:09 Dose: 25 mg - Labs Labs: 01/26/19 07:06 01/26/19 07:06 PT 12.1 SECONDS (9.7-12.2) 01/22/19 05:51 INR 1.1 01/22/19 05:51 APTT 38.5 SECONDS (21-34) H 01/22/19 05:51 - Constitutional Appears: No Acute Distress, Chronically Ill - Head Exam Head Exam: ATRAUMATIC, NORMAL INSPECTION - Eye Exam Eye Exam: EOMI, Normal appearance - Neck Exam Neck Exam: Normal Inspection. absent: Tenderness - Respiratory Exam Respiratory Exam: Clear to Ausculation Bilateral, NORMAL BREATHING PATTERN - Cardiovascular Exam Cardiovascular Exam: REGULAR RHYTHM, +S1 - GI/Abdominal Exam GI & Abdominal Exam: Soft. absent: Tenderness - Extremities Exam Extremities Exam: Normal Inspection. absent: Tenderness - Neurological Exam Neurological Exam: Awake, CN II-XII Intact - Skin Skin Exam: Dry, Warm Assessment and Plan (1) Chronic kidney disease, stage V Status: Acute (2) Type 2 diabetes mellitus with diabetic nephropathy Status: Acute (3) Hypertensive chronic kidney disease with stage 5 chronic kidney disease or end stage renal disease Status: Acute (4) ESRD (end stage renal disease) Status: Acute (5) Coronary artery arteriosclerosis Status: Acute - Assessment and Plan (Free Text) Plan: IV FE dialysis MWF HD placement
[2019-01-26] MEDS: Epoetin Alfa 10,000 unit/ml Dialysis IV SCH (10:44)
[2019-01-26] MEDS: Ferric Sodium Gluconat Complex 62.5 mg/5 ml Vial IVPB SCH (10:45)
--- NOTE | 2019-01-26 19:24 | CP.PCM.PN ---
Subjective - Date & Time of Evaluation Date of Evaluation: 01/26/19 Time of Evaluation: 09:15 - Subjective Subjective: Patient seen and examined this morning at bedside. No acute events overnight. Patient had successful AV fistula. Patient has no complaints at this time. Objective - Constitutional Appears: Non-toxic, No Acute Distress - Head Exam Head Exam: ATRAUMATIC, NORMOCEPHALIC - Eye Exam Eye Exam: Normal appearance - Neck Exam Additional comments: R IJ permacath in place - Respiratory Exam Respiratory Exam: Clear to Ausculation Bilateral, NORMAL BREATHING PATTERN. absent: Rales, Rhonchi, Wheezes, Respiratory Distress - Cardiovascular Exam Cardiovascular Exam: REGULAR RHYTHM, +S1, +S2 - GI/Abdominal Exam GI & Abdominal Exam: Soft. absent: Distended, Firm, Guarding, Rigid, Tenderness - Extremities Exam Extremities Exam: absent: Calf Tenderness, Pedal Edema - Neurological Exam Neurological Exam: Alert, Awake - Psychiatric Exam Psychiatric exam: Normal Affect, Normal Mood - Skin Skin Exam: Dry, Warm Assessment and Plan - Assessment and Plan (Free Text) Plan: CAD Cardiac Cath 01/19/19: * 1. L main: patent * 2. LAD: prox 80%, Mid 99% * 3. L Cx/OM: patent * 4. RCA: Dominant, Distal 60% * 5. EF: 60%, EDP 24 s/p LAD stent (ARASH) placed on 01/21 Plavix 75mg daily for 1 year ASA, Statins, B blockers and CLARA I for life DVT/GI prophylaxis S/P AV fistula CRF on HD Continue current management at this time Objective - Vital Signs/Intake and Output Vital Signs (last 24 hours): Temp Pulse Resp BP Pulse Ox 97.7 F 91 H 16 150/88 98 01/26/19 13:05 01/26/19 13:05 01/26/19 13:05 01/26/19 13:05 01/26/19 13:05 Intake and Output: 01/26/19 01/27/19 18:59 06:59 Intake Total 350 Balance 350 - Medications Medications: Current Medications Acetaminophen (Tylenol 325mg Tab) 650 mg PO Q6 PRN PRN Reason: Pain, Mild (1-3) Last Admin: 01/22/19 21:48 Dose: 650 mg Amlodipine Besylate (Norvasc) 10 mg PO DAILY [facility] Last Admin: 01/26/19 13:25 Dose: 10 mg Aspirin (Ecotrin) 81 mg PO DAILY [facility] Last Admin: 01/26/19 13:25 Dose: 81 mg Calcitriol (Rocaltrol) 0.25 mcg PO DAILY [facility] Last Admin: 01/26/19 13:24 Dose: 0.25 mcg Calcium Acetate (Phoslo) 667 mg PO TIDCC [facility] Last Admin: 01/26/19 17:42 Dose: 667 mg Carvedilol (Coreg) 6.25 mg PO BID [facility] Last Admin: 01/26/19 17:42 Dose: 6.25 mg Clopidogrel Bisulfate (Plavix) 75 mg PO DAILY [facility] Last Admin: 01/26/19 13:25 Dose: 75 mg Colchicine (Colocrys) 0.6 mg PO DAILY [facility] Last Admin: 01/26/19 13:24 Dose: 0.6 mg Epoetin Venu (Procrit) 10,000 unit IV MWF [facility] Last Admin: 01/26/19 10:44 Dose: 10,000 unit Famotidine (Pepcid) 20 mg PO DAILY [facility] Last Admin: 01/26/19 13:25 Dose: 20 mg Ferric Sodium Gluconate Complex (Ferrlecit) 125 mg IVPB DAILY [facility] Stop: 02/03/19 10:31 Last Admin: 01/26/19 10:45 Dose: 125 mg Glipizide (Glucotrol) 5 mg PO ACB [facility] Last Admin: 01/26/19 08:16 Dose: 5 mg Hydralazine HCl (Apresoline) 10 mg PO Q12 [facility] Last Admin: 01/26/19 09:38 Dose: Not Given Insulin Glargine (Lantus) 20 unit SC [facility] Last Admin: 01/25/19 21:17 Dose: 20 unit Insulin Human Regular (Novolin R) 0 unit SC [facility]; Protocol Last Admin: 01/26/19 17:42 Dose: 2 units Losartan Potassium (Cozaar) 50 mg PO DAILY [facility] Last Admin: 01/26/19 13:25 Dose: 50 mg Rosuvastatin Calcium (Crestor) 10 mg PO HS [facility] Last Admin: 01/25/19 21:17 Dose: 10 mg Sitagliptin Phosphate (Januvia) 25 mg PO DAILY [facility] Last Admin: 01/26/19 13:25 Dose: 25 mg - Labs Labs: 01/26/19 07:06 05/27/19 07:06 PT 12.1 SECONDS (9.7-12.2) 01/22/19 05:51 INR 1.1 01/22/19 05:51 APTT 38.5 SECONDS (21-34) H 01/22/19 05:51
[2019-01-26] MEDS: (Lantus) Insulin Glargine, Recombinant SC SCH (21:27)
[2019-01-27] MEDS: (Novolin R) Insulin Human Regular 100 units/ml vial SC SCH ×2 (08:11→12:16)
[2019-01-27 08:16] VITALS: RESP 18; TEMP 98.7; O2SAT 96
[2019-01-27 08:27] LABS: BASO # 0.1 K/uL (0.0-0.2); BASO % 0.9 % (0.0-2.0); EOS # 0.4 K/uL (0.0-0.7); EOS % 4.9 % (0.0-4.0); HEMOGLOBIN 10.1 g/dL (12.0-18.0); LYMPH # 1.4 K/uL (1.0-4.3); LYMPH % 18.8 % (20.0-40.0); MEAN CELL VOLUME 92.2 fL (80.0-94.0); MEAN CORPUSCULAR HEMOGLOBIN 31.8 pg (27.0-31.0); MEAN CORPUSCULAR HGB CONC 34.5 g/dL (33.0-37.0); MEAN PLATELET VOLUME 7.6 fL (7.2-11.7); MONO # 0.7 K/uL (0.0-0.8); MONO % 9.3 % (0.0-10.0); NEUT # 5.1 K/uL (1.8-7.0); NEUT % 66.1 % (50.0-75.0); NRBC % 0.1 % (0.0-2.0); RBC 3.16 Mil/uL (4.40-5.90); RED CELL DISTRIBUTION WIDTH 14.2 % (11.5-14.5); WHITE BLOOD COUNT 7.7 K/uL (4.8-10.8)
--- NOTE | 2019-01-27 08:33 | CP.PCM.PN ---
Subjective - Date & Time of Evaluation Date of Evaluation: 01/26/19 Time of Evaluation: 08:33 Objective - Vital Signs/Intake and Output Vital Signs (last 24 hours): Temp Pulse Resp BP Pulse Ox 98.7 F 101 H 18 107/63 96 01/27/19 07:00 01/27/19 07:49 01/27/19 07:00 01/27/19 07:00 01/27/19 07:00 - Medications Medications: Current Medications Acetaminophen (Tylenol 325mg Tab) 650 mg PO Q6 PRN PRN Reason: Pain, Mild (1-3) Last Admin: 01/22/19 21:48 Dose: 650 mg Amlodipine Besylate (Norvasc) 10 mg PO DAILY [facility] Last Admin: 01/26/19 13:25 Dose: 10 mg Aspirin (Ecotrin) 81 mg PO DAILY [facility] Last Admin: 01/26/19 13:25 Dose: 81 mg Calcitriol (Rocaltrol) 0.25 mcg PO DAILY [facility] Last Admin: 01/26/19 13:24 Dose: 0.25 mcg Calcium Acetate (Phoslo) 667 mg PO TIDCC [facility] Last Admin: 01/27/19 08:10 Dose: 667 mg Carvedilol (Coreg) 6.25 mg PO BID [facility] Last Admin: 01/26/19 17:42 Dose: 6.25 mg Clopidogrel Bisulfate (Plavix) 75 mg PO DAILY [facility] Last Admin: 01/26/19 13:25 Dose: 75 mg Colchicine (Colocrys) 0.6 mg PO DAILY [facility] Last Admin: 01/26/19 13:24 Dose: 0.6 mg Epoetin Venu (Procrit) 10,000 unit IV MWF [facility] Last Admin: 01/26/19 10:44 Dose: 10,000 unit Famotidine (Pepcid) 20 mg PO DAILY [facility] Last Admin: 01/26/19 13:25 Dose: 20 mg Ferric Sodium Gluconate Complex (Ferrlecit) 125 mg IVPB DAILY [facility] Stop: 02/03/19 10:31 Last Admin: 01/26/19 10:45 Dose: 125 mg Glipizide (Glucotrol) 5 mg PO ACB [facility] Last Admin: 01/27/19 08:10 Dose: 5 mg Hydralazine HCl (Apresoline) 10 mg PO Q12 [facility] Last Admin: 01/26/19 21:30 Dose: Not Given Insulin Glargine (Lantus) 20 unit SC [facility] Last Admin: 01/26/19 21:27 Dose: 20 unit Insulin Human Regular (Novolin R) 0 unit SC [facility]; Protocol Last Admin: 01/27/19 08:11 Dose: Not Given Losartan Potassium (Cozaar) 50 mg PO DAILY [facility] Last Admin: 01/26/19 13:25 Dose: 50 mg Rosuvastatin Calcium (Crestor) 10 mg PO [facility] Last Admin: 01/26/19 21:28 Dose: 10 mg Sitagliptin Phosphate (Januvia) 25 mg PO DAILY [facility] Last Admin: 01/26/19 13:25 Dose: 25 mg - Labs Labs: 01/26/19 07:06 01/26/19 07:06 PT 12.1 SECONDS (9.7-12.2) 01/22/19 05:51 INR 1.1 01/22/19 05:51 APTT 38.5 SECONDS (21-34) H 01/22/19 05:51
--- NOTE | 2019-01-27 08:40 | CP.PCM.PN ---
Subjective - Date & Time of Evaluation Date of Evaluation: 01/27/19 Time of Evaluation: 08:40 - Subjective Subjective: bp low today afebrile hb up to about 10 notes read just finished walking around nurse,s station ate most of breakfast ROS no chills fever no chest pain palpitations no sob cough hemoptysis no abd pain n,v,d no dysuria hematuria no back or joint pain pain over fistula no pruritus no headache dizziness Objective - Vital Signs/Intake and Output Vital Signs (last 24 hours): Temp Pulse Resp BP Pulse Ox 98.7 F 101 H 18 107/63 96 01/27/19 07:00 01/27/19 07:49 01/27/19 07:00 01/27/19 07:00 01/27/19 07:00 - Medications Medications: Current Medications Acetaminophen (Tylenol 325mg Tab) 650 mg PO Q6 PRN PRN Reason: Pain, Mild (1-3) Last Admin: 01/22/19 21:48 Dose: 650 mg Amlodipine Besylate (Norvasc) 10 mg PO DAILY [facility] Last Admin: 01/26/19 13:25 Dose: 10 mg Aspirin (Ecotrin) 81 mg PO DAILY [facility] Last Admin: 01/26/19 13:25 Dose: 81 mg Calcitriol (Rocaltrol) 0.25 mcg PO DAILY [facility] Last Admin: 01/26/19 13:24 Dose: 0.25 mcg Calcium Acetate (Phoslo) 667 mg PO TIDCC [facility] Last Admin: 01/27/19 08:10 Dose: 667 mg Carvedilol (Coreg) 6.25 mg PO BID [facility] Last Admin: 01/26/19 17:42 Dose: 6.25 mg Clopidogrel Bisulfate (Plavix) 75 mg PO DAILY [facility] Last Admin: 01/26/19 13:25 Dose: 75 mg Colchicine (Colocrys) 0.6 mg PO DAILY [facility] Last Admin: 01/26/19 13:24 Dose: 0.6 mg Epoetin Venu (Procrit) 10,000 unit IV MWF [facility] Last Admin: 01/26/19 10:44 Dose: 10,000 unit Famotidine (Pepcid) 20 mg PO DAILY [facility] Last Admin: 01/26/19 13:25 Dose: 20 mg Ferric Sodium Gluconate Complex (Ferrlecit) 125 mg IVPB DAILY [facility] Stop: 02/03/19 10:31 Last Admin: 01/26/19 10:45 Dose: 125 mg Glipizide (Glucotrol) 5 mg PO ACB [facility] Last Admin: 01/27/19 08:10 Dose: 5 mg Hydralazine HCl (Apresoline) 10 mg PO Q12 [facility] Last Admin: 01/26/19 21:30 Dose: Not Given Insulin Glargine (Lantus) 20 unit SC HS [facility] Last Admin: 01/26/19 21:27 Dose: 20 unit Insulin Human Regular (Novolin R) 0 unit SC ACHS [facility]; Protocol Last Admin: 01/27/19 08:11 Dose: Not Given Losartan Potassium (Cozaar) 50 mg PO DAILY [facility] Last Admin: 01/26/19 13:25 Dose: 50 mg Rosuvastatin Calcium (Crestor) 10 mg PO HS [facility] Last Admin: 01/26/19 21:28 Dose: 10 mg Sitagliptin Phosphate (Januvia) 25 mg PO DAILY [facility] Last Admin: 01/26/19 13:25 Dose: 25 mg - Labs Labs: 01/27/19 08:17 01/26/19 07:06 PT 12.1 SECONDS (9.7-12.2) 01/22/19 05:51 INR 1.1 01/22/19 05:51 APTT 38.5 SECONDS (21-34) H 01/22/19 05:51 - Constitutional Appears: Well, No Acute Distress - ENT Exam ENT Exam: Mucous Membranes Moist - Respiratory Exam Respiratory Exam: Clear to Ausculation Bilateral, NORMAL BREATHING PATTERN - Cardiovascular Exam Cardiovascular Exam: REGULAR RHYTHM. absent: JVD - GI/Abdominal Exam GI & Abdominal Exam: Soft. absent: Distended, Tenderness - Extremities Exam Extremities Exam: absent: Calf Tenderness, Pedal Edema Additional comments: bandage over left forearm bruit heard left radial pulse present hand warm good communications instructor - Back Exam Back Exam: absent: CVA tenderness (L), CVA tenderness (R) - Neurological Exam Neurological Exam: Alert, Awake - Psychiatric Exam Psychiatric exam: Normal Affect, Normal Mood - Skin Skin Exam: Dry, Warm Assessment and Plan (1) Coronary artery arteriosclerosis Status: Acute (2) ESRD (end stage renal disease) Status: Acute (3) Coronary artery disease Status: Acute - Assessment and Plan (Free Text) Plan: follow cardiology recommendations schedule dialysis for 01/28 orders written await outpatient dialysis schedule
[2019-01-27 08:54] LABS: ALBUMIN 3.9 g/dL (3.5-5.0); CALCIUM 9.2 mg/dl (8.6-10.4)
[2019-01-27] MEDS: Ferric Sodium Gluconat Complex 62.5 mg/5 ml Vial IVPB SCH (10:44)
[2019-01-27 11:41] VITALS: BP 151/73
[2019-01-27 13:54] VITALS: PULSE 89
--- NOTE | 2019-01-27 14:26 | CP.PCM.PN ---
Subjective - Date & Time of Evaluation Date of Evaluation: 01/27/19 Time of Evaluation: 12:00 - Subjective Subjective: Patient seen today, denies any chest pain, sob, abdominal pain N/V a febrile labs and vss reviewed - hgb stable- 10.1 s/p LUE AV fistula s/p LAD stent placed on 01/21 Objective - Vital Signs/Intake and Output Vital Signs (last 24 hours): Temp Pulse Resp BP Pulse Ox 98.7 F 89 18 151/73 H 96 01/27/19 07:00 01/27/19 13:54 01/27/19 07:00 01/27/19 11:41 01/27/19 07:00 - Medications Medications: Current Medications Acetaminophen (Tylenol 325mg Tab) 650 mg PO Q6 PRN PRN Reason: Pain, Mild (1-3) Last Admin: 01/22/19 21:48 Dose: 650 mg Amlodipine Besylate (Norvasc) 10 mg PO DAILY [facility] Last Admin: 01/27/19 10:45 Dose: 10 mg Aspirin (Ecotrin) 81 mg PO DAILY [facility] Last Admin: 01/27/19 10:45 Dose: 81 mg Calcitriol (Rocaltrol) 0.25 mcg PO DAILY [facility] Last Admin: 01/27/19 10:44 Dose: 0.25 mcg Calcium Acetate (Phoslo) 667 mg PO TIDCC [facility] Last Admin: 01/27/19 12:16 Dose: 667 mg Carvedilol (Coreg) 6.25 mg PO BID [facility] Last Admin: 01/27/19 10:45 Dose: 6.25 mg Clopidogrel Bisulfate (Plavix) 75 mg PO DAILY [facility] Last Admin: 01/27/19 10:44 Dose: 75 mg Colchicine (Colocrys) 0.6 mg PO DAILY [facility] Last Admin: 01/27/19 10:44 Dose: 0.6 mg Epoetin Venu (Procrit) 10,000 unit IV MWF [facility] Last Admin: 01/26/19 10:44 Dose: 10,000 unit Famotidine (Pepcid) 20 mg PO DAILY [facility] Last Admin: 01/27/19 10:45 Dose: 20 mg Ferric Sodium Gluconate Complex (Ferrlecit) 125 mg IVPB DAILY [facility] Stop: 02/03/19 10:31 Last Admin: 01/27/19 10:44 Dose: 125 mg Glipizide (Glucotrol) 5 mg PO ACB [facility] Last Admin: 01/27/19 08:10 Dose: 5 mg Hydralazine HCl (Apresoline) 10 mg PO Q12 [facility] Last Admin: 01/27/19 11:41 Dose: 10 mg Insulin Glargine (Lantus) 20 unit SC HS [facility] Last Admin: 01/26/19 21:27 Dose: 20 unit Insulin Human Regular (Novolin R) 0 unit SC ACHS [facility]; Protocol Last Admin: 01/27/19 12:16 Dose: 4 units Losartan Potassium (Cozaar) 50 mg PO DAILY [facility] Last Admin: 01/27/19 10:45 Dose: 50 mg Rosuvastatin Calcium (Crestor) 10 mg PO HS [facility] Last Admin: 01/26/19 21:28 Dose: 10 mg Sitagliptin Phosphate (Januvia) 25 mg PO DAILY [facility] Last Admin: 01/27/19 10:44 Dose: 25 mg - Labs Labs: 01/27/19 08:17 01/27/19 08:17 PT 12.1 SECONDS (9.7-12.2) 01/22/19 05:51 INR 1.1 01/22/19 05:51 APTT 38.5 SECONDS (21-34) H 01/22/19 05:51 Assessment and Plan - Assessment and Plan (Free Text) Assessment: A/P 58 yr old male with pmhx of DM, HTN, HLD, hyperuricemia, gout, diabetic nephropathy admitted with renal failure requiring HD and anemia s/p perm cath placed on 01/16 and started on HD s/p LAD stent placed on 01/21 s/p AV fistula creation Patient has a HD slot [facility] MWF schedule at 3 pm D/w Dr. Aguirre, cleared fro discharge home today and f/u with his office in 1 week [address] dDr. Mujica office , Patient needs to continue aspirin and plavix beside other medications Discharge plan discussed with patient , who understand and agrees with plan rx given upon discharge . The following instructions given to patient upon discharge Please continue HD MWF at 3 pm at [facility]- start tomorrow Please follow up with Dr. Aguirre office in 1 week (follow up visit) Please follow up with Dr. Mujica office - call and make appointment( follow up vist s/p stent) Please follow up with Dr. Woo office - call and make appointment ( follow up visit after fistula - site check and sutures removal) PLEASE TAKE PLAVIX FOR 1 YEAR , UNLESS MD ASKED TO STOP IT Please continue all other medication as per med. rec.
== END 2019-01-27 15:00 | disposition home or self-care (01) | DRG 246 ==
LOC: C.ER 19:57 → C.9E 21:22 → C.6T 22:46 → OBSVTOIN 01-15 11:35 → C.9I 01-19 11:52 → C.3T 01-23 13:12 → C.6T 01-23 19:06
PROVIDERS: ADMIT Internal Medicine; ATTEND Internal Medicine
PROC: 5A1D70Z Performance of Urinary Filtration, Intermittent, Less than 6 Hours Per Day (ICD-10-PCS; 2019-01-16)
PROC: 02HV33Z Insertion of Infusion Device into Superior Vena Cava, Percutaneous Approach (ICD-10-PCS; principal; 2019-01-16 11:15)
PROC: 5A1D70Z Performance of Urinary Filtration, Intermittent, Less than 6 Hours Per Day (ICD-10-PCS; 2019-01-17)
PROC: 4A023N7 Measurement of Cardiac Sampling and Pressure, Left Heart, Percutaneous Approach (ICD-10-PCS; 2019-01-19)
PROC: B2111ZZ Fluoroscopy of Multiple Coronary Arteries using Low Osmolar Contrast (ICD-10-PCS; 2019-01-19)
PROC: 5A1D70Z Performance of Urinary Filtration, Intermittent, Less than 6 Hours Per Day (ICD-10-PCS; 2019-01-19)
PROC: 5A1D70Z Performance of Urinary Filtration, Intermittent, Less than 6 Hours Per Day (ICD-10-PCS; 2019-01-21)
PROC: 027034Z Dilation of Coronary Artery, One Artery with Drug-eluting Intraluminal Device, Percutaneous Approach (ICD-10-PCS; 2019-01-21)
PROC: 03180KD Bypass Left Brachial Artery to Upper Arm Vein with Nonautologous Tissue Substitute, Open Approach (ICD-10-PCS; 2019-01-22)
PROC: 5A1D70Z Performance of Urinary Filtration, Intermittent, Less than 6 Hours Per Day (ICD-10-PCS; 2019-01-23)
PROC: 5A1D70Z Performance of Urinary Filtration, Intermittent, Less than 6 Hours Per Day (ICD-10-PCS; 2019-01-23)
PROC: B5181ZA Fluoroscopy of Superior Vena Cava using Low Osmolar Contrast, Guidance (ICD-10-PCS; 2019-01-26)
DX: I21.4 Non-ST elevation (NSTEMI) myocardial infarction (principal); N18.6 End stage renal disease; I12.0 Hypertensive chronic kidney disease with stage 5 chronic kidney disease or end stage renal disease; N17.9 Acute kidney failure, unspecified; E87.5 Hyperkalemia; E78.5 Hyperlipidemia, unspecified; E87.6 Hypokalemia; I25.10 Atherosclerotic heart disease of native coronary artery without angina pectoris; M10.9 Gout, unspecified; Z99.2 Dependence on renal dialysis; Z79.4 Long term (current) use of insulin; K21.9 Gastro-esophageal reflux disease without esophagitis; E11.21 Type 2 diabetes mellitus with diabetic nephropathy; E11.22 Type 2 diabetes mellitus with diabetic chronic kidney disease; D63.1 Anemia in chronic kidney disease